=== PATIENT | female | born 1955 | race Caucasian/White ===

== ENCOUNTER → 2024-06-02 15:02 | Outpatient (REF) | payer MEDICARE, BC, SELFPAY | LOC: PAVMRI 15:02 | PROVIDERS: ATTENDING PHYSICIAN Physician Assistant; FAMILY PHYSICIAN Internal Medicine | DX: M54.16 Radiculopathy, lumbar region (principal) | CPT/HCPCS: 72148 ==

== ENCOUNTER 2024-06-25 12:39 | Emergency (ER) | payer MEDICARE, BC, SELFPAY ==
[2024-06-25] VITALS (7 sets, daily range): BP systolic 117–132; BP diastolic 35–72; PULSE 65; O2SAT 98; BMI 44.3
[2024-06-25] MEDS: DECADRON 10 MG IM (14:07)
--- NOTE | 2024-06-25 14:09 | ED.GENMED ---
History of Present Illness
<BERNADETTE Mclaughlin - Last Filed: 06/25/24 16:36>
General
Chief Complaint: Musculo-Skeletal Complaint
Source: patient
Exam Limitations: none
Time Seen by Provider: 06/25/24 12:53
Nursing documentation reviewed up to this point in time: agreed with
History of Present Illness
History of Present Illness:
68 yr. old now female presents to the ER from [facility] complaining of pain to the right buttock which radiates down her right leg. She reports she has had this for years however it has gotten worse. She recently saw [facility]
orthopedics and had an MRI done June 02. She has another appointment on July 13 for further evaluation of this pain.
She took acetaminophen however nothing else. She normally does walk with a walker it is taking longer for her to walk. She denies any recent trauma. She denies any weakness in her legs. She denies any loss of bowel or bladder.
Past History
<BERNADETTE Mclaughlin - Last Filed: 06/25/24 16:36>
Past History
ED Past Medical History: HTN, Hypercholesterolemia, Seizures and Psychiatric (Depression)
ED Past Surgical History: Orthopedic (Foot surgery Left)
Social History
Tobacco: Former smoker
Alcohol: None
Personal:
Living: half-way ([place])
Review of Systems
<BERNADETTE Mclaughlin - Last Filed: 06/25/24 16:36>
Review of Systems
Allergies reviewed?: Yes
All Other Systems: ROS reviewed and negative except as documented in HPI and ROS
Constitutional: Reports no symptoms; Denies fever, fatigue or chills
Respiratory: Reports no symptoms
Cardiac: Reports no symptoms
: Denies incontinence
Musculoskeletal: Reports other (Pain in right buttocks rating down right anterior thigh)
Skin: Reports no symptoms
Neurological: Reports no symptoms
Psychiatric: Reports no symptoms
Phy Exam
<BERNADETTE Mclaughlin - Last Filed: 06/25/24 16:36>
General Physical Exam
General Presentation: no apparent distress
General age: appears stated age
General Skin: warm and dry
General Habitus: elderly and obese
General Hydration: appears well hydrated
Neurological Exam
Neurological Exam: alert, oriented x3 and other (Normal distal sensation bilaterally normal dorsiflexion plantarflexion negative straight leg raise)
Musculoskeletal Exam
Musculoskeletal Exam: other (strong pulses b/ l l/e tender to the right buttock.)
Skin Exam
Skin Exam: normal color and warm/dry
Psychiatric Exam
Psychiatric Exam: normal mood/affect
Course
<BERNADETTE Mclaughlin - Last Filed: 06/25/24 16:36>
Orders/Labs/Results
Orders:
Orders
06/25/24 13:54
Dexamethasone Sod Phosphate [Decadron] 10 mg IM NOW STA
06/25/24 14:15
Gabapentin [Neurontin] 800 mg PO NOW STA
Physical Therapy Consult [Pt Eval And Treat] Urgent
Activity Level: Ambulate
Vital Signs
Initial and Last Documented VS:
Initial Vital Signs
Temp Pulse Resp BP Pulse Ox
98 F 76 12 129/72 100
06/25/24 12:46 06/25/24 12:46 06/25/24 12:46 06/25/24 12:46 06/25/24 12:46
Last Documented Vital Signs
Temp Pulse Resp BP Pulse Ox
98 F 79 16 132/64 96
06/25/24 12:46 06/25/24 14:11 06/25/24 14:11 06/25/24 14:11 06/25/24 14:11
Area Operations Manager consulted with Physician
Area Operations Manager consulted with physician?: Yes
Name of Physician Consulted: Percy
<Vinny Greer DO - Last Filed: 06/25/24 14:22>
Orders/Labs/Results
Orders:
Orders
06/25/24 13:54
Dexamethasone Sod Phosphate [Decadron] 10 mg IM NOW STA
06/25/24 14:15
Gabapentin [Neurontin] 800 mg PO NOW STA
Physical Therapy Consult [Pt Eval And Treat] Urgent
Activity Level: Ambulate
Vital Signs
Initial and Last Documented VS:
Initial Vital Signs
Temp Pulse Resp BP Pulse Ox
98 F 76 12 129/72 100
06/25/24 12:46 06/25/24 12:46 06/25/24 12:46 06/25/24 12:46 06/25/24 12:46
Last Documented Vital Signs
Temp Pulse Resp BP Pulse Ox
98 F 79 16 132/64 96
06/25/24 12:46 06/25/24 14:11 06/25/24 14:11 06/25/24 14:11 06/25/24 14:11
<BERNADETTE Mclaughlin - Last Filed: 06/25/24 16:36>
MDM/Problems Addressed
Differential Diagnosis Includes:
Not limited to sciatica and radiculopathy
MDM/Problems Addressed:
Symptoms are consistent with sciatica. Patient was able to ambulate with a walker here. She was given 1 dose of Decadron IM. Will send home with a steroid Dosepak. Patient has an appointment July 13 with [facility] orthopedics for further
evaluation of this and to review her MRI. No neurological deficits. Patient no acute distress . Pt was eval by PT.
Patient feels comfortable going home not limited to sciatica and radiculopathy
<BERNADETTE Mclaughlin - Last Filed: 06/25/24 16:36>
*Critical Care Note
Total Time (30-74mins, 75-104mins- exclusive of procedures): Not Applicable
ED Attending Note
<BERNADETTE Mclaughlin - Last Filed: 06/25/24 16:36>
-
Portions of this chart may have been created with voice recognition software.� Occasional wrong word or��sound alike� substitutions may have occurred due to the inherent limitations of voice recognition software.
<Vinny Greer DO - Last Filed: 06/25/24 14:22>
ED Attending Note
Patient seen and examined by attending physician: Yes
I performed the substantive portion of visit, reviewed & personally made and approve the management plan that is documented in note by myself or STEW.: Yes
ED Attending Note:
Patient is a 68-year-old female from a local assisted living facility who presents with increasing right buttock pain and difficulty ambulating. Patient had an MRI recently and this is an exacerbation of an ongoing problem for weeks to months.
Patient denies fever or chills. Patient denies any recent illnesses or injuries. Patient denies any incontinence. Patient is having increasing amount difficulty ambulating and putting pressure on it. On physical exam the patient is morbidly
obese with tenderness in the right buttock that increases with straight leg raising on the right. Patient's sensory is intact as well as no motor focality. Patient appears to have sciatica. Patient will be treated accordingly and discharged.
Discharge Plan
Departure
Patient Disposition: Home (Routine Discharge)
Date of Disposition: 06/25/24
Time of Disposition: 16:30
Patient with high blood pressure during this ER visit?: No
Condition: Fair
Covid-19: Not Applicable
Discharge Problem:
Sciatica
Instructions: Sciatica (DC)
Prescriptions:
New
methylprednisolone [Medrol (Sekou)] 4 mg tablets,dose pack
See Rx Instructions .ROUTE .COMPLEX Qty: 21 0RF
Rx Instructions:
for 6 days
No Action
lamotrigine 200 mg Tablet
200 mg PO BID
atorvastatin [Lipitor] 10 mg Tablet
10 mg PO HS
lisinopril 20 mg Tablet
40 mg PO HS
acetazolamide 250 mg Tablet
250 mg PO DAILY
primidone 250 mg Tablet
250 mg PO DAILY
primidone 250 mg Tablet
500 mg PO HS
gabapentin 800 mg Tablet
800 mg PO TID
aspirin 81 mg Tablet,Chewable
81 mg PO DAILY
levetiracetam [Keppra] 750 mg Tablet
1,500 mg PO BID
calcium carbonate-vitamin D3 [Calcium 500 With D] 500 mg-10 mcg (400 unit) Tablet
1 tab PO BID
cyanocobalamin (vitamin B-12) [Vitamin B-12] 1,000 mcg Tablet Extended Release
1,000 mcg PO DAILY
loperamide [Imodium A-D] 2 mg Capsule
2 mg PO Q6HPRN PRN (Reason: diarrhea)
acetaminophen 500 mg Tablet
500 mg PO Q6HPRN PRN (Reason: pain/fever)
guaifenesin [Siltussin OROZCO] 100 mg/5 mL Liquid
200 mg PO Q4HPRN PRN (Reason: cough)
cholecalciferol (vitamin D3) 25 mcg (1,000 unit) Tablet
25 mcg PO DAILY
Referrals:
Jose F Song MD [Family Provider] -
Activity Restrictions/Additional Instructions:
Follow-up with [facility] orthopedics as scheduled. You may start Medrol Dosepak tomorrow this was sent to your pharmacy. Continue to use your walker for ambulation return if any worsening of symptoms
Interventions
Interventions:
*Risk Screen - Suicide Last Done: 06/25/24 12:43
*General Assessment Last Done: 06/25/24 12:43
*Neglect/Abuse Screening Last Done: 06/25/24 12:43
ED- Fall Risk Assessment Last Done: 06/25/24 12:47
*ED COVID-19 Vaccine History Last Done: 06/25/24 12:43
ED-Musculoskeletal Assessment Last Done: 06/25/24 12:52
Discharge Date and Time
Print Language: MALAWIAN
[2024-06-25] MEDS: NEURONTIN 800 MG PO (16:22)
--- NOTE | 2024-06-25 22:05 | EDRN ---
Pt has been sleeping, called because she needed to go to the bathroom. Pt upset she is still here waiting for d/c transport 'now I know why people hate going to the hospital.' Pt ambulatory to bathroom with walker, gait steady. Pt complained
about hospital gown asking why she had to wear one. Explained why patients change into hospital gowns. 'I was seen 25 years ago so why the hell do I need it?' Pt informed she can remove the gown and put on her top. Pt assisted with putting on
her bra per her request. Pt put on her top then got back into stretcher. Pt declined food and beverage stating it would just make her have to go to the bathroom more. Informed there is one pt waiting to be picked up then she will be picked up.
--- NOTE | 2024-06-25 23:27 | EDRN ---
Report given to Acute Care crew
== END 2024-06-25 23:35 | disposition home or self-care (01) ==
LOC: EMR 12:39
PROVIDERS: EMERGENCY PHYSICIAN Emergency Medicine; FAMILY PHYSICIAN Internal Medicine
DX: M54.30 Sciatica, unspecified side (principal); I10 Essential (primary) hypertension; E78.00 Pure hypercholesterolemia, unspecified; E66.01 Morbid (severe) obesity due to excess calories; Z87.891 Personal history of nicotine dependence
CPT/HCPCS: 99282; 96372

== ENCOUNTER → 2024-07-24 09:33 | Outpatient (REF) | payer MEDICARE, BC, SELFPAY ==
[2024-07-24 11:26] LABS: ALT (SGPT) 14 U/L (0-35); AST (SGOT) 19 U/L (14-36); Albumin 3.6 g/dl (3.5-5.0); Alkaline Phosphatase 75 U/L (38-126); Direct Bilirubin 0.2 mg/dl (0.0-0.4); Total Bilirubin 0.3 mg/dl (0.2-1.3); Total Protein 6.5 g/dl (6.3-8.2)
== END ==
LOC: OLABWPC 09:33
PROVIDERS: ATTENDING PHYSICIAN Internal Medicine; OTHER PHYSICIAN Nurse Practitioner Family
DX: E78.5 Hyperlipidemia, unspecified (principal)
CPT/HCPCS: 36415; 80076

== ENCOUNTER 2024-09-25 15:37 | Emergency (ER) | payer MEDICARE, BC, SELFPAY ==
[2024-09-25 15:42] VITALS: BP 94/49
[2024-09-25 15:48] VITALS: BMI 35.0
[2024-09-25 15:54] LABS: % Basophils 0.5 % (0-2); % Eosinophils 2.3 % (0-6); % Immature Granulocytes 0.3 % (0-0.5); % Lymphocytes 17.4 % (20.5-51.1); % Monocytes 13.2 % (1.7-9.3); % Neutrophils 66.3 % (42.2-75.2); Absolute Eosinophils 0.2 10^3/uL (0-0.7); Absolute Lymphocytes 1.3 10^3/uL (1.2-3.4); Absolute Neutrophils 4.8 10^3/uL (1.4-6.5); Hematocrit 37.3 % (37.0-47.0); Hemoglobin 12.4 g/dL (12.0-16.0); Mean Corp Hgb Conc. 33.2 g/dL (33.0-37.0); Mean Corpuscular Hgb 34.4 pg (27.0-31.0); Mean Corpuscular Volume 103.6 fL (81.0-99.0); Nucleated Red Blood Cells % 0 %; Platelet Count 179 10^3/uL (130-400); Red Cell Dist. Width 11.9 % (11.5-14.5); White Blood Cell Count 7.3 10^3/uL (4.8-10.8)
[2024-09-25 16:00] VITALS: BP 108/55
[2024-09-25 16:13] LABS: ALT (SGPT) 27 U/L (0-35); AST (SGOT) 29 U/L (14-36); Albumin 3.9 g/dl (3.5-5.0); Alkaline Phosphatase 98 U/L (38-126); Blood Urea Nitrogen 32 mg/dl (7-17); Calcium 9.3 mg/dl (8.4-10.2); Carbon Dioxide 24 mmol/L (22-30); Chloride 98 mmol/L (98-107); Estimated Creatinine Clearance 30 ml/min; Glucose 98 mg/dl (70-99); Potassium 3.6 mmol/L (3.5-5.1); Sodium 134 mmol/L (135-145); Total Bilirubin 0.4 mg/dl (0.2-1.3); eGFR 24.73
[2024-09-25] MEDS: NSS 1000 IV (16:21)
--- NOTE | 2024-09-25 16:33 | ED.GENMED ---
History of Present Illness
<Asim Knox DO, Resident - Last Filed: 09/25/24 16:49>
General
Chief Complaint: Abdominal Symptoms
Source: patient
Exam Limitations: none
Time Seen by Provider: 09/25/24 15:58
History of Present Illness
History of Present Illness:
69-year-old female past medical history significant for epilepsy/seizures, hyperlipidemia, hypertension presents from [facility] for approximately 4 days of nausea, vomiting, diarrhea and weakness. Weakness started over the
last 24 hours, patient endorses vomiting of 2 days duration starting on Wednesday, with associated nausea. She also endorses starting to have diarrhea, which resolved last night. Diarrhea is nonbloody, watery. Patient reports not eating and drinking
well, endorses that there are sick contacts at [facility], and she denies any knowledge of any food which triggered the symptoms.
Past History
<Asim Knox DO, Resident - Last Filed: 09/25/24 16:49>
Past History
ED Past Medical History: HTN, Hypercholesterolemia, Seizures and Psychiatric (Depression)
ED Past Surgical History: Orthopedic (Foot surgery Left)
Social History
Tobacco: Former smoker
Alcohol: None
Personal:
Living: prison ([place])
Review of Systems
<Asim Knox DO, Resident - Last Filed: 09/25/24 16:49>
Review of Systems
Constitutional: Denies fever
Respiratory: Reports no symptoms
Cardiac: Reports no symptoms
ABD/GI: Reports abdominal pain (Endorses abdominal pain when lying prone), nausea, vomiting and diarrhea
Musculoskeletal: Reports other (Left ankle pain)
Neurological: Reports weakness and other (Reports petit mall seizures, which happen frequently every couple days or so. Her last episode was 3 to 4 days prior.)
Phy Exam
<Asim Knox DO, Resident - Last Filed: 09/25/24 16:49>
General Physical Exam
General Presentation: well appearing
General Mental: alert
General Hydration: dry mucous membranes and poor skin turgor
Cardiovascular Exam
Cardiovascular Exam: regular rate/rhythm, no edema and no murmur
Pulmonary Exam
Pulmonary Exam: lungs clear
Oxygen Status: room air
Gastrointestinal Exam
Gastrointestinal Exam: non tender (Nontender in all 4 quadrants to deep and light palpation), soft and other (No rebound, no guarding on exam)
Neurological Exam
Neurological Exam: alert and oriented x3
Psychiatric Exam
Psychiatric Exam: normal mood/affect
Course
<Asim Knox DO, Resident - Last Filed: 09/25/24 16:49>
Orders/Labs/Results
Orders:
Orders
09/25/24 15:40
Complete Blood Count/With Diff Urgent
Comprehensive Metabolic Panel Urgent
09/25/24 16:17
Electrocardiogram (*1) Urgent
Reason for Study: Abdominal Pain
EKG- Treatment ONCE
Norovirus by PCR Urgent
SOM Source: Feces/Stool
Specimen Description:
0.9% Sodium Chloride 1000 ml [Nss] 1,000 ml IV BOLUS
Abnormal Lab Results
09/25/24
15:40
RBC 3.60 L 10^6/uL
(4.20-5.40)
MCV 103.6 H fL
(81.0-99.0)
MCH 34.4 H pg
(27.0-31.0)
MPV 12.0 H fL
(7.4-10.4)
Absolute Monos (auto) 1.0 H 10^3/uL
(0.1-0.6)
Lymphocytes % 17.4 L %
(20.5-51.1)
Monocytes % 13.2 H %
(1.7-9.3)
Sodium 134 L mmol/L
(135-145)
BUN 32 H mg/dl
(7-17)
Creatinine 2.1 H mg/dL
(0.6-1.0)
09/25/24 15:40
09/25/24 15:40
Vital Signs
Initial and Last Documented VS:
Initial Vital Signs
Temp Pulse Resp BP Pulse Ox
97.5 F 76 14 94/49 94
09/25/24 15:42 09/25/24 15:42 09/25/24 15:42 09/25/24 15:42 09/25/24 15:42
Last Documented Vital Signs
Temp Pulse Resp BP Pulse Ox
97.5 F 71 14 108/55 94
09/25/24 15:42 09/25/24 16:45 09/25/24 15:42 09/25/24 16:00 09/25/24 16:30
Judelt;Silvano Pete, DO - Last Filed: 09/25/24 17:39>
Orders/Labs/Results
Orders:
Orders
09/25/24 15:40
Complete Blood Count/With Diff Urgent
Comprehensive Metabolic Panel Urgent
09/25/24 16:17
Electrocardiogram (*1) Urgent
Reason for Study: Abdominal Pain
EKG- Treatment ONCE
Norovirus by PCR Urgent
SOM Source: Feces/Stool
Specimen Description:
0.9% Sodium Chloride 1000 ml [Nss] 1,000 ml IV BOLUS
Abnormal Lab Results
09/25/24
15:40
RBC 3.60 L 10^6/uL
(4.20-5.40)
MCV 103.6 H fL
(81.0-99.0)
MCH 34.4 H pg
(27.0-31.0)
MPV 12.0 H fL
(7.4-10.4)
Absolute Monos (auto) 1.0 H 10^3/uL
(0.1-0.6)
Lymphocytes % 17.4 L %
(20.5-51.1)
Monocytes % 13.2 H %
(1.7-9.3)
Sodium 134 L mmol/L
(135-145)
BUN 32 H mg/dl
(7-17)
Creatinine 2.1 H mg/dL
(0.6-1.0)
09/25/24 15:40
09/25/24 15:40
Vital Signs
Initial and Last Documented VS:
Initial Vital Signs
Temp Pulse Resp BP Pulse Ox
97.5 F 76 14 94/49 94
09/25/24 15:42 09/25/24 15:42 09/25/24 15:42 09/25/24 15:42 09/25/24 15:42
Last Documented Vital Signs
Temp Pulse Resp BP Pulse Ox
97.5 F 71 14 108/55 94
09/25/24 15:42 09/25/24 16:45 09/25/24 15:42 09/25/24 16:00 09/25/24 16:30
<Asim Knox DO, Resident - Last Filed: 09/25/24 16:49>
MDM/Problems Addressed
Differential Diagnosis Includes:
Acute viral gastrointestinal illness vs dehydration vs generalized weakness
MDM/Problems Addressed:
#Acute viral gastrointestinal illness versus dehydration versus weakness
Symptoms consistent with acute viral GI illness, very likely norovirus, patient endorses sick contacts at [facility]
Norovirus testing ordered, results pending currently
Currently patient is not nauseous or vomiting, diarrhea has resolved. however, patient endorsing generalized weakness
Very likely weakness is secondary to dehydration
Ordered 1 L normal saline bolus, will also encourage oral intake of fluids
Will check electrolytes and replete as needed, labs significant for sodium 134, very likely hypovolemic hyponatremia.
Currently no need for antinausea medications as patient is not nauseous, will treat symptomatically as needed
Patient is noted to be in acute renal failure/SARAH with a creatinine 2.1, her baseline approximately 0.7
BUN/creatinine ratio 15.2, indicating possible infrarenal etiology for SARAH, likely exacerbated by intravascular volume loss
We encouraged patient to consider inpatient admission, however she is adamant about not wanting to be admitted. Will initiate normal saline infusion and oral intake of fluids and reevaluate in an hour
<Silvano Pete DO - Last Filed: 09/25/24 17:39>
*Pulse Oximetry
Patient hypoxic: no
*Founder And Chief Executive Officer Interpretation
Rate: normal
Interpretation: normal
Heart Rate: 78
Rhythm: sinus
*Critical Care Note
Total Time (30-74mins, 75-104mins- exclusive of procedures): Not Applicable
<Silvano Pete DO - Last Filed: 09/25/24 17:39>
Update Note
Update Note:
5:40 PM update, patient tolerating p.o. fluids, no vomitus
ED Attending Note
<Asim Knox DO, Resident - Last Filed: 09/25/24 16:49>
-
Portions of this chart may have been created with voice recognition software.� Occasional wrong word or��sound alike� substitutions may have occurred due to the inherent limitations of voice recognition software.
<Silvano Pete DO - Last Filed: 09/25/24 17:39>
ED Attending Note
Patient seen and examined by attending physician: Yes
I performed a history and physical exam of patient and discussed management with resident, I reviewed resident's note and agree with documented findings and plan of care.: Yes
ED Attending Note:
Seen with resident examined independently prison patient nausea vomiting diarrhea for a few days positive sick contacts, currently tolerating some p.o. fluids, sent here here she states she has been tired sleeping a lot no abdominal pain no
blood in her stools, labs are noted looks like she has acute renal insufficiency, suspect volume contracted, I did recommend admission she politely declined she will stay for some IV fluids, it would be reasonable although not ideal to discharge her
if she can tolerate p.o. fluids
Discharge Plan
Departure
Patient Disposition: Home (Routine Discharge)
Date of Disposition: 09/25/24
Time of Disposition: 17:39
Patient with high blood pressure during this ER visit?: No
Condition: Good
Discharge Problem:
Acute dehydration
Instructions: Dehydration, Adult (DC), Diarrhea in teens and adults
Prescriptions:
No Action
lamotrigine 200 mg Tablet
200 mg PO BID
atorvastatin [Lipitor] 10 mg Tablet
10 mg PO HS
lisinopril 20 mg Tablet
40 mg PO HS
acetazolamide 250 mg Tablet
250 mg PO DAILY
primidone 250 mg Tablet
250 mg PO DAILY
primidone 250 mg Tablet
500 mg PO HS
gabapentin 800 mg Tablet
800 mg PO TID
aspirin 81 mg Tablet,Chewable
81 mg PO DAILY
levetiracetam [Keppra] 750 mg Tablet
1,500 mg PO BID
calcium carbonate-vitamin D3 [Calcium 500 With D] 500 mg-10 mcg (400 unit) Tablet
1 tab PO BID
cyanocobalamin (vitamin B-12) [Vitamin B-12] 1,000 mcg Tablet Extended Release
1,000 mcg PO DAILY
loperamide [Imodium A-D] 2 mg Capsule
2 mg PO Q6HPRN PRN (Reason: diarrhea)
acetaminophen 500 mg Tablet
500 mg PO Q6HPRN PRN (Reason: pain/fever)
guaifenesin [Siltussin OROZCO] 100 mg/5 mL Liquid
200 mg PO Q4HPRN PRN (Reason: cough)
cholecalciferol (vitamin D3) 25 mcg (1,000 unit) Tablet
25 mcg PO DAILY
methylprednisolone [Medrol (Sekou)] 4 mg tablets,dose pack
See Rx Instructions .ROUTE .COMPLEX Qty: 21 0RF
Rx Instructions:
for 6 days
Referrals:
Jose F Song MD [Family Provider] - Next open appointment
Activity Restrictions/Additional Instructions:
Drink plenty of fluids, Zofran as needed for nausea vomiting
Interventions
Interventions:
*Risk Screen - Suicide Last Done: 09/25/24 15:42
*General Assessment Last Done: 09/25/24 15:42
*Neglect/Abuse Screening Last Done: 09/25/24 15:42
ED- Fall Risk Assessment Last Done: 09/25/24 15:42
*ED COVID-19 Vaccine History Last Done: 09/25/24 15:42
[id number] Assessment Last Done: 09/25/24 15:42
Discharge Date and Time
Print Language: DIVEHI
== END 2024-09-25 19:13 | disposition home or self-care (01) ==
LOC: EMR 15:37
PROVIDERS: Emergency Medicine; EMERGENCY PHYSICIAN Emergency Medicine; FAMILY PHYSICIAN Internal Medicine
DX: E86.0 Dehydration (principal); N17.9 Acute kidney failure, unspecified; G40.909 Epilepsy, unspecified, not intractable, without status epilepticus; E78.00 Pure hypercholesterolemia, unspecified; I10 Essential (primary) hypertension; R11.2 Nausea with vomiting, unspecified; R19.7 Diarrhea, unspecified; R53.1 Weakness; Z87.891 Personal history of nicotine dependence
CPT/HCPCS: 99283; 96360; 80053; 85025; 93005

== ENCOUNTER 2024-09-26 10:41 | Inpatient (IN) | payer MEDICARE, BC, SELFPAY ==
[2024-09-26] VITALS (7 sets, daily range): BP systolic 113–146; BP diastolic 56–80; BMI 43.3; BMI 43.6
--- NOTE | 2024-09-26 05:59 | ED.GENMED ---
History of Present Illness
General
Chief Complaint: Fall
Time Seen by Provider: 09/26/24 05:59
History of Present Illness
History of Present Illness:
TIME OF INITIAL ENCOUNTER: 6 AM
HPI: Patient presents from [facility] by ambulance. She got up from her chair with a walker, fell. She normally uses a walker. She describes 9 out of 10 pain at the left ankle. She denies any head injury. She has no neck pain. She has
been having chronic left knee pain that is noted Dr. Robertson.
EXAM:
GENERAL: The patient appears generally weak and debilitated
CERVICAL SPINE: No midline c-spine tenderness with excellent AROM
HEAD: No evidence of craniofacial trauma
CHEST: No chest wall tenderness, normal heart sounds
LUNGS: Equal lung sounds, no respiratory distress
ABDOMEN: No abdominal tenderness, no peritoneal signs
EXTREMITIES: There is tenderness to the distal left tib-fib. Mild deformity noted. Good distal perfusion
NEURO: Good strength all extremities, appropriate mental status, slow speech/language
NUMBER AND COMPLEXITY OF PROBLEMS ADDRESSED AT THE ENCOUNTER
� Chronic conditions affecting care: High blood pressure, hyperlipidemia, seizures this is an acute problem
� Acute Exacerbation and/or Progression of Chronic Illness: This is an acute problem
� Differential Diagnosis includes: Ankle sprain, ankle fracture, tib-fib fracture
AMOUNT AND/OR COMPLEXITY OF DATA TO BE REVIEWED AND ANALYZED
� I performed an independent evaluation of and my interpretation is:
EKG:
CT: CT imaging of the distal left lower extremity reviewed
X-rays: X-ray shows fracture just above the screws of the distal right tibia, on tib-fib x-ray, there also appears to be a cortical disruption near the left fibular head
Laboratory Studies: White count normal, hemoglobin 11.7, borderline renal insufficiency but creatinine is improved today compared to yesterday
Other:
� Review of other/old records: The patient was seen here yesterday with dehydration.
� Clinical information was obtained by an independent historian: EMS
� Prescriptions/Medications Considered but not given:
� Further testing considered but not performed:
RISK OF COMPLICATIONS AND/OR MORBIDITY OR MORTALITY OF PATIENT MANAGEMENT
� Social determinants of health affecting care: Resides at [facility]
� Discussion with other providers: I communicated with Dr. Ceballos who recommends long-leg splint with use labs and elevation and ice. Hospitalist, Dr. Kolb for admission at 7:10 AM
� Escalation of care including admission/observation vs risk of discharge considered: Given the patient's inability to walk and normally uses a walker to begin with, will plan admission to hospital medicine service and Ortho will
see in follow-up.
ANY OTHER UPDATES:
Past History
Past History
ED Past Medical History: HTN, Hypercholesterolemia, Seizures and Psychiatric (Depression)
ED Past Surgical History: Orthopedic (Foot surgery Left)
Social History
Tobacco: Former smoker
Alcohol: None
Personal:
Living: [facility] ([facility])
Phy Exam
Physical Exam
Physical Exam:
See HPI
Course
Orders/Labs/Results
Orders:
Orders
09/26/24 04:31
Ankle, left 3 view CR [CR Ankle - Left Min 3 Views ] Urgent
Comment:
Reason For Exam: Fall + ankle injury
09/26/24 06:11
0.9% Sodium Chloride 500 ml [Nss] 500 ml IV BOLUS
Morphine Sulfate 2 mg IV NOW STA
Ondansetron Injectable [Zofran] 4 mg IV NOW STA
09/26/24 06:14
Splints/Slings/Crut- Treatment ONCE
Location: Left
Type of Splint: Long Leg Posterior
Comment: AND SUGAR TONG
09/26/24 06:15
CR Knee - Left 4 Or More View* Urgent
Comment:
Reason For Exam: fall; chronic pain
CR Leg Tibia/fibula Left 2 Vw Urgent
Comment:
Reason For Exam: fall pain
09/26/24 06:26
Basic Metabolic Panel Urgent
Complete Blood Count/With Diff Urgent
09/26/24 06:41
CT Lower Ext W/o Iv Cont Lt Urgent
Comment:
Reason For Exam: eval DISTAL TIB FIB (fracture) per ortho
09/26/24 07:32
Consult Orthopedic [ORTHOPEDIC CONSULT] Urgent
Consulting Provider: Marvel Ceballos
Was physician already notified: Yes
09/26/24 08:33
Type+Screen Routine
09/26/24 08:56
ABO2 Urgent
BBK Wristband Number:
Associate notified that ABO2 has been ordered: [id number]
Date: 09/26/24
Time: 08:45
Energy Conservation Representative ID: [id number]
09/27/24 Breakfast
NPO
Allow oral meds: Yes
Allow clear liquids: No
09/27/24 07:00
CeFAZolin 2 GRAM [Ancef] 2 grams in 10 ml IV PRE PROCEDURE
Abnormal Lab Results
09/26/24
06:26
RBC 3.37 L 10^6/uL
(4.20-5.40)
Hgb 11.7 L g/dL
(12.0-16.0)
Hct 35.6 L %
(37.0-47.0)
MCV 105.6 H fL
(81.0-99.0)
MCH 34.7 H pg
(27.0-31.0)
MCHC 32.9 L g/dL
(33.0-37.0)
MPV 11.6 H fL
(7.4-10.4)
Absolute Lymphs (auto) 1.1 L 10^3/uL
(1.2-3.4)
Absolute Monos (auto) 0.7 H 10^3/uL
(0.1-0.6)
Lymphocytes % 17.4 L %
(20.5-51.1)
Monocytes % 12.1 H %
(1.7-9.3)
BUN 27 H mg/dl
(7-17)
Creatinine 1.1 H mg/dL
(0.6-1.0)
09/26/24 06:26
09/26/24 06:26
Vital Signs
Initial and Last Documented VS:
Initial Vital Signs
Temp Pulse Resp BP Pulse Ox
36.5 C 66 12 113/60 100
09/26/24 04:06 09/26/24 04:06 09/26/24 04:06 09/26/24 04:06 09/26/24 04:06
Last Documented Vital Signs
Temp Pulse Resp BP Pulse Ox
36.5 C 70 17 139/68 95
09/26/24 04:06 09/26/24 06:45 09/26/24 06:45 09/26/24 07:30 09/26/24 07:30
Procedures
Splinting/Sling Placement
Left Ankle:
Pre-splint extermity exam: abnormal
Type of splint: sugar-tong and posterior long arm
Splint material: fiberglass
Splint checked by provider?: Yes
Normal distal neurovascular exam?: Yes
Additional information:
I did attempt to put some pressure at the fracture site but there is no palpable improvement�planning OR by Ortho tomorrow
*Critical Care Note
Total Time (30-74mins, 75-104mins- exclusive of procedures): Not Applicable
ED Attending Note
-
Portions of this chart may have been created with voice recognition software.� Occasional wrong word or��sound alike� substitutions may have occurred due to the inherent limitations of voice recognition software.
Discharge Plan
Departure
Patient Disposition: Admit
Date of Disposition: 09/26/24
Time of Disposition: 07:10
Presentation/result/management discussed w/ accepting MD/DO: Hospitalist
Patient with high blood pressure during this ER visit?: Yes
Discharge Problem:
Displaced fracture of distal end of left tibia
Prescriptions:
No Action
lamotrigine 200 mg Tablet
200 mg PO BID
lisinopril 20 mg Tablet
40 mg PO DAILY
acetazolamide 250 mg Tablet
250 mg PO DAILY
primidone 250 mg Tablet
250 mg PO DAILY
primidone 250 mg Tablet
500 mg PO HS
gabapentin 800 mg Tablet
800 mg PO TID
aspirin 81 mg Tablet,Chewable
81 mg PO DAILY
levetiracetam [Keppra] 750 mg Tablet
1,500 mg PO BID
calcium carbonate-vitamin D3 [Calcium 500 With D] 500 mg-10 mcg (400 unit) Tablet
1 tab PO BID
loperamide [Imodium A-D] 2 mg Capsule
2 mg PO Q6HPRN PRN (Reason: diarrhea)
acetaminophen 500 mg Tablet
500 mg PO Q6HPRN PRN (Reason: mild pain/fever)
guaifenesin [Siltussin OROZCO] 100 mg/5 mL Liquid
200 mg PO Q4HPRN PRN (Reason: cough)
cholecalciferol (vitamin D3) 25 mcg (1,000 unit) Tablet
25 mcg PO DAILY
tramadol 50 mg Tablet
50 mg PO Q8HPRN PRN (Reason: moderate pain)
Lissa Lotion
1 applic TOPICAL BID
Patient Comments:
to both elbows
rosuvastatin 5 mg Tablet
5 mg PO HS
cyanocobalamin (vitamin B-12) 1,000 mcg Tablet Extended Release
1,000 mcg PO DAILY
Referrals:
Jose F Song MD [Family Provider] -
Interventions
Interventions:
*Risk Screen - Suicide Last Done: 09/26/24 04:06
*General Assessment Last Done: 09/26/24 04:06
*Neglect/Abuse Screening Last Done: 09/26/24 04:06
ED- Fall Risk Assessment Last Done: 09/26/24 04:14
*ED COVID-19 Vaccine History Last Done: 09/26/24 04:14
ED-Musculoskeletal Assessment Last Done: 09/26/24 08:36
ED- Neurological Assessment Last Done: 09/26/24 08:36
ED-Skin Assessment Last Done: 09/26/24 04:14
Discharge Date and Time
Print Language: FAROESE
[2024-09-26] MEDS: ZOFRAN 4 MG IV (06:34)
[2024-09-26] MEDS: NSS 500 IV (06:36)
[2024-09-26] MEDS: MORPHINE SULFATE 2 MG IV (06:37)
[2024-09-26 06:40] LABS: % Basophils 0.5 % (0-2); % Eosinophils 2.6 % (0-6); % Immature Granulocytes 0.2 % (0-0.5); % Lymphocytes 17.4 % (20.5-51.1); % Monocytes 12.1 % (1.7-9.3); % Neutrophils 67.2 % (42.2-75.2); Absolute Eosinophils 0.2 10^3/uL (0-0.7); Absolute Lymphocytes 1.1 10^3/uL (1.2-3.4); Absolute Monocytes 0.7 10^3/uL (0.1-0.6); Absolute Neutrophils 4.1 10^3/uL (1.4-6.5); Hematocrit 35.6 % (37.0-47.0); Hemoglobin 11.7 g/dL (12.0-16.0); Mean Corp Hgb Conc. 32.9 g/dL (33.0-37.0); Mean Corpuscular Hgb 34.7 pg (27.0-31.0); Mean Corpuscular Volume 105.6 fL (81.0-99.0); Mean Platelet Volume 11.6 fL (7.4-10.4); Nucleated Red Blood Cells % 0 %; Platelet Count 176 10^3/uL (130-400); Red Blood Cell Count 3.37 10^6/uL (4.20-5.40); Red Cell Dist. Width 11.7 % (11.5-14.5); White Blood Cell Count 6.1 10^3/uL (4.8-10.8)
[2024-09-26 06:58] LABS: Blood Urea Nitrogen 27 mg/dl (7-17); Calcium 8.7 mg/dl (8.4-10.2); Carbon Dioxide 23 mmol/L (22-30); Chloride 100 mmol/L (98-107); Estimated Creatinine Clearance 52 ml/min; Glucose 93 mg/dl (70-99); Potassium 3.6 mmol/L (3.5-5.1); Sodium 135 mmol/L (135-145); eGFR 53.72
--- NOTE | 2024-09-26 09:49 | CON.ORTHO ---
Consultation
-
Date/Time Consultation Requested: 09/26/2024 @ 7:32 AM
Date/Time Consultation Performed: 09/26/2024 @ 7:33 AM
Requesting Provider: Tio Dickerson DO
Performing Provider: Carlos Montano PA-C for Dr. Ceballos
Reason for Consultation: Left Distal Tibia Shaft Fracture
Consultation - Orthopedics
History
HPI: The patient is a 69-year-old female with a past medical history significant for Epilepsy, Hypertension, and Hyperlipidemia who presents to [facility] Emergency Department via EMS after sustaining a mechanical fall. She reports that
she got up this morning around 4 AM to use the bathroom and unfortunately twisted her left ankle and fell. She normally utilizes a walker for ambulatory assistance. She resides at [facility]. Secondary to her fall, she reports left ankle
pain. X-rays and CT scan of the lower extremity was obtained, revealing an acute mildly comminuted obliquely oriented extra-articular fracture of the distal left tibial diaphysis with mild lateral displacement and valgus angulation of the distal
fracture fragment. There was also a minimally displaced proximal fibular fracture identified. She denies any head trauma or LOC. She has been treated in our office, most recently on 09/08/2024, for chronic left knee pain secondary to
osteoarthritis. Currently, she is resting in ED bed 4 and does report pain to her left ankle. She denies any paresthesias. She denies any anticoagulation use. She has a past surgical history significant for prior left ankle ORIF in 2019 at [facility]. Orthopedic surgery has been consulted for further management.
PAST MEDICAL HISTORY: Epilepsy, Hypertension, and Hyperlipidemia.
PAST SURGICAL HISTORY: Left ankle ORIF in 2019 at [facility].
SOCIAL HISTORY: Former smoker. Denies alcohol use. Denies illicit drug use. Ambulates with assistance of a walker. Lives at [facility].
FAMILY HISTORY: Non-contributory.
REVIEW OF SYSTEMS: 12-point review of systems obtained and negative except those mentioned in the HPI.
Allergies / Home Medications
Allergy/AdvReac Type Severity Reaction Status Date / Time
No Known Allergies Allergy Verified 09/26/24 04:05
�Medication �Instructions �Recorded
acetazolamide 250 mg tablet 250 mg PO DAILY Neurological 07/23/22
Condition
aspirin 81 mg chewable tablet 81 mg PO DAILY Blood clot 07/23/22
prevention/tx
calcium 500 mg (as 1 tab PO BID Supplement 07/23/22
carbonate)-vitamin D3 10 mcg (400
unit) tablet (Calcium 500 With D)
gabapentin 800 mg tablet 800 mg PO TID Neurological 07/23/22
Condition
lamotrigine 200 mg tablet 200 mg PO BID Seizures 07/23/22
levetiracetam 750 mg tablet 1,500 mg PO BID Seizures 07/23/22
(Keppra)
lisinopril 20 mg tablet 40 mg PO DAILY Blood pressure 07/23/22
primidone 250 mg tablet 250 mg PO DAILY Seizures 07/23/22
primidone 250 mg tablet 500 mg PO HS Seizures 07/23/22
acetaminophen 500 mg tablet 500 mg PO Q6HPRN PRN mild 04/20/23
pain/fever
cholecalciferol (vitamin D3) 25 25 mcg PO DAILY Supplement 04/20/23
mcg (1,000 unit) tablet
guaifenesin 100 mg/5 mL oral liquid 200 mg PO Q4HPRN PRN cough 04/20/23
loperamide 2 mg capsule (Imodium 2 mg PO Q6HPRN PRN diarrhea 04/20/23
A-D)
cyanocobalamin (vitamin B-12) 1,000 mcg PO DAILY Supplement 09/26/24
1,000 mcg tablet,extended release
lanolin-mineral oil lotion 1 applic topical BID dry skin 09/26/24
rosuvastatin 5 mg tablet 5 mg PO HS High Cholesterol 09/26/24
tramadol 50 mg tablet 50 mg PO Q8HPRN PRN moderate pain 09/26/24
Vital Signs / Lab Results
Temp Pulse Resp BP Pulse Ox
97.7 F 70 17 139/68 95
09/26/24 04:06 09/26/24 06:45 09/26/24 06:45 09/26/24 07:30 09/26/24 07:30
09/26/24 06:26
09/26/24 06:26
RADIOGRAPHIC FINDINGS:
CR Ankle - LEFT Min 3 Views was obtained at [facility] on 09/26/2024 and was made available for my review today. Findings: There is an acute obliquely oriented, mildly comminuted, extra-articular fracture of the distal left tibial
diaphysis. There the distal tibial fracture fragment is displaced laterally by 9 mm and anteriorly by 3.5 mm. There is a large amount of focal soft tissue swelling and subcutaneous edema in the medial left lower leg overlying the distal tibial
fracture. There is a chronic healed fracture of the medial malleolus which has been treated with percutaneous pinning. There is a chronic healed fracture of the distal left fibular diaphysis treated with open reduction and internal fixation
(ORIF). There is ossification in the region of the distal tibiofibular syndesmotic ligament consistent with chronic healed injury. There are small tibiotalar and talonavicular joint osteophytes. There is a moderate sized plantar calcaneal
enthesophyte. There are small accessory peroneal and navicular ossicles. Impression: 1) Acute obliquely oriented extra-articular fracture of the distal left tibial diaphysis with mild lateral and anterior displacement of the distal tibial fracture
fragment. 2) Chronic healed fracture of the distal left fibula treated with ORIF. 3) Chronic healed fracture of the medial malleolus treated with percutaneous pinning. 4) Mild osteoarthritis of the left tibiotalar and talonavicular joints. 5)
Moderate sized plantar calcaneal enthesophyte.
CR Knee - LEFT 4 or More View* was obtained at [facility] on 09/26/2024 and was made available for my review today. Impression: Minimally displaced left proximal fibula fracture consistent with Maisonneuve fracture. Mild tricompartmental
osteoarthritis with a moderate joint effusion.
CR Leg Tibia/fibula LEFT 2 Vw was obtained at [facility] on 09/26/2024 and was made available for my review. Impression: There is a minimally displaced proximal fibular fracture. Lateral plate and screw fixation of the distal fibula.
Surgical screws to the medial malleolus. Partially visualized known distal tibial fracture.
CT Lower Ext W/o IV Cont LT was also obtained at [facility] on 09/26/2024 and was made available for my review today. Impression: 1) Acute mildly comminuted obliquely oriented extra-articular fracture of the distal left tibial diaphysis
with mild lateral displacement and valgus angulation of the distal fracture fragment. 2) Chronic healed medial malleolus fracture treated with percutaneous pinning. 3) Chronic healed distal left fibular fracture treated with ORIF. 4) Tiny chronic
avulsion fractures of the distal tip of the fibula. 5) Mild osteoarthritis of the tibiotalar and talonavicular joints. 6) Moderate sized plantar calcaneal enthesophyte.
PHYSICAL EXAM:
General: well developed, well nourished female. Laying in bed ED 4. Reports pain to the left ankle.
HEENT: NCAT. Sclera anicteric. Normal conversational hearing.
Heart: No JVD.
Lungs: Normal work of breathing on room air.
MSK: Focused examination of the left lower extremity reveals long-leg splint in place. She is able to wiggle toes. Toes are pink and warm. Capillary refill is less than 2 seconds. There is also tenderness to palpation over the proximal left
fibula. NVI distally.
Assessment / Plan
ASSESSMENT: 69-year-old female with a left acute mildly comminuted obliquely oriented extra-articular fracture of the distal tibial diaphysis and minimally displaced left proximal fibula fracture. History of left ankle ORIF in 2019 at [facility].
PLAN: Unfortunately, the patient has sustained an acute left distal tibia shaft fracture following a mechanical fall earlier this morning. We discussed the treatment options. Recommended operative fixation. The risks, benefits, potential
complications, and expected post-operative course were reviewed. She agrees to proceed with surgical intervention. Surgical and blood consents were obtained. I spoke with patient's stepdaughter (POA) Estephanie Barnes who also provided consent to
proceed with surgical intervention. We will plan for the OR tomorrow for open reduction internal fixation LEFT tibia shaft fracture with intramedullary indra, possible removal of hardware under the direction of Dr. Arvizu as long as medically
cleared to proceed. Regarding left proximal fibula fracture, this is amenable to nonoperative treatment. Patient to remain NPO pMN for surgery tomorrow 09/27/2024. She is to remain nonweightbearing to her left lower extremity. Continue with ice
and strict elevation for edema control. Continue with pain management as needed. Ancef on-call to OR. Type and screen completed. All questions were answered. Orthopedic surgery will continue to follow.
[2024-09-26] MEDS: MORPHINE SULFATE 1 MG IV (12:14)
[2024-09-26] MEDS: TYLENOL 650 MG PO ×3 (12:25→20:54)
[2024-09-26] MEDS: KEPPRA 1500 MG PO ×2 (12:58→20:54)
[2024-09-26] MEDS: MYSOLINE 250 MG PO (13:00)
[2024-09-26] MEDS: LAMICTAL 200 MG PO ×2 (13:00→20:54)
[2024-09-26] MEDS: DIAMOX 250 MG PO (13:13)
--- NOTE | 2024-09-26 15:23 | HPS.HSE ---
Family Physician
-
Family Physician: Jose F Song
Chief Complaint
-
fall with fx
History of Present Illness
69-year-old female with a past medical history significant for Epilepsy, Hypertension, and Hyperlipidemia, recent ED visit yesterday for 4 days of nausea, vomiting, diarrhea and weakness. Noted to have SARAH. Advised for admission but patient refused
and went back to her facility but received 1 L bolus. Appx baseline cr .7; She reports that she got up this morning around 4 AM to use the bathroom and unfortunately twisted her left ankle and fell. She normally utilizes a walker for ambulatory
assistance. Subsequently had left ankle pain. X-rays and CT scan of the lower extremity was obtained, revealing an acute mildly comminuted obliquely oriented extra-articular fracture of the distal left tibial diaphysis with mild lateral
displacement and valgus angulation of the distal fracture fragment. There was also a minimally displaced proximal fibular fracture identified. Denies any head trauma or LOC. Denies any paresthesias or anticoagulation.
Medical History
Past Medical History
Past Medical History: Reports Other (Epilepsy, Hypertension, and Hyperlipidemia)
Past Surgical History: Reports Other ( left ankle ORIF in 2019 at [facility])
Social History
Tobacco: Former Smoker
Alcohol: None
Drug: None
Family History
Family History: Not pertinent
Allergies / Home Medications
Allergies reflects when Allergies were last updated in [employer].
Home Medications with original date entered in [employer]
Allergy/Medication List:
Allergies
Allergy/AdvReac Type Severity Reaction Status Date / Time
No Known Allergies Allergy Verified 09/26/24 04:05
Home Medications
acetazolamide 250 mg tablet 250 mg PO DAILY Neurological Condition 07/23/22
aspirin 81 mg chewable tablet 81 mg PO DAILY Blood clot prevention/tx 07/23/22
calcium 500 mg (as carbonate)-vitamin D3 10 mcg (400 unit) tablet (Calcium 500 With D) 1 tab PO BID Supplement 07/23/22
gabapentin 800 mg tablet 800 mg PO TID Neurological Condition 07/23/22
lamotrigine 200 mg tablet 200 mg PO BID Seizures 07/23/22
levetiracetam 750 mg tablet (Keppra) 1,500 mg PO BID Seizures 07/23/22
lisinopril 20 mg tablet 40 mg PO DAILY Blood pressure 07/23/22
primidone 250 mg tablet 250 mg PO DAILY Seizures 07/23/22
primidone 250 mg tablet 500 mg PO HS Seizures 07/23/22
acetaminophen 500 mg tablet 500 mg PO Q6HPRN PRN mild pain/fever 04/20/23
cholecalciferol (vitamin D3) 25 mcg (1,000 unit) tablet 25 mcg PO DAILY Supplement 04/20/23
guaifenesin 100 mg/5 mL oral liquid 200 mg PO Q4HPRN PRN cough 04/20/23
loperamide 2 mg capsule (Imodium A-D) 2 mg PO Q6HPRN PRN diarrhea 04/20/23
cyanocobalamin (vitamin B-12) 1,000 mcg tablet,extended release 1,000 mcg PO DAILY Supplement 09/26/24
lanolin-mineral oil lotion 1 applic topical BID dry skin 09/26/24
rosuvastatin 5 mg tablet 5 mg PO HS High Cholesterol 09/26/24
tramadol 50 mg tablet 50 mg PO Q8HPRN PRN moderate pain 09/26/24
Review of Systems
-
History Source: Patient
A 12 point ROS was completed and negative except as noted: Yes
Physical Exam
Vital Signs
Vital Signs
Temp Pulse Resp BP Pulse Ox
97.7 F 70 10 125/63 95
09/26/24 04:06 09/26/24 13:13 09/26/24 12:27 09/26/24 13:13 09/26/24 07:30
Physical Exam
General: Well Developed
HEENT: NormoCephalic
Respiratory: Clear
Cardiac: S1/S2 and Regular Rhythm
GI: Non Tender
Musculoskeletal: No Clubbing
Skin: Warm and Other (eft lower extremity reveals long-leg splint in place. She is able to wiggle toes. Toes are pink and warm. Capillary refill is less than 2 seconds. There is also tenderness to palpation over the proximal left fibula.)
Neuro: Awake, Oriented and AO x 3
Laboratory Results
-
09/26/24 06:26
09/26/24 06:26
Data Reviewed
-
Diagnostic Radiology: Report Reviewed by me
CT Scan: Report Reviewed by me
Lab Data: Labs Reviewed by me
Impression/Plan
-
IMPRESSION:
69-year-old female with w/ pmhx of Epilepsy, Hypertension, and Hyperlipidemia, now presents s/p fall with left acute mildly comminuted obliquely oriented extra-articular fracture of the distal tibial diaphysis and minimally displaced left proximal
fibula fracture.
PLAN:
#Acute left distal tibia shaft fracture
-OR tomorrow for open reduction internal fixation LEFT tibia shaft fracture with intramedullary indra, possible removal of hardware
-npo at [facility]
-HSQ, ASA 325mg daily most likely post OR
-remain nonweightbearing to her left lower extremity
-Continue with ice and strict elevation for edema control
- Continue with pain management as needed.
#Left proximal fibula fracture,
-this is amenable to nonoperative treatment.
#SARAH
� Resolving
� Continue IV fluids
#Seizures
� Continue lamotrigine, Keppra, permitting
#Hyperlipidemia
Continue statin
#Hypertension
� Hold lisinopril due to SARAH
#DVT ppx
-hsq
[2024-09-26] MEDS: LR 1000 IV (18:52)
[2024-09-26] MEDS: HEPARIN 5000 UNITS SC ×2 (18:52→23:14)
[2024-09-26] MEDS: NEURONTIN 600 MG PO ×2 (18:54→21:02)
[2024-09-26] MEDS: OSCAL 500 + D 500 MG PO (20:54)
[2024-09-26] MEDS: COLACE PO (20:57)
[2024-09-26] MEDS: SENOKOT PO (20:58)
[2024-09-26] MEDS: CRESTOR 5 MG PO (21:02)
[2024-09-26] MEDS: MYSOLINE 500 MG PO (21:04)
[2024-09-26] MEDS: TYLENOL PO (23:15)
--- NOTE | 2024-09-26 23:46 | PTCARENOTE ---
Received patient in bed upon change of shift. AAOX3. Oriented to unit. Call christensen within reach.
[2024-09-27] VITALS (15 sets, daily range): BP systolic 98–155; BP diastolic 55–82
[2024-09-27] MEDS: TYLENOL PO ×3 (04:22→16:05)
[2024-09-27] MEDS: MORPHINE SULFATE 1 MG IV ×2 (06:19→12:33)
--- NOTE | 2024-09-27 06:43 | W.PN.UPDATE ---
Update Note
Progress Note Update
Patient seen and evaluated this morning by Orthopedic surgery. Plan for open reduction internal fixation LEFT tibia shaft fracture with intramedullary indra, possible removal of hardware under the direction of Dr. Arvizu today. Patient to remain NPO.
Remain NWB to LLE. Ancef on-call to the OR. Encouraged ice therapy and strict elevation. Surgical and blood consent obtained and placed in patient's chart. Orthopedic surgery will continue to follow.
[2024-09-27] MEDS: VITAMIN B-12 PO (09:12)
[2024-09-27] MEDS: HEPARIN SC ×2 (09:13→16:04)
[2024-09-27] MEDS: SENOKOT PO (09:13)
[2024-09-27] MEDS: OSCAL 500 + D PO (09:13)
[2024-09-27] MEDS: VITAMIN D3 (cholecalciferol) PO (09:14)
[2024-09-27] MEDS: COLACE PO (09:14)
[2024-09-27] MEDS: ULTRAM 50 MG PO (09:18)
[2024-09-27] MEDS: LR 1000 IV (09:21)
[2024-09-27] MEDS: NEURONTIN 600 MG PO ×2 (09:22→21:06)
[2024-09-27] MEDS: TYLENOL 650 MG PO ×3 (09:22→23:24)
[2024-09-27] MEDS: KEPPRA 1500 MG PO ×2 (09:23→21:01)
[2024-09-27] MEDS: LAMICTAL 200 MG PO ×2 (09:24→21:50)
[2024-09-27] MEDS: MYSOLINE 250 MG PO (09:24)
[2024-09-27] MEDS: DIAMOX 250 MG PO (09:24)
[2024-09-27 09:51] LABS: Hematocrit 32.8 % (37.0-47.0); Hemoglobin 11.2 g/dL (12.0-16.0); Mean Corp Hgb Conc. 34.1 g/dL (33.0-37.0); Mean Corpuscular Hgb 34.9 pg (27.0-31.0); Mean Corpuscular Volume 102.2 fL (81.0-99.0); Mean Platelet Volume 11.9 fL (7.4-10.4); Platelet Count 141 10^3/uL (130-400); Red Blood Cell Count 3.21 10^6/uL (4.20-5.40); Red Cell Dist. Width 11.4 % (11.5-14.5)
[2024-09-27 10:08] LABS: Blood Urea Nitrogen 14 mg/dl (7-17); Calcium 8.7 mg/dl (8.4-10.2); Carbon Dioxide 27 mmol/L (22-30); Chloride 104 mmol/L (98-107); Estimated Creatinine Clearance 72 ml/min; Glucose 78 mg/dl (70-99); Potassium 3.9 mmol/L (3.5-5.1); Sodium 137 mmol/L (135-145); eGFR > 60.00
--- NOTE | 2024-09-27 10:58 | CM ---
Addendum entered by Zayra Alston 09/27/24 11:26:
Patient will require less than 30 exception documented on chart for skilled placement at [facility].
Original Note:
knowledge manager reviewed patient's chart and met with patient and patient was admitted with a tibia fracture, director case met with patient and patient reports that she lives in [facility] at [facility], patient was independent with adl's and used a
walker with ambulation, per patient her stepdaughter Estephanie is POA. Plan is for possible skilled placement and patient is agreeable to [facility], referral sent to [facility]. knowledge manager spoke with Cortney in admissions at
[facility].
PCP: Jose F Song
Pharmacy: [facility]
Plan; Skilled placement at [facility] when stable.
[2024-09-27] MEDS: NEURONTIN PO (16:04)
--- NOTE | 2024-09-27 16:11 | W.PN.HOSP.TC ---
Today's Communication/Plan
-
OR today
Assessment / Plan
Assessment / Plan
Physical Exam
General: Well Developed
HEENT: NormoCephalic
Respiratory: Clear
Cardiac: S1/S2 and Regular Rhythm
GI: Non Tender
Musculoskeletal: No Clubbing
Skin: Warm and Other (Left lower extremity reveals long-leg splint in place. She is able to wiggle toes. Toes are pink and warm. Capillary refill is less than 2 seconds. There is also tenderness to palpation over the proximal left fibula.)
Neuro: Awake, Oriented and AO x 3
69-year-old female with w/ pmhx of Epilepsy, Hypertension, and Hyperlipidemia, now presents s/p fall with left acute mildly comminuted obliquely oriented extra-articular fracture of the distal tibial diaphysis and minimally displaced left proximal
fibula fracture.
PLAN:
#Acute left distal tibia shaft fracture
-OR today for open reduction internal fixation LEFT tibia shaft fracture with intramedullary indra, possible removal of hardware
-HSQ, ASA 325mg daily most likely post OR
-remain nonweightbearing to her left lower extremity
-Continue with ice and strict elevation for edema control
- Continue with pain management as needed.
#Left proximal fibula fracture,
-this is amenable to nonoperative treatment.
#SARAH
� Resolving
� Continue IV fluids
#Seizures
� Continue lamotrigine, Keppra, permitting
#Hyperlipidemia
Continue statin
#Hypertension
� Hold lisinopril due to SARAH
#DVT ppx
-hsq
Anticipated Discharge: 24 - 48 hours
Subjective/Interval History
-
Date of Service: September 27, 2024
No acute events overnight
Objective Data
-
Labs:
Laboratory Results
09/27/24
09:39
WBC 4.0 L
Hgb 11.2 L
Hct 32.8 L
Plt Count 141
Sodium 137
Potassium 3.9
Chloride 104
Carbon Dioxide 27
BUN 14
Creatinine 0.8
Glucose 78
Calcium 8.7
Vital Signs:
Vital Signs
Temp Pulse Resp BP Pulse Ox
97.6 F 74 18 138/66 93
09/27/24 11:00 09/27/24 11:00 09/27/24 11:00 09/27/24 11:00 09/27/24 11:00
I&O
09/26/24 09/27/24 09/28/24
06:59 06:59 06:59
Intake Total 1130 / 1130
Output Total 1000 / 1000
Balance 130 / 130
Review of Systems
-
History Source: Patient
All other systems: Not reviewed unless documented
Data Reviewed
-
Diagnostic Radiology: Report Reviewed by me
CT Scan: Report Reviewed by me
Labs: Labs Reviewed by me
[2024-09-27] MEDS: DILAUDID 0.25 MG IV ×2 (19:36→19:53)
[2024-09-27] MEDS: SENOKOT 17.2 MG PO (21:01)
[2024-09-27] MEDS: OSCAL 500 + D 500 MG PO (21:02)
[2024-09-27] MEDS: COLACE 100 MG PO (21:02)
[2024-09-27] MEDS: MYSOLINE 500 MG PO (21:07)
[2024-09-27] MEDS: CRESTOR 5 MG PO (21:07)
[2024-09-27] MEDS: ANCEF 5 IV (21:50)
[2024-09-27] MEDS: HEPARIN 5000 UNITS SC (23:25)
[2024-09-28] VITALS (7 sets, daily range): BP systolic 95–138; BP diastolic 42–66; PULSE 74–75; O2SAT 98
[2024-09-28] MEDS: TYLENOL 650 MG PO ×5 (04:02→23:58)
[2024-09-28] MEDS: ANCEF 5 IV (05:05)
[2024-09-28] MEDS: LR 1000 IV (05:05)
[2024-09-28] MEDS: ULTRAM 50 MG PO ×2 (06:37→16:09)
--- NOTE | 2024-09-28 08:05 | W.PN.ORTHO ---
Today's Communication / Plan
-
POD#1 left tibia IMN under the direction of Dr. Arvizu
--NWB LLE. Ambulate with assistive device
--PT/OT
--There was a large amount of bloody drainage to the distal aspect of the dressing. This was taken down. New 4x4, ABD, tova, and MELY wrap applied. Continue to monitor. Reinforce as needed
--Continue with pain management as needed
--Recommend elevation and ice to help with swelling
--Aspirin 325mg daily x4 weeks postop for DVT prophylaxis
--Case management consult for discharge planning
--Will continue to follow
Assessment
.
Distal Motor Intact: Yes
Dressing:
Clean, dry and intact.
Plan
.
Surgery / Date: Left tibia IMN 09/27/24 ([facility])
DVT Prophylaxis: Aspirin
Activity:
Out of bed.
PT/OT
Subjective
.
.:
Patient resting comfortably in bed this morning. She does report pain in the left leg
Vital Signs and Labs
.
Vital Signs and Labs:
Temp Pulse Resp BP Pulse Ox
98.1 F 74 16 119/60 100
09/27/24 23:15 09/27/24 23:15 09/27/24 23:15 09/27/24 23:15 09/27/24 23:15
Physical Exam
-
Directed exam of left lower extremity with surgical dressing in place. There is a large amount of blood through to the MELY wrap. This was taken down to reveal a small draining poke hole. Other surgical incisions intact without drainage. +Edema and
ecchymosis. +general tenderness to palpation about the lower leg. calf is soft and nontender. decreased ROM due to pain. NVI distally
[2024-09-28 08:35] LABS: Hematocrit 32.9 % (37.0-47.0); Hemoglobin 10.9 g/dL (12.0-16.0); Mean Corp Hgb Conc. 33.1 g/dL (33.0-37.0); Mean Corpuscular Hgb 34.5 pg (27.0-31.0); Mean Corpuscular Volume 104.1 fL (81.0-99.0); Platelet Count 145 10^3/uL (130-400); Red Blood Cell Count 3.16 10^6/uL (4.20-5.40); Red Cell Dist. Width 11.5 % (11.5-14.5); White Blood Cell Count 5.1 10^3/uL (4.8-10.8)
[2024-09-28 09:25] LABS: Blood Urea Nitrogen 15 mg/dl (7-17); Calcium 8.6 mg/dl (8.4-10.2); Carbon Dioxide 23 mmol/L (22-30); Chloride 100 mmol/L (98-107); Estimated Creatinine Clearance 82 ml/min; Glucose 75 mg/dl (70-99); Potassium 4.2 mmol/L (3.5-5.1); Sodium 134 mmol/L (135-145); eGFR > 60.00
[2024-09-28] MEDS: HEPARIN SC (09:36)
[2024-09-28] MEDS: NEURONTIN 600 MG PO ×3 (09:40→21:07)
[2024-09-28] MEDS: VITAMIN D3 (cholecalciferol) 25 MCG PO (09:40)
[2024-09-28] MEDS: LAMICTAL 200 MG PO ×2 (09:40→21:59)
[2024-09-28] MEDS: KEPPRA 1500 MG PO ×2 (09:42→21:08)
[2024-09-28] MEDS: OSCAL 500 + D 500 MG PO ×2 (09:42→21:09)
[2024-09-28] MEDS: SENOKOT 17.2 MG PO ×2 (09:43→21:08)
[2024-09-28] MEDS: DIAMOX 250 MG PO (09:44)
[2024-09-28] MEDS: COLACE 100 MG PO ×2 (09:44→21:09)
[2024-09-28] MEDS: ASPIRIN 325 MG PO (09:44)
[2024-09-28] MEDS: VITAMIN B-12 1000 MCG PO (09:44)
[2024-09-28] MEDS: MYSOLINE 250 MG PO (09:45)
--- NOTE | 2024-09-28 11:53 | CM ---
records manager reviewed patient's chart and plan is for skilled placement, options reviewed with patient and patient has selected [facility], referral sent to [facility] and rn case manager will wait on documentation from
physician for 30 day exemption and then fax note to admissions at [facility].
Plan; Skilled placement at [facility], no Auth required.
[2024-09-28] MEDS: TYLENOL PO (12:30)
--- NOTE | 2024-09-28 14:14 | W.PN.HOSP.TC ---
Addendum entered and electronically signed by Damon Cuba MD 09/29/24 13:41:
patient will require less than 30 days of group home facility and patient�s symptoms or behaviors are stable
Original Note:
Today's Communication/Plan
-
Monitor hemoglobin.
Aspirin 325 mg daily
Orthopedics recommendations
Pain control
PT/OT
Assessment / Plan
Assessment / Plan
Physical Exam
General: Well Developed
HEENT: NormoCephalic
Respiratory: Clear
Cardiac: S1/S2 and Regular Rhythm
GI: Non Tender
Musculoskeletal: No Clubbing
Skin: Warm and Other (Large amount of blood through to the MELY wrap. small draining poke hole as per ortho. Other surgical incisions intact without drainage. +Edema and ecchymosis. +general tenderness to palpation about the lower leg. calf is soft
and nontender. decreased ROM due to pain. pulses present distally.)
Neuro: Awake, Oriented and AO x 3
69-year-old female with w/ pmhx of Epilepsy, Hypertension, and Hyperlipidemia, now presents s/p fall with left acute mildly comminuted obliquely oriented extra-articular fracture of the distal tibial diaphysis and minimally displaced left proximal
fibula fracture.
PLAN:
#Acute left distal tibia shaft fracture
-POD#1 left tibia IMN - Dr. Arvizu
-monitor Hgb post op
-NWB LLE. Ambulate with assistive device
-PT/OT
-New 4x4, ABD, tova, and MELY wrap applied. Continue to monitor. Reinforce as needed
-pain management
- elevation and ice to help with swelling
-Aspirin 325mg daily x4 weeks postop for DVT prophylaxis
#Hyponatremia
� Continue to monitor
� Mild
#Left proximal fibula fracture,
-this is amenable to nonoperative treatment.
#SARAH
� Resolved
� Continue IV fluids
#Seizures
� Continue lamotrigine, Keppra, permitting
#Hyperlipidemia
Continue statin
#Hypertension
� Hold lisinopril due to SARAH
#DVT ppx
-hsq
Anticipated Discharge: 24 - 48 hours
Subjective/Interval History
-
Date of Service: September 28, 2024
Medullary nail placed on 09/27, being controlled with pain regimen
Objective Data
-
Labs:
Laboratory Results
09/28/24
07:52
WBC 5.1
Hgb 10.9 L
Hct 32.9 L
Plt Count 145
Sodium 134 L
Potassium 4.2
Chloride 100
Carbon Dioxide 23
BUN 15
Creatinine 0.7
Glucose 75
Calcium 8.6
Vital Signs:
Vital Signs
Temp Pulse Resp BP Pulse Ox
98.2 F 73 18 103/46 100
09/28/24 12:00 09/28/24 12:00 09/28/24 12:00 09/28/24 12:00 09/28/24 12:00
I&O
09/27/24 09/28/24 09/29/24
06:59 06:59 06:59
Intake Total 1130 / 1130 1210 / 1210
Output Total 1000 / 1000 750 / 750
Balance 130 / 130 460 / 460
Review of Systems
-
History Source: Patient
All other systems: Not reviewed unless documented
Data Reviewed
-
Diagnostic Radiology: Report Reviewed by me
CT Scan: Report Reviewed by me
Labs: Labs Reviewed by me
[2024-09-28 19:09] LABS: Hepatitis C Antibody Negative (Negative)
[2024-09-28] MEDS: CRESTOR 5 MG PO (21:08)
[2024-09-28] MEDS: MYSOLINE 500 MG PO (21:08)
[2024-09-28] MEDS: ROXICODONE 5 MG PO (21:21)
[2024-09-29] VITALS (7 sets, daily range): BP systolic 97–148; BP diastolic 63–73; PULSE 78; O2SAT 96
[2024-09-29] MEDS: TYLENOL PO ×2 (05:08→23:35)
--- NOTE | 2024-09-29 07:35 | W.PN.ORTHO ---
Today's Communication / Plan
-
POD#2 left tibia IMN under the direction of Dr. Arvizu
--NWB LLE. Ambulate with assistive device
--PT/OT- prevent equinus contracture- consider CAM or night splint
--dressings C/D/I today
--Continue with pain management as needed
--Recommend elevation and ice to help with swelling
--Aspirin 325mg daily x4 weeks postop for DVT prophylaxis
--Case management consult for discharge planning
--Ortho will follow peripherally- please reengage with questions/concerns. Discharge info complete.
Assessment
.
Distal Motor Intact: Yes
Dressing:
Clean, dry and intact.
Plan
.
Surgery / Date: Left tibia IMN 09/27/24 ([facility])
Activity:
Out of bed.
PT/OT
Subjective
.
.:
Patient resting comfortably.
Vital Signs and Labs
.
Vital Signs and Labs:
Temp Pulse Resp BP Pulse Ox
98.2 F 72 18 119/65 94
09/29/24 03:52 09/29/24 03:52 09/29/24 03:52 09/29/24 03:52 09/29/24 03:52
[2024-09-29 08:21] LABS: Hematocrit 31.2 % (37.0-47.0); Hemoglobin 10.1 g/dL (12.0-16.0); Mean Corp Hgb Conc. 32.4 g/dL (33.0-37.0); Mean Corpuscular Hgb 33.7 pg (27.0-31.0); Mean Platelet Volume 11.8 fL (7.4-10.4); Platelet Count 160 10^3/uL (130-400); Red Cell Dist. Width 11.7 % (11.5-14.5); White Blood Cell Count 5.1 10^3/uL (4.8-10.8)
[2024-09-29 08:59] LABS: Blood Urea Nitrogen 13 mg/dl (7-17); Calcium 8.9 mg/dl (8.4-10.2); Carbon Dioxide 26 mmol/L (22-30); Chloride 101 mmol/L (98-107); Estimated Creatinine Clearance 82 ml/min; Glucose 87 mg/dl (70-99); Potassium 4.2 mmol/L (3.5-5.1); Sodium 136 mmol/L (135-145); eGFR > 60.00
[2024-09-29] MEDS: KEPPRA 1500 MG PO ×2 (09:09→20:07)
[2024-09-29] MEDS: NEURONTIN 600 MG PO ×3 (09:10→20:06)
[2024-09-29] MEDS: DIAMOX 250 MG PO (09:11)
[2024-09-29] MEDS: TYLENOL 650 MG PO ×4 (09:12→20:07)
[2024-09-29] MEDS: VITAMIN D3 (cholecalciferol) 25 MCG PO (09:13)
[2024-09-29] MEDS: ASPIRIN 325 MG PO (09:13)
[2024-09-29] MEDS: LAMICTAL 200 MG PO ×2 (09:13→20:07)
[2024-09-29] MEDS: SENOKOT PO ×2 (09:13→20:08)
[2024-09-29] MEDS: OSCAL 500 + D 500 MG PO ×2 (09:14→20:06)
[2024-09-29] MEDS: MYSOLINE 250 MG PO (09:15)
[2024-09-29] MEDS: VITAMIN B-12 1000 MCG PO (09:15)
[2024-09-29] MEDS: COLACE PO ×2 (09:30→20:07)
--- NOTE | 2024-09-29 13:38 | CM ---
Chart reviewed patient is for skilled placement at [facility] no Auth required however patient does need a 30 day exemption documented in progress notes and on [facility]. Physician made aware and family preservation caseworker faxed physician documentation on 30 day
exemption to Cortney at [facility].
Plan; Skilled placement at [facility] when stable, no Auth, 30 day exemption documentation faxed to [facility].
--- NOTE | 2024-09-29 14:14 | W.PN.HOSP.TC ---
Today's Communication/Plan
-
Monitor hemoglobin postop
Right leg imaging
Assessment / Plan
Assessment / Plan
Physical Exam
General: Well Developed
HEENT: NormoCephalic
Respiratory: Clear
Cardiac: S1/S2 and Regular Rhythm
GI: Non Tender
Musculoskeletal: No Clubbing
Skin: Warm and Other (Large amount of blood through to the MELY wrap. small draining poke hole as per ortho. Other surgical incisions intact without drainage. +Edema and ecchymosis. +general tenderness to palpation about the lower leg. calf is soft
and nontender. decreased ROM due to pain. pulses present distally.)
Neuro: Awake, Oriented and AO x 3
69-year-old female with w/ pmhx of Epilepsy, Hypertension, and Hyperlipidemia, now presents s/p fall with left acute mildly comminuted obliquely oriented extra-articular fracture of the distal tibial diaphysis and minimally displaced left proximal
fibula fracture.
PLAN:
#Acute left distal tibia shaft fracture
-POD#2 left tibia IMN - Dr. Arvizu
-monitor Hgb post op
-NWB LLE. Ambulate with assistive device
-PT/OT
-New 4x4, ABD, tova, and MELY wrap applied. Continue to monitor. Reinforce as needed
-pain management
- elevation and ice to help with swelling
-Aspirin 325mg daily x4 weeks postop for DVT prophylaxis
#Fall
-see plan above
-pt/ot
f/u right leg imaging as having pain there
#Hyponatremia
� Continue to monitor
� Mild
#Left proximal fibula fracture,
-this is amenable to nonoperative treatment.
#SARAH
� Resolved
� Continue IV fluids
#Seizures
� Continue lamotrigine, Keppra, permitting
#Hyperlipidemia
Continue statin
#Hypertension
� Hold lisinopril due to SARAH
#DVT ppx
-Aspirin 325
Anticipated Discharge: 24 - 48 hours
Subjective/Interval History
-
Date of Service: September 29, 2024
no acute events
Objective Data
-
Labs:
Laboratory Results
09/29/24
07:43
WBC 5.1
Hgb 10.1 L
Hct 31.2 L
Plt Count 160
Sodium 136
Potassium 4.2
Chloride 101
Carbon Dioxide 26
BUN 13
Creatinine 0.7
Glucose 87
Calcium 8.9
Vital Signs:
Vital Signs
Temp Pulse Resp BP Pulse Ox
98.9 F 76 18 125/64 95
09/29/24 11:48 09/29/24 11:48 09/29/24 11:48 09/29/24 11:48 09/29/24 11:48
I&O
09/28/24 09/29/24 09/30/24
06:59 06:59 06:59
Intake Total 1210 / 1210 900 / 900
Output Total 750 / 750 900 / 900
Balance 460 / 460 0 / 0
Review of Systems
-
History Source: Patient
All other systems: Not reviewed unless documented
Data Reviewed
-
Diagnostic Radiology: Report Reviewed by me
CT Scan: Report Reviewed by me
Labs: Labs Reviewed by me
--- NOTE | 2024-09-29 15:05 | PN.CDI ---
CDI
- -
CDI:
Physician Documentation Request
Admit Date: 09/26/24 10:41
Dear Doctor Bereket,
Please review the following and provide your response in the progress notes.
Clinical Indicators:
Height: 5'1'
Weight:230lbs
BMI:43.6
Other Clinical Notes:
Pt. admitted with fall, acute eft distal tibia shaft fracture.
If possible, please provide an associated diagnosis related to the abnormal BMI, such as:
BMI > or = to 40
Overweight
Obesity:
Due to excess calories
Drug induced
Due to other cause
Severe or morbid obesity:
With alveolar hypoventilation (Obesity hypoventilation syndrome)
Without alveolar hypoventilation
Overweight
Obesity
BMI is not significant
Other
Use of terms such as suspected, likely, concern for, or probable (associated with a specific diagnosis that is being evaluated, monitored, or treated as if it exists) are acceptable and can be coded in the inpatient setting, when documented at the
time of discharge.
Thank you,
Rowena Liz RN, BSN
CDI Specialist
Available via [employer]
Please use your independent medical judgment in providing your response.
[2024-09-29] MEDS: MYSOLINE 500 MG PO (20:06)
[2024-09-29] MEDS: CRESTOR 5 MG PO (20:11)
[2024-09-30] VITALS (7 sets, daily range): BP systolic 91–135; BP diastolic 56–70; PULSE 73; O2SAT 93
[2024-09-30] MEDS: TYLENOL PO (05:17)
[2024-09-30 07:42] LABS: Hematocrit 29.8 % (37.0-47.0); Hemoglobin 9.9 g/dL (12.0-16.0); Mean Corp Hgb Conc. 33.2 g/dL (33.0-37.0); Mean Corpuscular Hgb 34.6 pg (27.0-31.0); Mean Corpuscular Volume 104.2 fL (81.0-99.0); Mean Platelet Volume 11.5 fL (7.4-10.4); Platelet Count 161 10^3/uL (130-400); Red Blood Cell Count 2.86 10^6/uL (4.20-5.40); Red Cell Dist. Width 11.6 % (11.5-14.5); White Blood Cell Count 4.7 10^3/uL (4.8-10.8)
[2024-09-30 08:10] LABS: Blood Urea Nitrogen 10 mg/dl (7-17); Calcium 8.8 mg/dl (8.4-10.2); Carbon Dioxide 27 mmol/L (22-30); Chloride 102 mmol/L (98-107); Estimated Creatinine Clearance 82 ml/min; Glucose 90 mg/dl (70-99); Potassium 4.3 mmol/L (3.5-5.1); Sodium 135 mmol/L (135-145); eGFR > 60.00
[2024-09-30] MEDS: NEURONTIN 600 MG PO ×3 (08:55→20:55)
[2024-09-30] MEDS: KEPPRA 1500 MG PO ×2 (08:56→19:53)
[2024-09-30] MEDS: ASPIRIN 325 MG PO (08:57)
[2024-09-30] MEDS: LAMICTAL 200 MG PO ×2 (08:57→19:54)
[2024-09-30] MEDS: DIAMOX 250 MG PO (08:57)
[2024-09-30] MEDS: COLACE 100 MG PO ×2 (08:58→19:52)
[2024-09-30] MEDS: OSCAL 500 + D 500 MG PO ×2 (08:59→19:53)
[2024-09-30] MEDS: VITAMIN D3 (cholecalciferol) 25 MCG PO (09:00)
[2024-09-30] MEDS: MYSOLINE 250 MG PO (09:00)
[2024-09-30] MEDS: TYLENOL 650 MG PO ×4 (09:00→19:53)
[2024-09-30] MEDS: VITAMIN B-12 1000 MCG PO (09:02)
[2024-09-30] MEDS: SENOKOT PO (09:03)
--- NOTE | 2024-09-30 15:53 | W.PN.HOSP.TC ---
Addendum entered and electronically signed by Damon Cuba MD 09/30/24 16:38:
Overweight
Original Note:
Today's Communication/Plan
-
monitor hgb additional day
Assessment / Plan
Assessment / Plan
Physical Exam
General: Well Developed
HEENT: NormoCephalic
Respiratory: Clear
Cardiac: S1/S2 and Regular Rhythm
GI: Non Tender
Musculoskeletal: No Clubbing
Skin: Warm and Other (Large amount of blood through to the MELY wrap. small draining poke hole as per ortho. Other surgical incisions intact without drainage. +Edema and ecchymosis. +general tenderness to palpation about the lower leg. calf is soft
and nontender. decreased ROM due to pain. pulses present distally.)
Neuro: Awake, Oriented and AO x 3
69-year-old female with w/ pmhx of Epilepsy, Hypertension, and Hyperlipidemia, now presents s/p fall with left acute mildly comminuted obliquely oriented extra-articular fracture of the distal tibial diaphysis and minimally displaced left proximal
fibula fracture.
PLAN:
#Acute left distal tibia shaft fracture
-POD#3 left tibia IMN - Dr. Arvizu
--NWB LLE. Ambulate with assistive device
--PT/OT- prevent equinus contracture- consider CAM or night splint
--dressings C/D/I today
--Continue with pain management as needed
--Recommend elevation and ice to help with swelling
--Aspirin 325mg daily x4 weeks postop for DVT prophylaxis
-monitor hgb - still trickling down
#Acute Anemia
-posslbe blood loss anemia 2/2 to post op issues
-monitor hgb
#Fall
-see plan above
-pt/ot
f/u right leg imaging as having pain there
#Hyponatremia
� Continue to monitor
� Mild
#Left proximal fibula fracture,
-this is amenable to nonoperative treatment.
#SARAH
� Resolved
� Continue IV fluids
#Seizures
� Continue lamotrigine, Keppra, permitting
#Hyperlipidemia
Continue statin
#Hypertension
� Hold lisinopril due to SARAH
#DVT ppx
-Aspirin 325
Anticipated Discharge: Within 24 hours
Subjective/Interval History
-
Date of Service: September 30, 2024
No acute events
Objective Data
-
Labs:
Laboratory Results
09/30/24
07:08
WBC 4.7 L
Hgb 9.9 L
Hct 29.8 L
Plt Count 161
Sodium 135
Potassium 4.3
Chloride 102
Carbon Dioxide 27
BUN 10
Creatinine 0.7
Glucose 90
Calcium 8.8
Vital Signs:
Vital Signs
Temp Pulse Resp BP Pulse Ox
98.0 F 78 18 135/70 96
09/30/24 11:27 09/30/24 11:27 09/30/24 11:27 09/30/24 11:27 09/30/24 11:27
I&O
09/29/24 09/30/24 10/01/24
06:59 06:59 06:59
Intake Total 900 / 900 600 / 600
Output Total 900 / 900
Balance 0 / 0 600 / 600
Review of Systems
-
History Source: Patient
All other systems: Not reviewed unless documented
Data Reviewed
-
Diagnostic Radiology: Report Reviewed by me
CT Scan: Report Reviewed by me
Labs: Labs Reviewed by me
[2024-09-30] MEDS: SENOKOT 17.2 MG PO (19:53)
[2024-09-30] MEDS: MYSOLINE 500 MG PO (19:53)
[2024-09-30] MEDS: CRESTOR 5 MG PO (20:55)
[2024-10-01] MEDS: TYLENOL PO ×2 (00:55→05:10)
[2024-10-01 03:24] VITALS: BP 134/67
[2024-10-01 07:56] LABS: Blood Urea Nitrogen 11 mg/dl (7-17); Calcium 8.7 mg/dl (8.4-10.2); Carbon Dioxide 24 mmol/L (22-30); Chloride 104 mmol/L (98-107); Estimated Creatinine Clearance 96 ml/min; Glucose 87 mg/dl (70-99); Potassium 4.1 mmol/L (3.5-5.1); Sodium 137 mmol/L (135-145); eGFR > 60.00
[2024-10-01 08:04] LABS: Hematocrit 31.3 % (37.0-47.0); Hemoglobin 10.3 g/dL (12.0-16.0); Mean Corp Hgb Conc. 32.9 g/dL (33.0-37.0); Mean Corpuscular Hgb 34.3 pg (27.0-31.0); Mean Corpuscular Volume 104.3 fL (81.0-99.0); Mean Platelet Volume 10.8 fL (7.4-10.4); Platelet Count 225 10^3/uL (130-400); Red Cell Dist. Width 11.7 % (11.5-14.5); White Blood Cell Count 6.3 10^3/uL (4.8-10.8)
[2024-10-01 08:08] VITALS: BP 126/61
[2024-10-01] MEDS: ASPIRIN 325 MG PO (08:14)
[2024-10-01] MEDS: MYSOLINE 250 MG PO (08:14)
[2024-10-01] MEDS: VITAMIN D3 (cholecalciferol) 25 MCG PO (08:15)
[2024-10-01] MEDS: DIAMOX 250 MG PO (08:15)
[2024-10-01] MEDS: NEURONTIN 600 MG PO ×2 (08:15→15:49)
[2024-10-01] MEDS: KEPPRA 1500 MG PO (08:15)
[2024-10-01] MEDS: VITAMIN B-12 1000 MCG PO (08:15)
[2024-10-01] MEDS: OSCAL 500 + D 500 MG PO (08:15)
[2024-10-01] MEDS: LAMICTAL 200 MG PO (08:15)
[2024-10-01] MEDS: COLACE 100 MG PO (08:16)
[2024-10-01] MEDS: SENOKOT 17.2 MG PO (08:16)
[2024-10-01] MEDS: TYLENOL 650 MG PO ×3 (08:18→15:49)
[2024-10-01 10:00] VITALS: BP 134/67; PULSE 81; O2SAT 95
[2024-10-01 11:08] VITALS: BP 140/67
--- NOTE | 2024-10-01 12:08 | W.PN.HOSP.TC ---
Addendum entered and electronically signed by Damon Cuba MD 10/01/24 14:34:
[id number]
Original Note:
Today's Communication/Plan
-
Follow-up orthopedics, PCP outpatient
Follow-up CBC monitor hemoglobin, follow-up BMP monitoring sodium, creatinine outpatient
Aspirin 325 mg for 4 weeks postop, can resume 81 mg daily
-NWB LLE. Ambulate with assistive device
--PT/OT- prevent equinus contracture- consider CAM or night splint
--dressings C/D/I today
--Continue with pain management as needed
--Recommend elevation and ice to help with swelling
Assessment / Plan
Assessment / Plan
Physical Exam
General: Well Developed
HEENT: NormoCephalic
Respiratory: Clear
Cardiac: S1/S2 and Regular Rhythm
GI: Non Tender
Musculoskeletal: No Clubbing
Skin: Warm and Other (site of incision, wrapped with no evidence of bleeding)
Neuro: Awake, Oriented and AO x 3
69-year-old female with w/ pmhx of Epilepsy, Hypertension, and Hyperlipidemia, now presents s/p fall with left acute mildly comminuted obliquely oriented extra-articular fracture of the distal tibial diaphysis and minimally displaced left proximal
fibula fracture.
PLAN:
#Acute left distal tibia shaft fracture
-POD#4 left tibia IMN - Dr. Arvizu
--NWB LLE. Ambulate with assistive device
--PT/OT- prevent equinus contracture- consider CAM or night splint
--dressings C/D/I today
--Continue with pain management as needed
--Recommend elevation and ice to help with swelling
--Aspirin 325mg daily x4 weeks postop for DVT prophylaxis
-monitor hgb
#Acute Anemia
-possible blood loss anemia 2/2 to post op issues
-monitor hgb
-f/u hgb outpatient in 3 -5 days
#Fall
-see plan above
-pt/ot
f/u right leg imaging as having pain there: unremarkable and improved
#Hyponatremia
-resolved
� Continue to monitor
� Mild
-monitor outpatient
#Left proximal fibula fracture,
-this is amenable to nonoperative treatment.
#SARAH
� Resolved
� s/p IV fluids
#Seizures
� Continue lamotrigine, Keppra, Primidone
#Hyperlipidemia
Continue statin
#Hypertension
� can resume ACEI
#DVT ppx
-Aspirin 325
More than 30 minutes spent in discharge including
Final examination of the patient
Summarizing hospital stay
Instructions for continuing care to all relevant caregivers
Preparation of discharge records, prescriptions, and referral forms
Total time spent (35 in minutes):
Anticipated Discharge: Today
Subjective/Interval History
-
Date of Service: October 01, 2024
No acute events overnight
Objective Data
-
Labs:
Laboratory Results
10/01/24
07:10
WBC 6.3
Hgb 10.3 L
Hct 31.3 L
Plt Count 225 D
Sodium 137
Potassium 4.1
Chloride 104
Carbon Dioxide 24
BUN 11
Creatinine 0.6
Glucose 87
Calcium 8.7
Vital Signs:
Vital Signs
Temp Pulse Resp BP Pulse Ox
98.9 F 73 20 140/67 96
10/01/24 11:08 10/01/24 11:08 10/01/24 11:08 10/01/24 11:08 10/01/24 11:08
I&O
09/30/24 10/01/24 10/02/24
06:59 06:59 06:59
Intake Total 600 / 600 240 / 240
Balance 600 / 600 240 / 240
Review of Systems
-
History Source: Patient
All other systems: Not reviewed unless documented
Data Reviewed
-
Diagnostic Radiology: Report Reviewed by me
CT Scan: Report Reviewed by me
Labs: Labs Reviewed by me
--- NOTE | 2024-10-01 12:12 | W.DS.TRANS ---
DC Summary - [employer]ated [employer]
-
Discharge Instructions:
Discharge Diagnosis/Procedures
#Acute left distal tibia shaft fracture
Diet Low Cholesterol,Low Fat
Activity Do not bear weight L leg
Driving Restrictions Not until seen by your Dr
Bathing Restrictions After seen by Dr.
Blood Work CBC (checking hgb) and bmp(Scr) in 3-5 days with
pcp
Wound Care maintain dressing/splint/boot to LLE
Instructions: Surgery to fix a broken bone - Discharge instructions
Stand-Alone Forms:
Changes to Home Medications: Yes
Discharge Medications:
DC Medications w/original date entered in [employer]
acetazolamide 250 mg tablet 250 mg PO DAILY Neurological Condition 07/23/22
aspirin 81 mg chewable tablet 81 mg PO DAILY Blood clot prevention/tx 07/23/22
calcium 500 mg (as carbonate)-vitamin D3 10 mcg (400 unit) tablet (Calcium 500 With D) 1 tab PO BID Supplement 07/23/22
gabapentin 800 mg tablet 800 mg PO TID Neurological Condition 07/23/22
lamotrigine 200 mg tablet 200 mg PO BID Seizures 07/23/22
levetiracetam 750 mg tablet (Keppra) 1,500 mg PO BID Seizures 07/23/22
lisinopril 20 mg tablet 40 mg PO DAILY Blood pressure 07/23/22
primidone 250 mg tablet 250 mg PO DAILY Seizures 07/23/22
primidone 250 mg tablet 500 mg PO HS Seizures 07/23/22
acetaminophen 500 mg tablet 500 mg PO Q6HPRN PRN mild pain/fever 04/20/23
cholecalciferol (vitamin D3) 25 mcg (1,000 unit) tablet 25 mcg PO DAILY Supplement 04/20/23
guaifenesin 100 mg/5 mL oral liquid 200 mg PO Q4HPRN PRN cough 04/20/23
loperamide 2 mg capsule (Imodium A-D) 2 mg PO Q6HPRN PRN diarrhea 04/20/23
cyanocobalamin (vitamin B-12) 1,000 mcg tablet,extended release 1,000 mcg PO DAILY Supplement 09/26/24
lanolin-mineral oil lotion 1 applic topical BID dry skin 09/26/24
rosuvastatin 5 mg tablet 5 mg PO HS High Cholesterol 09/26/24
tramadol 50 mg tablet 50 mg PO Q8HPRN PRN moderate pain 09/26/24
aspirin 325 mg tablet 325 mg PO DAILY #0 tabs 10/01/24
Home Medication Changes
aspirin 325 mg tablet 325 mg PO DAILY #0 tabs 10/01/24
Pending Results: No
--- NOTE | 2024-10-01 12:19 | CM ---
Addendum entered by Carisa Virgen 10/01/24 13:09:
Patient transport scheduled for 5:00 p.m.
Original Note:
CM reviewed chart, reviewed with Hospitalist, patient for discharge today. CM spoke with Cortney at [facility], able to accept patient today. Patient seen bedside, aware of discharge, will require ambulance transport. IMM verbally reviewed,
agreeable to plan, provided with copy, form placed in chart. CM will continue to follow for all discharge planning needs.
Plan; [facility], ambulance transport
Slim
Report:[phone]
[2024-10-01] MEDS: PREVNAR 20 0.5 ML IM (13:18)
[2024-10-01 15:07] VITALS: BP 118/61
--- NOTE | 2024-10-01 15:38 | PTCARENOTE ---
report given to Ambreen. preparing for d/c
== END 2024-10-01 18:24 | DRG 493 ==
LOC: 4 WEST ACU 10:41
PROVIDERS: ADMITTING PHYSICIAN Internal Medicine; EMERGENCY PHYSICIAN Emergency Medicine; FAMILY PHYSICIAN Internal Medicine; OTHER PHYSICIAN Orthopaedic Surgery Hand Surgery
PROC: 0QSH06Z Reposition Left Tibia with Intramedullary Internal Fixation Device, Open Approach (ICD-10-PCS; 2024-09-27)
PROC: 0QPH04Z Removal of Internal Fixation Device from Left Tibia, Open Approach (ICD-10-PCS; 2024-09-27)
PROC: 3E0234Z Introduction of Serum, Toxoid and Vaccine into Muscle, Percutaneous Approach (ICD-10-PCS; 2024-10-01)
DX: S82.392A Other fracture of lower end of left tibia, initial encounter for closed fracture (principal); D62 Acute posthemorrhagic anemia; N17.9 Acute kidney failure, unspecified; E87.1 Hypo-osmolality and hyponatremia; Z68.41 Body mass index [BMI] 40.0-44.9, adult; S82.832A Other fracture of upper and lower end of left fibula, initial encounter for closed fracture; W01.0XXA Fall on same level from slipping, tripping and stumbling without subsequent striking against object, initial encounter; G40.909 Epilepsy, unspecified, not intractable, without status epilepticus; I10 Essential (primary) hypertension; E66.3 Overweight; E78.00 Pure hypercholesterolemia, unspecified; M17.12 Unilateral primary osteoarthritis, left knee; G89.29 Other chronic pain; Z87.891 Personal history of nicotine dependence; Z79.82 Long term (current) use of aspirin; Z23 Encounter for immunization
CPT/HCPCS: 29515; 73560; 73564; 73590; 73610; 73700; 76000; 80048; 80053; 85025; 85027; 86803; 86850; 86900; 86901; 87070; 90677; 93005; 96374; 96375; 97163; 97166; 97530; 97535; 99285; G0009

== ENCOUNTER → 2024-10-06 10:16 | Outpatient (REF) | payer MEDICARE, BC, SELFPAY ==
[2024-10-06 11:16] LABS: Mean Corp Hgb Conc. 31.3 g/dL (33.0-37.0); Mean Corpuscular Hgb 34.4 pg (27.0-31.0); Mean Platelet Volume 11.2 fL (7.4-10.4); Platelet Count 194 10^3/uL (130-400); Red Blood Cell Count 2.91 10^6/uL (4.20-5.40); Red Cell Dist. Width 12.8 % (11.5-14.5); White Blood Cell Count 6.9 10^3/uL (4.8-10.8)
[2024-10-06 11:31] LABS: ALT (SGPT) 34 U/L (0-35); AST (SGOT) 40 U/L (14-36); Albumin 3.3 g/dl (3.5-5.0); Alkaline Phosphatase 127 U/L (38-126); Blood Urea Nitrogen 10 mg/dl (7-17); Calcium 8.6 mg/dl (8.4-10.2); Carbon Dioxide 25 mmol/L (22-30); Chloride 101 mmol/L (98-107); Glucose 103 mg/dl (70-99); Potassium 4.5 mmol/L (3.5-5.1); Sodium 133 mmol/L (135-145); Total Bilirubin 0.2 mg/dl (0.2-1.3); Total Protein 6.5 g/dl (6.3-8.2); eGFR > 60.00
[2024-10-07 07:36] LABS: Keppra (Levetiracetam) 33 ug/mL (10-40)
== END ==
LOC: OLABWHC 10:16
PROVIDERS: ATTENDING PHYSICIAN Registered Nurse; FAMILY PHYSICIAN Family Medicine
DX: D64.9 Anemia, unspecified (principal); G40.909 Epilepsy, unspecified, not intractable, without status epilepticus; I10 Essential (primary) hypertension; E78.5 Hyperlipidemia, unspecified
CPT/HCPCS: 36415; 80053; 80175; 80177; 83735; 85027

== ENCOUNTER 2024-10-13 14:32 | Inpatient (IN) | payer MEDICARE, BC, SELFPAY ==
[2024-10-13] VITALS (16 sets, daily range): BP systolic 80–154; BP diastolic 65–130; BMI 43.0
[2024-10-13 12:48] LABS: % Basophils 0.6 % (0-2); % Eosinophils 0.8 % (0-6); % Immature Granulocytes 1.3 % (0-0.5); % Lymphocytes 12.5 % (20.5-51.1); % Monocytes 7.1 % (1.7-9.3); % Neutrophils 77.7 % (42.2-75.2); Absolute Basophils 0.1 10^3/uL (0-0.2); Absolute Eosinophils 0.1 10^3/uL (0-0.7); Absolute Immature Granulocytes 0.1 10^3/uL (0-0.05); Absolute Monocytes 0.6 10^3/uL (0.1-0.6); Hematocrit 36.4 % (37.0-47.0); Hemoglobin 11.7 g/dL (12.0-16.0); Mean Corp Hgb Conc. 32.1 g/dL (33.0-37.0); Mean Corpuscular Hgb 34.6 pg (27.0-31.0); Mean Corpuscular Volume 107.7 fL (81.0-99.0); Mean Platelet Volume 11.2 fL (7.4-10.4); Nucleated Red Blood Cells % 0 %; Platelet Count 401 10^3/uL (130-400); Red Blood Cell Count 3.38 10^6/uL (4.20-5.40); Red Cell Dist. Width 13.9 % (11.5-14.5); White Blood Cell Count 7.7 10^3/uL (4.8-10.8)
--- NOTE | 2024-10-13 12:53 | ED.GENMED ---
History of Present Illness
General
Chief Complaint: Breathing Problem
Source: patient
Exam Limitations: none
Time Seen by Provider: 10/13/24 12:39
Nursing documentation reviewed up to this point in time: agreed with
History of Present Illness
History of Present Illness:
69-year-old female with past medical history of seizures, hypertension, hyperlipidemia who presents to the emergency department in respiratory distress. Patient was admitted to this hospital 09/26/2024 until 10/01/2024 for acute left distal tibial
shaft fracture that was repaired with Dr. Arvizu. She was discharged to rehab where she has been since. Apparently last night at dinnertime she was eating some pork began choking on the pork; she was able to clear her airway with coughing but
overnight was having increasing shortness of breath and persistent hacking cough. Staff found her this morning to be hypoxic in the 70s and EMS was called to bring to the hospital. Per EMS on their arrival patient was hypotensive and severely
hypoxic requiring nonrebreather mask. She was transported to the emergency room. Here in the emergency room oxygenation has improved with supplemental oxygen. She says that she is having shortness of breath and has had persistent cough. She
denies any chest pain. She has swelling in her left leg status post surgery but no worse than usual. She denies any recent fevers, chills, URI symptoms. She is not typically on any supplemental oxygen. Review of medication list shows no blood
thinners.
Past History
Past History
ED Past Medical History: HTN, Hypercholesterolemia, Seizures and Psychiatric (Depression)
ED Past Surgical History: Orthopedic (Foot surgery Left)
Social History
Tobacco: Former smoker
Alcohol: None
Personal:
Living: [facility] ([facility])
Review of Systems
Review of Systems
All Other Systems: ROS reviewed and negative except as documented in HPI and ROS
Constitutional: Denies fever or chills
EENT: Denies sore throat or runny nose
Respiratory: Reports cough and trouble breathing
Cardiac: Denies chest pain or palpitations
ABD/GI: Denies abdominal pain, nausea or vomiting
: Denies flank pain
Musculoskeletal: Denies neck pain or back pain
Neurological: Denies dizzy or headache
Phy Exam
Physical Exam
Physical Exam:
General: Awake, alert, oriented x3; moderate respiratory distress
Head: Normocephalic, atraumatic
Eyes: Conjunctiva normal, EOMI
Throat: Airway intact, handling secretions
Neck: Trachea midline, no JVD
Lungs: Patient is hypoxic to 88% despite 6 L nasal cannula; transition to mid flow with improvement in oxygenation; she does have resting tachypnea with respiratory rate in the mid 20s; lungs clear to auscultation bilaterally, no wheezing, rales,
rhonchi although she is occasionally coughing throughout exam
Heart: Tachycardia with regular rhythm, no murmurs, gallops, or rubs
Abd: Soft, non distended, nontender
Neuro: No gross deficits
Skin: no rash
Extremities: Left lower extremity with postoperative dressing in place, +2 edema; trace edema in the right lower extremity; distal extremities are warm and well-perfused
Scores
Heart Failure Risk
Heart Failure Risk Score: Not Applicable
Heart Score for Chest Pain Patients
STEMI patient?: Not applicable
Withdrawal Assessment of Alcohol
Withdrawal Assessment Completed?: Not applicable
Course
Orders/Labs/Results
Orders:
Orders
10/13/24 12:24
Electrocardiogram (*1) Urgent
Reason for Study: Shortness of Breath
EKG- Treatment ONCE
10/13/24 12:32
Chest X-ray Portable [CR Chest Portable - 1 View] Urgent
Comment:
Reason For Exam: sob
Reason Study Needs to be Portable: Patient Unstable
10/13/24 12:43
Complete Blood Count/With Diff Urgent
Comprehensive Metabolic Panel Urgent
10/13/24 12:50
CT Chest PE Study Urgent
Comment:
Reason For Exam: hypoxia, SOB
10/13/24 13:36
Heparin 8,100 units IV NOW STA
Pharmacy Request to Place See Dose Instructions PO NOW STA
Discontinue all Active Warfarin orders?: Yes
Nursing to Place Non Medication Order As Directed (Cancelled)
Physician Order: PTT 6 hours after initial start of Heparin infusion
10/13/24 13:43
0.9% Sodium Chloride 1000 ml [Nss] 1,000 ml IV BOLUS
Heparin 8,100 units IV PRN PRN
10/13/24 13:44
Heparin 4,100 units IV PRN PRN
10/13/24 13:45
Heparin 32307 Units/250 ml 25,000 units in 250 ml IV PER PROTOCOL
Weight to be used for heparin protocol in kilograms (kg):: 101.7
Protocol:: DVT/PE
PTT Goal Range to be used:: PTT 73 to 111 seconds
Order type:: Initial
INITIAL Infusion Dose (UNITS/KG/hr) & then follow protocol:: 18 units/kg/hr
Infusion Dose in UNITS/hr & then follow protocol (UNITS/hr):: 1,800
INFUSION RATE in mL/hr & then follow protocol (mL/hr):: 18
For DVT/PE algorithm, re-bolus for low PTT?: Yes
PTT less than or equal to 64 seconds:: Re-bolus 80 units/kg (max 10,000units). Increase by 400 units/hr
(+ 4mL/hr)
PTT 64.1 to 72.9 seconds:: Re-bolus 40 units/kg (max 5,000 units). Increase by 200 units/hr
(+ 2mL/hr)
PTT 73 to 111 seconds:: Target Range. No change in rate.
PTT 111.1 to 130.9 seconds:: Decrease rate by 200 units/hr (- 2 mL/hr)
PTT 131 to 199.9 seconds:: HOLD for 1 hr. Then decrease by 300 units/hr (- 3mL/hr)
PTT greater than or equal to 200 seconds:: HOLD for 2 hrs & Notify Provider. Then decrease by 400 units/hr
(- 4mL/hr)
Lab follow-up:: Each change, PTT q6h until 2 consecutive are therapeutic. Then
PTT daily.
10/13/24 14:[address] See Dose Instructions IV DIRECTED
10/13/24 14:08
Admit/Transfer Patient As Directed
Co-Sign Provider:
Level of Care: Inpatient admission
Assign to:: IMU- Intermediate Care
Physician / Group: darian weston
Diagnosis: PE
Reason for Hospitalization: PE
Expected length of stay greater than two midnights?: Yes
ELOS- Estimated Length of Stay in days: 3
I certify the patient meets the requirements for IP care: Yes
10/13/24 14:09
Echo 2D MMode Color/Doppler Stat
Reason for Study: Saddle PE; assess RV size/function, PASP
Code Status As Directed
Resuscitation Status: Full Code
PRN Pain Medication Management As Directed
May give lesser potent ordered pain med per pt: Yes
preference::
Protocol:: Medication orders for pain may be administered in a
manner that supports deferring to patient preference
when the pt is:
- Requesting an ordered lesser potent pain medication.
Least to most potent pain medications are defined
as: acetaminophen < NSAID < tramadol < opioids
(morphine, oxycodone, hydromorphone).
- Requesting a lesser dose of the same medication IF
ORDERED.
- Requesting a less intrusive route of administration
if both routes are prescribed by the provider (PO <
IV).
10/13/24 14:10
US Periph Venous LOWER Ext Myron Urgent
Comment:
Reason For Exam: Rule out DVT given saddle PE seen on CTA chest
10/13/24 14:23
Add On- LAB Stat
Comments:: please do off ED blood
Tests Added?: PT/INR
10/13/24 14:27
COVID-19 Antigen Urgent
Source: Nasal Swab
NT-proBNP Urgent
PTT Urgent
Comment: Obtain baseline before beginning heparin infusion if not already collected
Prothrombin Time Urgent
Troponin I Urgent
Blood Culture Q30M
SOM Source: Blood/Venous
Specimen Description:
Blood Culture Q30M
SOM Source: Blood/Venous
Specimen Description:
Influenza A+B Rapid Molecular Urgent
SOM Source: Nasal Swab
Specimen Description:
Abnormal Lab Results
10/13/24 10/13/24
12:43 14:27
RBC 3.38 L 10^6/uL
(4.20-5.40)
Hgb 11.7 L g/dL
(12.0-16.0)
Hct 36.4 L %
(37.0-47.0)
MCV 107.7 H fL
(81.0-99.0)
MCH 34.6 H pg
(27.0-31.0)
MCHC 32.1 L g/dL
(33.0-37.0)
Plt Count 401 H D 10^3/uL
(130-400)
MPV 11.2 H fL
(7.4-10.4)
Abs Immat Gran (auto) 0.1 H 10^3/uL
(0-0.05)
Absolute Lymphs (auto) 1.0 L 10^3/uL
(1.2-3.4)
Immature Gran % 1.3 H %
(0-0.5)
Neutrophils % 77.7 H %
(42.2-75.2)
Lymphocytes % 12.5 L %
(20.5-51.1)
PT 15.5 H Sec
(11.4-14.6)
Carbon Dioxide 20 L mmol/L
(22-30)
Glucose 170 H mg/dl
(70-99)
AST 46 H U/L
(14-36)
ALT 39 H U/L
(0-35)
Alkaline Phosphatase 143 H U/L
(38-126)
Troponin I 0.234 H* ng/ml
10/13/24 12:43
10/13/24 12:43
Vital Signs
Initial and Last Documented VS:
Initial Vital Signs
Temp Pulse Resp BP Pulse Ox
36.4 C 102 21 101/65 92
10/13/24 12:18 10/13/24 12:18 10/13/24 12:18 10/13/24 12:18 10/13/24 12:18
Last Documented Vital Signs
Temp Pulse Resp BP Pulse Ox
36.4 C 88 17 120/83 100
10/13/24 16:27 10/13/24 16:27 10/13/24 16:27 10/13/24 16:27 10/13/24 16:27
MDM/Problems Addressed
Differential Diagnosis Includes:
Aspiration pneumonitis, pneumonia, bronchitis, pneumothorax, pulmonary embolism, CHF
MDM/Problems Addressed:
69-year-old female who is 2 weeks out from left leg surgery and is currently in rehab presents to the ER for evaluation of shortness of breath and hypoxia; seems to have started/been triggered off by aspiration event at dinner last night.
Hypotensive for EMS but normotensive here. She is tachycardic, tachypneic, markedly hypoxic requiring mid flow oxygen. Physical exam as above. Labs sent off including a CBC and a CMP, lactate and blood cultures, troponin and BNP. Will swab for
COVID and flu. Stat portable chest x-ray reviewed by me shows elevated right hemidiaphragm but no clear pneumonia, no pneumothorax, no pulmonary edema. Will send for a CTA to rule out PE with recent orthopedic surgery and immobilization. Continue
with supplemental oxygen. Monitor closely reassess after the above.
CT reviewed in real-time by me appears to show pulmonary embolism. PERT alert called. Patiently mildly hypotensive, tachycardic, tachypneic and is on mid flow oxygen to maintain saturations. I discussed directly with interventional radiology as
well as pulmonology�they will review case and discuss amongst themselves regarding thrombolysis/thrombectomy. In the meantime we will provide some IV fluids, start patient on heparin infusion. Plan for admission--case discussed with hospitalist.
Chronic conditions affecting care:
Obesity
*Radiology
Radiology exam reviewed: preliminary read by ED provider and radiology read reviewed
*Pulse Oximetry
Patient hypoxic: yes
*EKG
Interpreted by ED Provider?: Yes
Heart Rate: 103
Rate: tachycardiac
Rhythm: sinus and sinus tachycardia
[place]: normal axis
QRS Pattern: right bundle branch block (Incomplete)
Ischemia: non-specific ST changes
*Critical Care Note
Total Time (30-74mins, 75-104mins- exclusive of procedures): 34
comment:
Critical care statement: A total of 34 minutes of critical care time was provided for this patient. This includes management of unstable vital signs, evaluation of the patient at bedside, frequent reassessment, discussion with
consultants/hospitalist, and review of pertinent medical records. This time was separate from time utilized to perform any aforementioned documented procedures
Data Reviewed
Review of Other/Old Records Reveals: Labs, Records (Reviewed [facility] records) and Discharge Summary
Source: patient, records, [facility] and [facility]
Patient Management
Discussion with other providers: Hospitalist (Discussed with hospitalist) and Legislative Advocate (Discussed with pulmonology, discussed with interventional radiology)
Escalation/DeEscalation of care consider admission/obs:
Admission indicated
ED Attending Note
-
Portions of this chart may have been created with voice recognition software.� Occasional wrong word or��sound alike� substitutions may have occurred due to the inherent limitations of voice recognition software.
Discharge Plan
Departure
Patient Disposition: Admit
Date of Disposition: 10/13/24
Time of Disposition: 13:44
Admit to doctor: Jessika
Presentation/result/management discussed w/ accepting MD/DO: Hospitalist
Patient with high blood pressure during this ER visit?: No
Discharge Problem:
Acute hypoxemic respiratory failure
Interventions
Interventions:
*Risk Screen - Suicide Last Done: 10/13/24 12:18
*General Assessment Last Done: 10/13/24 12:18
*Neglect/Abuse Screening Last Done: 10/13/24 12:18
*ED COVID-19 Vaccine History Last Done: 10/13/24 12:18
ED- Cardiac Assessment Last Done: 10/13/24 12:18
ED- Pulmonary Assessment Last Done: 10/13/24 12:18
[2024-10-13 13:01] LABS: ALT (SGPT) 39 U/L (0-35); AST (SGOT) 46 U/L (14-36); Albumin 3.9 g/dl (3.5-5.0); Alkaline Phosphatase 143 U/L (38-126); Blood Urea Nitrogen 9 mg/dl (7-17); Calcium 9.3 mg/dl (8.4-10.2); Carbon Dioxide 20 mmol/L (22-30); Chloride 102 mmol/L (98-107); Estimated Creatinine Clearance 63 ml/min; Glucose 170 mg/dl (70-99); Potassium 4.4 mmol/L (3.5-5.1); Sodium 137 mmol/L (135-145); Total Bilirubin 0.3 mg/dl (0.2-1.3); Total Protein 7.5 g/dl (6.3-8.2); eGFR > 60.00
--- NOTE | 2024-10-13 13:49 | HPS.HSE ---
Family Physician
-
Family Physician: Rogerio Arce MD
Chief Complaint
-
sob
cough
History of Present Illness
69-year-old female with past medical history of seizures, hypertension, hyperlipidemia who presents to the emergency department with sob. Patient was admitted to this hospital 09/26/2024 until 10/01/2024 for acute left distal tibial shaft fracture
that was repaired with Dr. Arvizu. She was discharged to rehab where she has been since. Apparently last night at dinnertime she was eating some pork began choking on the pork; she was able to clear her airway with coughing but overnight was
having increasing shortness of breath and persistent hacking cough. today morning whe was extremely sob, and noted to have low oxygen level. denied fever, chills, chest pain. denied WELSH,dizzy or syncope. denied abdominal pain,n,v,d. denied dysuria or
hematuria.
patient noted hypoxic requiring 12l. initiated on heparin drip. admitting for further management.
Medical History
Past Medical History
Past Medical History: Reports Other
Additional Past Medical History:
Seizure
Tremor
Hyperlipidemia
Hypertension
Past Surgical History: Reports Other
Additional Past Surgical History:
Left ORIF
Social History
Tobacco: Former Smoker
Alcohol: None
Drug: None
Personal: Single
Living: Assisted Living
Family History
Family History: Not pertinent
Allergies / Home Medications
Allergies reflects when Allergies were last updated in [facility].
Home Medications with original date entered in [facility]
Allergy/Medication List:
Allergies
Allergy/AdvReac Type Severity Reaction Status Date / Time
No Known Allergies Allergy Verified 09/26/24 04:05
Home Medications
acetazolamide 250 mg tablet 250 mg PO DAILY Neurological Condition 07/23/22
aspirin 81 mg chewable tablet 81 mg PO DAILY Blood clot prevention/tx 07/23/22
calcium 500 mg (as carbonate)-vitamin D3 10 mcg (400 unit) tablet (Calcium 500 With D) 1 tab PO BID Supplement 07/23/22
gabapentin 800 mg tablet 800 mg PO TID Neurological Condition 07/23/22
lamotrigine 200 mg tablet 200 mg PO BID Seizures 07/23/22
levetiracetam 750 mg tablet (Keppra) 1,500 mg PO BID Seizures 07/23/22
lisinopril 20 mg tablet 40 mg PO DAILY Blood pressure 07/23/22
primidone 250 mg tablet 250 mg PO DAILY Seizures 07/23/22
primidone 250 mg tablet 500 mg PO HS Seizures 07/23/22
acetaminophen 500 mg tablet 500 mg PO Q6HPRN PRN mild pain/fever 04/20/23
cholecalciferol (vitamin D3) 25 mcg (1,000 unit) tablet 25 mcg PO DAILY Supplement 04/20/23
guaifenesin 100 mg/5 mL oral liquid 200 mg PO Q4HPRN PRN cough 04/20/23
loperamide 2 mg capsule (Imodium A-D) 2 mg PO Q6HPRN PRN diarrhea 04/20/23
cyanocobalamin (vitamin B-12) 1,000 mcg tablet,extended release 1,000 mcg PO DAILY Supplement 09/26/24
lanolin-mineral oil lotion 1 applic topical BID dry skin 09/26/24
rosuvastatin 5 mg tablet 5 mg PO HS High Cholesterol 09/26/24
tramadol 50 mg tablet 50 mg PO Q8HPRN PRN moderate pain 09/26/24
aspirin 325 mg tablet 325 mg PO DAILY #0 tabs 10/01/24
Review of Systems
-
Constitutional: Reports No Symptoms
EENT: Reports No Symptoms
Respiratory: Reports Cough and Trouble Breathing
Cardiac: Reports No Symptoms
Abdomen/GI: Reports No Symptoms
: Reports No Symptoms
Musculoskeletal: Reports Other (left LE edema)
Skin: Reports No Symptoms
Neurological: Reports No Symptoms
Endocrine: Reports No Symptoms
Hematologic/Lymphatic: Reports No Symptoms
Psych: Reports No Symptoms
Physical Exam
Vital Signs
Vital Signs
Temp Pulse Resp BP Pulse Ox
97.6 F 96 22 89/66 96
10/13/24 12:18 10/13/24 13:15 10/13/24 13:00 10/13/24 13:00 10/13/24 13:30
Physical Exam
General: Well Developed, Well Nourished and No Apparent Distress
HEENT: NormoCephalic, Moist mucous membranes and Atraumatic
Respiratory: Wheezes
Cardiac: S1/S2 and Regular Rhythm; No Murmur or Rub
GI: Soft, Non Tender, Non Distended and Normal Bowel Sounds; No Organomegaly
Rectal: Deferred by Provider
Musculoskeletal: No Clubbing and No Cyanosis
Skin: Rash and Other (left LE wrapped in mely. noted very swollen)
Neuro: AO x 3 and Nonfocal/grossly intact
Psych: Calm
Laboratory Results
-
10/13/24 12:43
10/13/24 12:43
Laboratory Results
Total Bilirubin 0.3 mg/dl (0.2-1.3) 10/13/24 12:43
AST 46 U/L (14-36) H 10/13/24 12:43
ALT 39 U/L (0-35) H 10/13/24 12:43
Alkaline Phosphatase 143 U/L (38-126) H 10/13/24 12:43
Data Reviewed
-
Diagnostic Radiology: Report Reviewed by me
Lab Data: Labs Reviewed by me
Impression/Plan
-
# Pulmonary embolism
-On heparin
-IR consulted for possible thrombolysis
-Pulmonology consulted
-Chest x-ray with no acute disease of the chest. Moderate elevation of direct hemidiaphragm from chest CT pending
-Chest pending
-COVID,Flu pending.
-duplex and ECHO pending.
# Anemia of chronic disease
-Hemoglobin stable at 11.7
-No active bleeding
-Continue to monitor
# Transaminitis
-AST 46, ALT 39, ALK 143
-Denied abdominal pain
Continue to monitor-
# Hypotension
-improving on fluids
#recent left distal tib shaft fracture
-s/p IMN
-left LE edema, wrapped in MELY
#Left proximal fibula fracture,
-this is amenable to nonoperative treatment.
##Seizures
� Continue lamotrigine, Keppra, Primidone
#Hyperlipidemia
Continue statin
#Hypertension
�hold lisinopril due to hypotension
#DVT ppx
-heparin
#CODe status
-full code
--- NOTE | 2024-10-13 14:02 | CON.PUL ---
Consultation
Consultation Request
Date/Time Consultation Requested: 10/13/2024 - 140
Date/Time Consultation Performed: 10/13/2024 - 1429
Requesting Provider: BERNADETTE Aden
Performing Provider: Dr. Smith
Reason for Consultation: PERT Alert
Medical History
-
Chief Complaint: Choked on dinner/cough
History of Present Illness:
69-year-old female former tobacco smoker with a past medical history of epilepsy, hypertension, hyperlipidemia and recent fall with left distal tibial fracture s/p intramedullary nail (performed 09/27/2024) who presents with choking on dinner with
SOB. She said that she choked on pork schnitzel this evening and then became short of breath with coughing afterwards. EMS arrived and patient was hypotensive with SBP in the 80s and 82% on room air. Patient brought to the ER on NRB with sats of
96%. Patient has been more short of breath the last several days that she attributes to being bedbound since her recent left lower extremity surgery on 09/27/2024. In the ER she was afebrile to 97.6 �F, tachycardic to 102, breathing at 21
breaths/min, BP 101/65 and saturating 92% on 6 L/min nasal cannula. Labs showed Hb 11.7, platelet count 401, serum bicarbonate level 20, troponin level 0.234, proBNP 7700 and COVID-19 antigen negative. Flu A/B swab also negative. Blood cultures
were collected. CXR showed moderate elevation of the right diaphragm with no acute pathology. CTA chest showed multiple bilateral PE with evidence of saddle embolus with moderate clot burden and evidence of RV strain. PERT alert called and
pulmonary consulted to evaluate the patient further.
When I saw the patient she was resting in bed in no acute distress. Heart rate 89, BP 108/90 and saturating 97% on 13 L/min via mid flow nasal cannula. She says she feels much better with the oxygen applied but is still short of breath when she
exerts herself. She also feels that her cough is also markedly improved. She currently denies chest pain, WELSH, abdominal pain, nausea, fevers or chills. Also denies any recent plane rides or long car trips. Denies a personal history of cancer,
denies history of DVT/PE and she is not currently on blood thinners besides aspirin.
PMHx: Epilepsy, hypertension, hyperlipidemia, left ankle fracture s/p ORIF
PSHx: Left tibial intramedullary nail (performed 09/27/2024), left ankle ORIF (04/01/2019)
Past Medical History
Past Medical History: Other (Above as per HPI)
Past Surgical History: Other (Above as per HPI)
Social History
Tobacco: Former Smoker (Former 95-[id number]-[id number] history, quit 1989)
Alcohol: None
Drug: None
Living: Usp
Family History
Family History: Cancer (Father) and Other (Mother: Dementia)
Allergies / Home Medications
Allergies
Allergy/AdvReac Type Severity Reaction Status Date / Time
No Known Allergies Allergy Verified 09/26/24 04:05
Home Medications
�Medication �Instructions �Recorded �Confirmed �Last Taken �Type
acetazolamide 250 mg tablet 250 mg PO DAILY Neurological 07/23/22 09/26/24 Unknown History
Condition
aspirin 81 mg chewable tablet 81 mg PO DAILY Blood clot 07/23/22 09/26/24 Unknown History
prevention/tx
calcium 500 mg (as 1 tab PO BID Supplement 07/23/22 09/26/24 Unknown History
carbonate)-vitamin D3 10 mcg (400
unit) tablet (Calcium 500 With D)
gabapentin 800 mg tablet 800 mg PO TID Neurological 07/23/22 09/26/24 Unknown History
Condition
lamotrigine 200 mg tablet 200 mg PO BID Seizures 07/23/22 09/26/24 Unknown History
levetiracetam 750 mg tablet 1,500 mg PO BID Seizures 07/23/22 09/26/24 Unknown History
(Keppra)
lisinopril 20 mg tablet 40 mg PO DAILY Blood pressure 07/23/22 09/26/24 Unknown History
primidone 250 mg tablet 250 mg PO DAILY Seizures 07/23/22 09/26/24 Unknown History
primidone 250 mg tablet 500 mg PO HS Seizures 07/23/22 09/26/24 Unknown History
acetaminophen 500 mg tablet 500 mg PO Q6HPRN PRN mild 04/20/23 09/26/24 Unknown History
pain/fever
cholecalciferol (vitamin D3) 25 25 mcg PO DAILY Supplement 04/20/23 09/26/24 Unknown History
mcg (1,000 unit) tablet
guaifenesin 100 mg/5 mL oral liquid 200 mg PO Q4HPRN PRN cough 04/20/23 09/26/24 Unknown History
loperamide 2 mg capsule (Imodium 2 mg PO Q6HPRN PRN diarrhea 04/20/23 09/26/24 Unknown History
A-D)
cyanocobalamin (vitamin B-12) 1,000 mcg PO DAILY Supplement 09/26/24 09/26/24 Unknown History
1,000 mcg tablet,extended release
lanolin-mineral oil lotion 1 applic topical BID dry skin 09/26/24 09/26/24 Unknown History
rosuvastatin 5 mg tablet 5 mg PO HS High Cholesterol 09/26/24 09/26/24 Unknown History
tramadol 50 mg tablet 50 mg PO Q8HPRN PRN moderate pain 09/26/24 09/26/24 Unknown History
aspirin 325 mg tablet 325 mg PO DAILY #0 tabs 10/01/24 Unknown Rx
Review of Systems
-
History Source: Patient
All other systems: Negative unless noted
Vitals / Labs / Diagnostic Testing
Vital Signs
Temp Pulse Resp BP Pulse Ox
97.6 F 93 23 107/69 96
10/13/24 12:18 10/13/24 13:47 10/13/24 13:47 10/13/24 13:47 10/13/24 13:53
Lab Data
10/13/24 12:43
10/13/24 12:43
Diagnostic Testing:
Physical Exam
-
HEENT: Normocephalic and Anicteric
Cardiovascular: S1/S2, Regular Rhythm and Peripheral Edema (+1 LE pitting edema b/l)
Respiratory: Wheeze (negative), Rales (Right base), Rhonchi (negative) and Non-Labored Respirations
GI: Soft, Non Distended, Non Tender and Normal Bowel Sounds
Neurology: AO x 3 and Tremors (negative)
Skin: Warm and Dry
General: Respiratory Distress (negative), Comfortable, Fever (negative) and Chills (negative)
Assessment
-
Assessment: 69-year-old female former tobacco smoker with a past medical history of epilepsy, hypertension, hyperlipidemia and recent fall with left distal tibial fracture s/p intramedullary nail (performed 09/27/2024) who presents with choking on
dinner with SOB. She said that she choked on pork schnitzel this evening and then became short of breath with coughing afterwards. EMS arrived and patient was hypotensive with SBP in the 80s and 82% on room air. Patient brought to the ER on NRB
with sats of 96%. Patient has been more short of breath the last several days that she attributes to being bedbound since her recent left lower extremity surgery on 09/27/2024. In the ER she was afebrile to 97.6 �F, tachycardic to 102, breathing
at 21 breaths/min, BP 101/65 and saturating 92% on 6 L/min nasal cannula. Labs showed Hb 11.7, platelet count 401, serum bicarbonate level 20, troponin level 0.234, proBNP 7700 and COVID-19 antigen negative. Flu A/B swab also negative. Blood
cultures were collected. CXR showed moderate elevation of the right diaphragm with no acute pathology. CTA chest showed multiple bilateral PE with evidence of saddle embolus with moderate clot burden and evidence of RV strain. PERT alert called
and pulmonary consulted to evaluate the patient further.
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
Impression:
#Submassive saddle PE with RV strain with high risk features
#Hypotension due to above
#Elevated troponin likely due to above
#Thrombocytosis likely reactive due to acute PE
#Metabolic acidosis with normal anion gap
#Transaminitis (mild)
#Chronic anemia
#Recent fall complicated by acute left distal tibia shaft fracture s/p removal of hardware and left tibial intramedullary nail (performed 09/27/2024)
# Former tobacco smoker (49-sbzp-bqlf history, quit 1989)
Plan:
- Stat echo to assess RV size and function --> preliminary read shows RV dilation and reduced RV systolic function
- Check LE duplex
- IVF
- Given she has a saddle thrombus with RV strain, and she was hypotensive initially in the ER and remains hypotensive and hypoxic on 13 L/min via midflow nasal cannula, would favor suction thrombectomy given her recent left lower extremity
orthopedic surgery; if thrombectomy is unsuccessful then would pursue catheter thrombosis. This was discussed with interventional radiology, Dr. Davis.
- IR consulted for suction thrombectomy +/- catheter-directed thrombolysis
- Start heparin gtt in meantime
- Trend aPTT q6hr and monitor H/H with serial CBC
- Transfuse if needed to keep Hb>7g/dL
- Trend platelet count
- Trend serum HCO3 level
- keep MAP>65
- Closely monitor BP and HR, and if HR suddenly rises >120 and is sustained >2 mins, or if SBP drops by >15-20% then notify hospitalist as this could mean that the pt is developing obstructive shock
- Maintain euglycemia with goal BG 140-180
- DVT ppx: Heparin gtt
Disposition will be determined depending if patient is stable after her interventional radiology procedure. If she gets catheter-directed thrombolysis then she will need to be transferred to ICU. If she gets suction thrombectomy and is stable then
telemetry vs IMU would be appropriate. Pulmonary service will continue to follow along regardless.
Data:
CTA Chest 10/13/2024: Multiple bilateral pulmonary emboli to all lobes with saddle embolus at the main pulmonary artery bifurcation. Moderate clot burden. Findings consistent with right heart strain.
Critical care statement: A total of 40 minutes of critical care time was provided for this patient today. This includes management of unstable vital signs, evaluation of the patient at bedside, reviewing the patient's pertinent medical records
including radiographs, microbiology, laboratory evaluations, and discussion with primary team, consultants, pharmacy, nutrition, physical therapy, case management, charge nurse, critical care nursing, and respiratory therapy.
--- NOTE | 2024-10-13 14:32 | W.PN.UPDATE ---
Addendum entered and electronically signed by Abad Rosen MD 10/13/24 14:49:
Addendum:
On heparin gtt
Hold full dose ASA
Hold Lisinopril
Original Note:
Update Note
Progress Note Update
This note serves as an addendum to the H&P by mica layer STEW
Estefany SUNITA
HPI
69F Former smoker HX seizures, hypertension, hyperlipidemia seen at ER
- evaluation for SoB
- HX admission 09/26/2024 until 10/01/2024 for acute left distal tibial shaft fracture s/p ORIF Dr. Arvizu.
- was discharged to rehab where she has been since.
- last night she was eating some pork began choking on the pork
- she was able to clear her airway with coughing but overnight was having increasing shortness of breath
- persistent hacking cough.
- today morning whe was extremely sob, and noted to have low oxygen level.
patient noted hypoxic requiring 12l. initiated on heparin drip. admitting for further management.
ROS:
denied fever, chills, chest pain.
denied WELSH,dizzy or syncope.
denied abdominal pain,n,v,d.
denied dysuria or hematuria.
PHX
Seizure
Tremor
Hyperlipidemia
Hypertension
Vital Signs
Temp Pulse Resp BP Pulse Ox
97.6 F 93 23 107/69 96
10/13/24 12:18 10/13/24 13:47 10/13/24 13:47 10/13/24 13:47 10/13/24 13:53
PE
General: No Apparent Distress
HEENT: Moist mucous membranes and Atraumatic
Respiratory: Wheezes
Cardiac: S1/S2 and Regular Rhythm; No Murmur or Rub
GI: Soft, Non Tender, Non Distended and Normal Bowel Sounds; No Organomegaly
Rectal: Deferred by Provider
Musculoskeletal: No Clubbing and No Cyanosis
Skin: Rash and left LE wrapped in mely. noted very swollen)
Neuro: AO x 3 and Nonfocal/grossly intact
Psych: Calm
Abnormal Lab Results
10/13/24
12:43
RBC 3.38 L
Hgb 11.7 L
Hct 36.4 L
MCV 107.7 H
MCH 34.6 H
MCHC 32.1 L
Plt Count 401 H
MPV 11.2 H
Abs Immat Gran (auto) 0.1 H
Absolute Lymphs (auto) 1.0 L
Immature Gran % 1.3 H
Neutrophils % 77.7 H
Lymphocytes % 12.5 L
Carbon Dioxide 20 L
Glucose 170 H
AST 46 H
ALT 39 H
Alkaline Phosphatase 143 H
CXR: no acute disease of the chest. Moderate elevation of direct hemidiaphragm from
Chest CT pending
ASSESSMENT & PLAN
Pending Rx reconciliation
Acute PE PERT alert
- Agree with heparin gtt
- CT Chest pending
- COVID,Flu pending.
- duplex and ECHO pending.
-IR consulted for possible thrombolysis
-Pul consulted
Anemia of chronic disease
-Hemoglobin stable at 11.7
-No active bleeding
-Continue to monitor
Transaminitis; AST 46, ALT 39, ALK 143
-Denied abdominal pain
- Continue to monitor LFTs
Hypotension
- improving on fluids
Recent left distal tib shaft fracture
-s/p IMN
-left LE edema, wrapped in MELY
- Left proximal fibula fracture,
-this is amenable to nonoperative treatment.
HX Seizures
� Continue lamotrigine, Keppra, Primidone
Hyperlipidemia
- Continue statin
Benign Hypertension
� can resume ACEI
DVT Px: Full dose ASA
Full code
IMU
[2024-10-13] MEDS: HEPARIN 8100 UNITS IV (14:34)
[2024-10-13] MEDS: HEPARIN 25000 UNITS/250 ML IV ×2 (14:35→20:46)
[2024-10-13] MEDS: NSS 1000 IV ×2 (14:44→20:24)
[2024-10-13 15:00] LABS: COVID-19 Antigen Negative (Negative)
[2024-10-13 15:10] LABS: APTT 30.5 Sec (23.4-35.0)
[2024-10-13 15:15] LABS: NT-proBNP 7700 pg/ml; Troponin I 0.234 ng/ml
[2024-10-13 15:34] LABS: INR 1.2; PT 15.5 Sec (11.4-14.6)
--- NOTE | 2024-10-13 18:24 | W.PN.UPDATE ---
Update Note
Progress Note Update
Massive saddle PE with hypotension, and elevated troponin and bnp. Recent LE surgery 2 weeks ago.
PE embolectomy performed, yielding a large amount of embolus. The left side and the saddle PE were nearly completely removed. No tpa given.
Left main PA pressure 56/27, mean 37 mm Hg.
OK to resume heparin approx 2 hours after sheath removal, around 8:30 pm. Bedrest for 2 hours.
[2024-10-13] MEDS: LAMICTAL 200 MG PO (20:33)
[2024-10-13] MEDS: MYSOLINE 500 MG PO (20:34)
[2024-10-13] MEDS: NEURONTIN 800 MG PO (20:35)
[2024-10-13] MEDS: LIPITOR 10 MG PO (20:37)
[2024-10-13] MEDS: KEPPRA 1500 MG PO (20:37)
[2024-10-13] MEDS: TESSALON PERLES 100 MG PO (20:37)
--- NOTE | 2024-10-13 21:00 | PTCARENOTE ---
Received verbal report from SYBIL Golden. Pt arrived from ED via stretcher. Pt aaox3. 95% on 12L MFNC. NSR on monitor. Pt's admission and assessment completed. IVF infusing. Heparin gtt infusing at 18 mL/hr (see MAR). Neurovascular checks ongoing per
protocol (see worklist). Pt resting in bed with call christensen in reach.
[2024-10-13 21:11] LABS: APTT 95.9 Sec (23.4-35.0)
--- NOTE | 2024-10-13 22:00 | PTCARENOTE ---
received verbal and written report from SYBIL Golden. Pt arrived from ED via stretcher. Pt aaox3. 95% on 12L MFNC. NSR on monitor. Pt admission and assessment completed. IVF infusing. Heparin gtt infusing at 18 mL/hr (see MAR). Neurovascular checks
ongoing per protocol (see worklist). Pt resting in bed with call christensen in reach.
[2024-10-14] VITALS (12 sets, daily range): BP systolic 96–132; BP diastolic 55–89; PULSE 83; O2SAT 96; BMI 43.1
[2024-10-14 04:01] LABS: Hematocrit 32.8 % (37.0-47.0); Hemoglobin 10.4 g/dL (12.0-16.0); Mean Corp Hgb Conc. 31.7 g/dL (33.0-37.0); Mean Corpuscular Hgb 34.2 pg (27.0-31.0); Mean Corpuscular Volume 107.9 fL (81.0-99.0); Mean Platelet Volume 11.7 fL (7.4-10.4); Platelet Count 308 10^3/uL (130-400); Red Blood Cell Count 3.04 10^6/uL (4.20-5.40); Red Cell Dist. Width 13.7 % (11.5-14.5); White Blood Cell Count 6.2 10^3/uL (4.8-10.8)
[2024-10-14 04:22] LABS: APTT > 200 Sec (23.4-35.0)
--- NOTE | 2024-10-14 04:30 | PTCARENOTE ---
Pt on Heparin gtt. PTT >200. FABI Lucio notified and heparin gtt put on hold.
[2024-10-14 05:11] LABS: AST (SGOT) 39 U/L (14-36); Albumin 3.3 g/dl (3.5-5.0); Alkaline Phosphatase 144 U/L (38-126); Blood Urea Nitrogen 8 mg/dl (7-17); Calcium 8.6 mg/dl (8.4-10.2); Carbon Dioxide 19 mmol/L (22-30); Chloride 110 mmol/L (98-107); Estimated Creatinine Clearance 95 ml/min; Glucose 88 mg/dl (70-99); Potassium 4.3 mmol/L (3.5-5.1); Sodium 141 mmol/L (135-145); Total Bilirubin 0.5 mg/dl (0.2-1.3); Total Protein 6.8 g/dl (6.3-8.2); eGFR > 60.00
[2024-10-14 05:23] LABS: ALT (SGPT) 34 U/L (0-35)
[2024-10-14] MEDS: NSS 1000 IV ×2 (06:30→17:49)
--- NOTE | 2024-10-14 07:24 | W.PN.HOSP.TC ---
Today's Communication/Plan
-
Continue Heparin Drip PE/DVT/VTE protocol
Assessment / Plan
Assessment / Plan
Physical Exam
General: Well Developed, Well Nourished and No Apparent Distress
HEENT: NormoCephalic, Moist mucous membranes and Atraumatic
Respiratory: Wheezes
Cardiac: S1/S2 and Regular Rhythm
GI: Soft, Non Tender, Non Distended and Normal Bowel Sounds
Musculoskeletal: No Cyanosis
Skin: Rash and Other (left LE wrapped in mely. noted very swollen)
Neuro: AAO x 3 and Nonfocal/grossly intact
Psych: Calm
Assessment/Plan
#Massive saddle PE with RV strain with high risk features status post IR thrombectomy 10/13/2024
-PERT alert was called in the ED
-Continue Heparin Drip through tomorrow going into Wednesday, to be switched to oral anticoagulation on October 16, 2024
-IR consulted for possible thrombolysis
-Pulmonology consulted
-Chest x-ray with no acute disease of the chest. Moderate elevation of direct hemidiaphragm from chest CT pending
-COVID and Flu both negative
-Duplex LE ultrasound with no DVT and ECHO with severely dilated right atrium and severely enlarged right ventricular size.
# Anemia of chronic disease
-Hemoglobin stable
-No active bleeding
-Continue to monitor
# Transaminitis
-AST 46, ALT 39, ALK 143
-Denied abdominal pain
-Continue to monitor
# Hypotension secondary to the PE above
-improved with PE treatment
#recent left distal tib shaft fracture
-s/p IMN
-left LE edema, wrapped in MELY
#Left proximal fibula fracture,
-On admission, this was noted to be amenable to nonoperative treatment.
#History of Seizures
� Continue lamotrigine, Keppra, Primidone
#Hyperlipidemia
Continue statin
#Hypertension
�hold lisinopril due to hypotension
#DVT ppx
-heparin
#CODe status
-full code
Anticipated Discharge: > 48 hours
Subjective/Interval History
-
Date of Service: October 14, 2024
Patient was seen and examined. She reported feeling okay, denied any new symptoms, denied chest pain or SOB.
Objective Data
-
Labs:
Laboratory Results
10/13/24 10/14/24 10/14/24
20:52 03:35 12:30
WBC 6.2
Hgb 10.4 L
Hct 32.8 L
Plt Count 308 D
APTT 95.9 H > 200 H* Pending
Sodium 141
Potassium 4.3
Chloride 110 H
Carbon Dioxide 19 L
BUN 8
Creatinine 0.6
Glucose 88
Calcium 8.6
Total Bilirubin 0.5
AST 39 H
ALT 34
Alkaline Phosphatase 144 H
Vital Signs:
Vital Signs
Temp Pulse Resp BP Pulse Ox
97.5 F 82 20 106/57 97
10/14/24 03:40 10/14/24 06:00 10/14/24 06:00 10/14/24 06:00 10/14/24 00:38
I&O
10/13/24 10/14/24 10/15/24
06:59 06:59 06:59
Intake Total 1240 / 1240
Balance 1240 / 1240
--- NOTE | 2024-10-14 10:34 | CM ---
Initial assessment completed at bedside
Primary Contact is Bhargavi Ramos, Friend (and Home Health [facility]) # [phone]
Pharmacy verified: [facility] @ [address] [place] [address]
Lives alone @ [facility] (Assisted [facility])
PLOF: needs assistance with ADLs; ambulates with a Rolling Walker
Was going to PT @ [facility] after recent hospital discharge
DME: [facility], [facility]
NO SNF history
Friend, Bhargavi, will transport home
Reported she has a history of Epilepsy
Plan: To be determined pending hospital course; PT/OT pending
[2024-10-14] MEDS: DIAMOX 250 MG PO (11:14)
[2024-10-14] MEDS: NEURONTIN 800 MG PO ×3 (11:14→21:50)
[2024-10-14] MEDS: KEPPRA 1500 MG PO ×2 (11:14→21:50)
[2024-10-14] MEDS: LAMICTAL 200 MG PO ×2 (11:15→21:50)
[2024-10-14] MEDS: MYSOLINE 250 MG PO (11:16)
[2024-10-14] MEDS: TESSALON PERLES 100 MG PO ×3 (11:17→21:52)
[2024-10-14] MEDS: HEPARIN 25000 UNITS/250 ML IV (12:56)
[2024-10-14 14:00] LABS: APTT 140.7 Sec (23.4-35.0)
--- NOTE | 2024-10-14 14:14 | W.PN.PUL3 ---
Today's Communication / Plan
-
Wean off oxygen
Continue heparin drip for additional 24 to 48 hours, transition to oral anticoagulants on Wednesday
Incentive spirometry
Increase activity as able
Will follow
Assessment
-
Assessment: 69-year-old female former tobacco smoker with a past medical history of epilepsy, hypertension, hyperlipidemia and recent fall with left distal tibial fracture s/p intramedullary nail (performed 09/27/2024) who presents with choking on
dinner with SOB. She said that she choked on pork schnitzel this evening and then became short of breath with coughing afterwards. EMS arrived and patient was hypotensive with SBP in the 80s and 82% on room air. Patient brought to the ER on NRB
with sats of 96%. Patient has been more short of breath the last several days that she attributes to being bedbound since her recent left lower extremity surgery on 09/27/2024. In the ER she was afebrile to 97.6 �F, tachycardic to 102, breathing
at 21 breaths/min, BP 101/65 and saturating 92% on 6 L/min nasal cannula. Labs showed Hb 11.7, platelet count 401, serum bicarbonate level 20, troponin level 0.234, proBNP 7700 and COVID-19 antigen negative. Flu A/B swab also negative. Blood
cultures were collected. CXR showed moderate elevation of the right diaphragm with no acute pathology. CTA chest showed multiple bilateral PE with evidence of saddle embolus with moderate clot burden and evidence of RV strain. PERT alert called
and pulmonary consulted to evaluate the patient further.
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
Impression:
# Massive saddle PE with RV strain with high risk features
Echocardiogram with RV dysfunction
Lower extremity Dopplers and
#Hypotension due to above
#Elevated troponin likely due to above
#Thrombocytosis likely reactive due to acute PE
#Metabolic acidosis with normal anion gap
#Transaminitis (mild)
#Chronic anemia
#Recent fall complicated by acute left distal tibia shaft fracture s/p removal of hardware and left tibial intramedullary nail (performed 09/27/2024)
# Former tobacco smoker (42-fkci-izsh history, quit 1989)
Plan:
-
Status post thrombectomy 10/13/2024
Lower extremity Dopplers negative
Patient tolerated procedure well
Currently on 4 L nasal cannula
Not tachycardic
Hemodynamically stable not requiring vasopressors.
-
Continue heparin drip for total of 48 hours and then if stable transition to oral anticoagulants. Transition to oral anticoagulation Wednesday per
Increase activity as able
Incentive respiratory
-
She is limited due to recent tibial fracture status post surgery 09/27/2024. Monitor for bleeding.
Currently dressing appears intact.
-
Follow hemoglobin transfuse for hemoglobin less than 7
No evidence for bleeding
- Trend platelet count
- Trend serum HCO3 level
-Currently hemodynamically stable.
Never required vasopressor
Status post IV fluid
- Maintain euglycemia with goal BG 140-180
- DVT ppx: Heparin gtt
Keep IMU level of care
Pulmonary will follow
Data:
CTA Chest 10/13/2024: Multiple bilateral pulmonary emboli to all lobes with saddle embolus at the main pulmonary artery bifurcation. Moderate clot burden. Findings consistent with right heart strain.
Subjective Data
-
Date of Service:
Date of Service: October 14, 2024
Chief Complaint: Pulmonary Follow Up (Acute massive pulmonary embolism status post embolectomy 10/13/2024)
Subjective:
Patient sitting out of bed on a chair
Comfortable
Denies shortness of breath at rest
On 4 L nasal cannula
Complaining of coughing without hemoptysis
Review of Systems
HEENT: Epistaxis (n)
Cardiopulmonary: Dyspnea ( none at rest) and Hemoptysis (n)
Genitourinary: Hematuria (n)
Objective Data
Data Reviewed
Vital Signs / I&O / Oxygen:
Vital Signs
Temp Pulse Resp BP Pulse Ox
97.8 F 81 20 106/63 96
10/14/24 07:05 10/14/24 12:00 10/14/24 12:00 10/14/24 10:00 10/14/24 12:00
Intake and Output
10/13/24 10/14/24 10/15/24
06:59 06:59 06:59
Intake Total 1240 / 1240
Balance 1240 / 1240
SaO2 96
Nasal Cannula flow liters per 4
minute
Physical Exam
General: Comfortable
HEENT: Normocephalic
Cardiovascular: S1-S2
Respiratory: Clear and Non-Labored Respirations
GI: Distended (Obese)
Neurology: Awake, Alert and AO x 3
Skin: Other (Left leg is dressed)
Labs/Micro/Reports
Lab Data
10/14/24 03:35
10/14/24 03:35
Laboratory Results
10/13/24 10/13/24 10/14/24
14:27 20:52 03:35
PT 15.5 H
INR 1.2
APTT 30.5 95.9 H > 200 H*
10/14/24
13:32
PT
INR
APTT 140.7 H
Microbiology
10/13/24 14:27 Nasal Swab Influenza Types A & B (SERGIO) - Final
Negative for Influenza A & B, NAAT
Negative results must be combined with clinical observations
and patient history.
Nucleic Acid Amplification test (NAAT)performed on the
[employer] platform.
--- NOTE | 2024-10-14 18:59 | PTCARENOTE ---
day shift note. see nursing flowsheet. pt weaned down to 4 liters o2. pt states shortnss of breath is much better than yesterday. heparin drip titrated per protocol. pt was oob in chair with max assist for several hours, tolerated well.sinus rythym
on monitor.
--- NOTE | 2024-10-14 19:30 | PTCARENOTE ---
Received pt from day shift RN. Pt aaox3. 98% on 3L NC. Pt NSR on monitor, VSS. PW in place draining paty urine. Heparin gtt infusing at 11 mL/hr (see worklist). NSS infusing @ 100 mL/hr. pt has no complaints at this time and able to make needs
known. Pt resting in bed with call christensen in reach.
[2024-10-14] MEDS: LIPITOR 10 MG PO (21:50)
[2024-10-14] MEDS: MYSOLINE 500 MG PO (21:50)
[2024-10-15] VITALS (12 sets, daily range): BP systolic 96–155; BP diastolic 59–122; BMI 43.9
[2024-10-15] MEDS: NSS 1000 IV (04:06)
[2024-10-15 05:59] LABS: Hematocrit 29.1 % (37.0-47.0); Hemoglobin 9.4 g/dL (12.0-16.0); Mean Corp Hgb Conc. 32.3 g/dL (33.0-37.0); Mean Corpuscular Hgb 35.2 pg (27.0-31.0); Mean Platelet Volume 11.6 fL (7.4-10.4); Platelet Count 281 10^3/uL (130-400); Red Blood Cell Count 2.67 10^6/uL (4.20-5.40); Red Cell Dist. Width 14.2 % (11.5-14.5); White Blood Cell Count 5.1 10^3/uL (4.8-10.8)
[2024-10-15 06:13] LABS: APTT 86.7 Sec (23.4-35.0)
[2024-10-15 06:21] LABS: ALT (SGPT) 27 U/L (0-35); AST (SGOT) 31 U/L (14-36); Albumin 3.1 g/dl (3.5-5.0); Alkaline Phosphatase 135 U/L (38-126); Blood Urea Nitrogen 5 mg/dl (7-17); Calcium 8.3 mg/dl (8.4-10.2); Carbon Dioxide 22 mmol/L (22-30); Chloride 107 mmol/L (98-107); Estimated Creatinine Clearance 96 ml/min; Glucose 86 mg/dl (70-99); Potassium 4.3 mmol/L (3.5-5.1); Sodium 139 mmol/L (135-145); Total Bilirubin 0.4 mg/dl (0.2-1.3); Total Protein 6.3 g/dl (6.3-8.2); eGFR > 60.00
[2024-10-15] MEDS: LAMICTAL 200 MG PO ×2 (08:38→20:08)
[2024-10-15] MEDS: DIAMOX 250 MG PO (08:38)
[2024-10-15] MEDS: KEPPRA 1500 MG PO ×2 (08:38→20:08)
[2024-10-15] MEDS: TESSALON PERLES 100 MG PO ×3 (08:39→20:08)
[2024-10-15] MEDS: MYSOLINE 250 MG PO (08:39)
[2024-10-15] MEDS: NEURONTIN 800 MG PO ×3 (08:39→20:09)
--- NOTE | 2024-10-15 11:54 | W.PN.PUL3 ---
Today's Communication / Plan
-
Continue heparin drip
Transition to oral anticoagulants on Wednesday
Will need repeat echocardiogram in 3 months
Will follow
Assessment
-
Assessment: 69-year-old female former tobacco smoker with a past medical history of epilepsy, hypertension, hyperlipidemia and recent fall with left distal tibial fracture s/p intramedullary nail (performed 09/27/2024) who presents with choking on
dinner with SOB. She said that she choked on pork schnitzel this evening and then became short of breath with coughing afterwards. EMS arrived and patient was hypotensive with SBP in the 80s and 82% on room air. Patient brought to the ER on NRB
with sats of 96%. Patient has been more short of breath the last several days that she attributes to being bedbound since her recent left lower extremity surgery on 09/27/2024. In the ER she was afebrile to 97.6 �F, tachycardic to 102, breathing
at 21 breaths/min, BP 101/65 and saturating 92% on 6 L/min nasal cannula. Labs showed Hb 11.7, platelet count 401, serum bicarbonate level 20, troponin level 0.234, proBNP 7700 and COVID-19 antigen negative. Flu A/B swab also negative. Blood
cultures were collected. CXR showed moderate elevation of the right diaphragm with no acute pathology. CTA chest showed multiple bilateral PE with evidence of saddle embolus with moderate clot burden and evidence of RV strain. PERT alert called
and pulmonary consulted to evaluate the patient further.
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
Impression:
# Massive saddle PE with RV strain with high risk features
Echocardiogram with RV dysfunction
Lower extremity Dopplers and
#Hypotension due to above
#Elevated troponin likely due to above
#Thrombocytosis likely reactive due to acute PE
#Metabolic acidosis with normal anion gap
#Transaminitis (mild)
#Chronic anemia
#Recent fall complicated by acute left distal tibia shaft fracture s/p removal of hardware and left tibial intramedullary nail (performed 09/27/2024)
# Former tobacco smoker (43-[id number] history, quit 1989)
Plan:
-
Status post thrombectomy 10/13/2024
Lower extremity Dopplers negative
Patient tolerated procedure well
Currently on 4 L nasal cannula
Not tachycardic
Hemodynamically stable not requiring vasopressors.
-
Continue heparin drip for total of 48 hours and then if stable transition to oral anticoagulants. Transition to oral anticoagulation Wednesday if patient is stable.
Increase activity as able
Incentive respiratory
-
She is limited due to recent tibial fracture status post surgery 09/27/2024. Monitor for bleeding.
Currently dressing appears intact.
-
Follow hemoglobin transfuse for hemoglobin less than 7
No evidence for bleeding
- Trend platelet count-Normal.
- Trend serum HCO3 level-normalized.
-Currently hemodynamically stable.
Never required vasopressor
IV fluids discontinued
- Maintain euglycemia with goal BG 140-180
- DVT ppx: Heparin gtt
Keep IMU level of care
Pulmonary will follow
Outpatient pulmonary follow-up after discharge. Information will be left in the chart.
Data:
CTA Chest 10/13/2024: Multiple bilateral pulmonary emboli to all lobes with saddle embolus at the main pulmonary artery bifurcation. Moderate clot burden. Findings consistent with right heart strain.
Subjective Data
-
Date of Service:
Date of Service: October 15, 2024
Chief Complaint: Pulmonary Follow Up (Acute massive pulmonary embolism status post embolectomy 10/13/2024)
Subjective:
Denies any new complaints
Tolerating heparin
Denies shortness of breath at rest
Review of Systems
Cardiopulmonary: Dyspnea (none at rest)
GI: Abdominal Pain (n) and Nausea (n)
Objective Data
Data Reviewed
Vital Signs / I&O / Oxygen:
Vital Signs
Temp Pulse Resp BP Pulse Ox
97.5 F 80 14 96/59 99
10/15/24 11:38 10/15/24 08:38 10/15/24 04:00 10/15/24 08:38 10/15/24 10:01
Intake and Output
10/14/24 10/15/24 10/16/24
06:59 06:59 06:59
Intake Total 1240 / 1240
Output Total 100 / 100
Balance 1240 / 1240 -100 / -100
SaO2 99
Nasal Cannula flow liters per 3
minute
Physical Exam
General: Comfortable
HEENT: Normocephalic
Cardiovascular: S1-S2
Respiratory: Clear and Non-Labored Respirations
GI: Distended (Obese)
Neurology: Awake, Alert and AO x 3
Skin: Other (Left leg is dressed)
Labs/Micro/Reports
Lab Data
10/15/24 05:42
10/15/24 05:42
Laboratory Results
10/14/24 10/14/24 10/14/24
13:32 21:47 22:11
APTT 140.7 H 118.0 H Cancelled
10/15/24
05:42
APTT 86.7 H
Microbiology
10/14/24 03:26 Nose MRSA Screen - Final
No Methicillin Resistant Staphylococcus aureus isolated.
10/13/24 14:27 Blood/Venous Blood Culture - Preliminary
No Growth in 24 hours- Final report to follow
10/13/24 14:27 Blood/Venous Blood Culture - Preliminary
No Growth in 24 hours- Final report to follow
10/13/24 14:27 Nasal Swab Influenza Types A & B (SERGIO) - Final
Negative for Influenza A & B, NAAT
Negative results must be combined with clinical observations
and patient history.
Nucleic Acid Amplification test (NAAT)performed on the
[employer] platform.
[2024-10-15 13:36] LABS: APTT 61.6 Sec (23.4-35.0)
[2024-10-15] MEDS: HEPARIN 8100 UNITS IV (14:07)
--- NOTE | 2024-10-15 15:40 | W.PN.HOSP.TC ---
Today's Communication/Plan
-
Continue Heparin Drip DVT/PE/VTE protocol with ronal
If patient remains stable, plan to switch to Eliquis tomorrow
Watch for bleeding in the area of her fracture
Continue to monitor in IMU
Assessment / Plan
Assessment / Plan
Physical Exam
General: Well Developed, Well Nourished and No Apparent Distress
HEENT: Normocephalic
Respiratory: CTAB
Cardiac: S1/S2 and Regular Rhythm
GI: Soft, Non Tender, Non Distended and Normal Bowel Sounds
Musculoskeletal: No Cyanosis
Skin: Rash and Other (left LE wrapped in mely. noted very swollen)
Neuro: AAO x 3 and Nonfocal/grossly intact
Psych: Calm
Assessment/Plan
#Massive saddle PE with RV strain with high risk features status post IR thrombectomy 10/13/2024
-PERT alert was called in the ED
-Continue Heparin Drip through tomorrow, to be switched to oral anticoagulation on October 16, 2024 if patient stays stable
-Pulmonology consulted
-Chest x-ray with no acute disease of the chest. Moderate elevation of direct hemidiaphragm from chest CT pending
-Duplex LE ultrasound with no DVT and ECHO with severely dilated right atrium and severely enlarged right ventricular size.
-Increase activity as able
-Will need repeat echocardiogram in 3 months
# Anemia of chronic disease
-Hemoglobin stable
-No active bleeding
-Continue to monitor
# Transaminitis - RESOLVED
-Suspected secondary to hypotension
-AST 46, ALT 39, ALK 143
-Denied abdominal pain
-Continue to monitor
# Hypotension secondary to the PE above
-Improved with PE treatment
-Never required vasopressors
#Recent left distal tib shaft fracture
-s/p IMN
-left LE edema, wrapped in MELY
-Monitor for bleeding
#Left proximal fibula fracture
-On admission, this was noted to be amenable to nonoperative treatment.
#History of Seizures
� Continue lamotrigine, Keppra, Primidone
#Hyperlipidemia
Continue statin
#Hypertension
�hold lisinopril due to hypotension
#DVT ppx
-heparin
#CODe status
-full code
Anticipated Discharge: 24 - 48 hours
Subjective/Interval History
-
Date of Service: October 15, 2024
Patient was seen and examined. She denied any chest pain or shortness of breath.
Objective Data
-
Labs:
Laboratory Results
10/15/24 10/15/24 10/15/24
05:42 13:16 20:00
WBC 5.1
Hgb 9.4 L
Hct 29.1 L
Plt Count 281
APTT 86.7 H 61.6 H Pending
Sodium 139
Potassium 4.3
Chloride 107
Carbon Dioxide 22
BUN 5 L
Creatinine 0.6
Glucose 86
Calcium 8.3 L
Total Bilirubin 0.4
AST 31
ALT 27
Alkaline Phosphatase 135 H
Vital Signs:
Vital Signs
Temp Pulse Resp BP Pulse Ox
97.5 F 80 14 96/59 99
10/15/24 11:38 10/15/24 08:38 10/15/24 04:00 10/15/24 08:38 10/15/24 10:01
I&O
10/14/24 10/15/24 10/16/24
06:59 06:59 06:59
Intake Total 1240 / 1240
Output Total 100 / 100
Balance 1240 / 1240 -100 / -100
[2024-10-15] MEDS: HEPARIN 25000 UNITS/250 ML IV (16:57)
--- NOTE | 2024-10-15 17:09 | CM ---
Patient from [facility] with Hx Recent left distal tibial fracture s/p repair, Left proximal fibula fracture. Room air. Receiving Heparin gtt. PT recommends skilled rehab.
Spoke with patient who is amenable to returning to [facility] for rehab. Patient confirms that Estephanie, her stepdaughter, is her POA. She does not speak very highly about her but her complaints are more about Estephanie not demonstrating that she cares
for her because she doesn't have much contact with her - nothing reported to suggest any concern for elder abuse. Patient very tangential in her speech. She mentions that her primary contact is with Bhargavi Rojas, a friend who assists her with
shopping etc - ph [phone]. Patient agrees that CM can contact Estephanie, her POA, re; d/c plans.
Referral placed for [facility] to continue rehab.
Plan [facility] when medically ready.
[2024-10-15] MEDS: MYSOLINE 500 MG PO (20:08)
[2024-10-15] MEDS: LIPITOR 10 MG PO (20:09)
[2024-10-15 22:06] LABS: APTT 128.9 Sec (23.4-35.0)
--- NOTE | 2024-10-15 22:49 | PTCARENOTE ---
Received patient from previous RN. Patient on Heparin gtt now at 11 (see work list). Patient on room air sating at 94%. Purewick in place draining yellow urine. Patient has no complaints at this time. Resting in bed with call christensen in reach.
Assessment and VS as documented.
[2024-10-16] VITALS (15 sets, daily range): BP systolic 99–141; BP diastolic 64–89; PULSE 78; O2SAT 96
[2024-10-16 04:09] LABS: Hematocrit 27.5 % (37.0-47.0); Hemoglobin 8.8 g/dL (12.0-16.0); Mean Corpuscular Volume 106.2 fL (81.0-99.0); Platelet Count 263 10^3/uL (130-400); Red Blood Cell Count 2.59 10^6/uL (4.20-5.40); Red Cell Dist. Width 14.1 % (11.5-14.5); White Blood Cell Count 4.6 10^3/uL (4.8-10.8)
[2024-10-16 04:21] LABS: APTT 93.3 Sec (23.4-35.0)
[2024-10-16 04:32] LABS: ALT (SGPT) 22 U/L (0-35); AST (SGOT) 27 U/L (14-36); Albumin 2.8 g/dl (3.5-5.0); Alkaline Phosphatase 128 U/L (38-126); Blood Urea Nitrogen 8 mg/dl (7-17); Calcium 8.4 mg/dl (8.4-10.2); Carbon Dioxide 21 mmol/L (22-30); Chloride 108 mmol/L (98-107); Estimated Creatinine Clearance 96 ml/min; Glucose 106 mg/dl (70-99); Magnesium 2.2 mg/dl (1.6-2.3); Potassium 3.8 mmol/L (3.5-5.1); Sodium 137 mmol/L (135-145); Total Bilirubin 0.2 mg/dl (0.2-1.3); eGFR > 60.00
[2024-10-16] MEDS: KEPPRA 1500 MG PO ×2 (09:38→19:42)
[2024-10-16] MEDS: LAMICTAL 200 MG PO ×2 (09:38→19:42)
[2024-10-16] MEDS: DIAMOX 250 MG PO (09:39)
[2024-10-16] MEDS: NEURONTIN 800 MG PO ×3 (09:39→21:04)
[2024-10-16] MEDS: MYSOLINE 250 MG PO (09:39)
[2024-10-16] MEDS: TESSALON PERLES 100 MG PO ×3 (09:40→21:04)
--- NOTE | 2024-10-16 10:59 | W.PN.HOSP.TC ---
Today's Communication/Plan
-
Need to figure out whether Lovenox can be used for outpatient anticoagulation given that patient is on Primidone which can decrease the amounts of the other oral anticoagulants -- appreciate hematology assistance here
Assessment / Plan
Assessment / Plan
Physical Exam
General: Well Developed, Well Nourished and No Apparent Distress
HEENT: Normocephalic
Respiratory: CTAB
Cardiac: S1/S2 and Regular Rhythm
GI: Soft, Non Tender, Non Distended and Normal Bowel Sounds
Musculoskeletal: No Cyanosis
Skin: Rash and Other (left LE wrapped in mely. noted very swollen)
Neuro: AAO x 3 and Nonfocal/grossly intact
Psych: Calm
Assessment/Plan
#Massive saddle PE with RV strain with high risk features status post IR thrombectomy 10/13/2024
-PERT alert was called in the ED
-Continue Heparin Drip
-Pulmonology consulted
-Chest x-ray with no acute disease of the chest. Moderate elevation of direct hemidiaphragm from chest CT pending
-Duplex LE ultrasound with no DVT and ECHO with severely dilated right atrium and severely enlarged right ventricular size.
-Increase activity as able
-Will need repeat echocardiogram in 3 months
-Eliquis and Xarelto and Coumadin interact with patient's Primidone (which is for tremors) -- Primidone can reduce the levels of those medications; consulted hematology given patient had a saddle PE, and best alternative regimen seems to be Lovenox
subq
# Anemia of chronic disease
-No active bleeding
-Continue to monitor
# Transaminitis - RESOLVED
-Suspected secondary to hypotension
-AST 46, ALT 39, ALK 143
-Denied abdominal pain
-Continue to monitor
# Hypotension secondary to the PE above
-Improved with PE treatment
-Never required vasopressors
#Recent left distal tib shaft fracture
-s/p IMN
-left LE edema, wrapped in MELY
-Monitor for bleeding
-The [facility] called and said she is due to have her betty out of her leg on 10/17/24 and asked if we could do it while she is here - will ask Dr. Arvizu or ortho PA's if they could do this without a formal consult
#Left proximal fibula fracture
-On admission, this was noted to be amenable to nonoperative treatment.
#History of Seizures
� Continue lamotrigine, Keppra, Primidone
#Hyperlipidemia
Continue statin
#Hypertension
�hold lisinopril due to hypotension
#DVT ppx
-heparin
#CODe status
-full code
Anticipated Discharge: 24 - 48 hours
Subjective/Interval History
-
Date of Service: October 16, 2024
Patient was seen and examined. She denied any chest pain or shortness of breath.
Objective Data
-
Labs:
Laboratory Results
10/16/24 10/16/24
03:57 10:49
WBC 4.6 L
Hgb 8.8 L
Hct 27.5 L
Plt Count 263
APTT 93.3 H Pending
Sodium 137
Potassium 3.8
Chloride 108 H
Carbon Dioxide 21 L
BUN 8
Creatinine 0.6
Glucose 106 H
Calcium 8.4
Total Bilirubin 0.2
AST 27
ALT 22
Alkaline Phosphatase 128 H
Vital Signs:
Vital Signs
Temp Pulse Resp BP Pulse Ox
98.8 F 78 21 128/75 96
10/16/24 07:24 10/16/24 09:39 10/16/24 06:00 10/16/24 09:39 10/16/24 06:00
I&O
10/15/24 10/16/24 10/17/24
06:59 06:59 06:59
Output Total 100 / 100 350 / 350
Balance -100 / -100 -350 / -350
--- NOTE | 2024-10-16 11:12 | W.PN.PUL.V3 ---
Today's Communication / Plan
-
Convert heparin drip to oral anticoagulant-potential drug interactions
Hematology evaluation
Outpatient pulmonary follow-up
Assessment
-
Assessment: 69-year-old female former tobacco smoker with a past medical history of epilepsy, hypertension, hyperlipidemia and recent fall with left distal tibial fracture s/p intramedullary nail (performed 09/27/2024) who presents with choking on
dinner with SOB. She said that she choked on pork schnitzel this evening and then became short of breath with coughing afterwards. EMS arrived and patient was hypotensive with SBP in the 80s and 82% on room air. Patient brought to the ER on NRB
with sats of 96%. Patient has been more short of breath the last several days that she attributes to being bedbound since her recent left lower extremity surgery on 09/27/2024. In the ER she was afebrile to 97.6 �F, tachycardic to 102, breathing
at 21 breaths/min, BP 101/65 and saturating 92% on 6 L/min nasal cannula. Labs showed Hb 11.7, platelet count 401, serum bicarbonate level 20, troponin level 0.234, proBNP 7700 and COVID-19 antigen negative. Flu A/B swab also negative. Blood
cultures were collected. CXR showed moderate elevation of the right diaphragm with no acute pathology. CTA chest showed multiple bilateral PE with evidence of saddle embolus with moderate clot burden and evidence of RV strain. PERT alert called
and pulmonary consulted to evaluate the patient further.
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
Impression:
# Massive saddle PE with RV strain with high risk features
Echocardiogram with RV dysfunction
Lower extremity Dopplers and
#Hypotension due to above
#Elevated troponin likely due to above
#Thrombocytosis likely reactive due to acute PE
#Metabolic acidosis with normal anion gap
#Transaminitis (mild)
#Chronic anemia
#Recent fall complicated by acute left distal tibia shaft fracture s/p removal of hardware and left tibial intramedullary nail (performed 09/27/2024)
# Former tobacco smoker ([id number] history, quit 1989)
Plan:
Respiratory status improved
Supplemental oxygen as needed
Assess discharge supplemental oxygen needs at the time of discharge-patient frustrated and hopes she does not need supplemental oxygen
Aspiration precautions
Incentive spirometry
Currently on heparin drip
Convert to oral anticoagulant-has medication interactions and may require alternative to Eliquis such as Lovenox or Coumadin
Hematology evaluation pending
Recent tibial fracture status post surgery 09/27/2024-no evidence for bleeding
Follow hemoglobin
Transfuse as needed
Monitor blood sugar
Insulin supplementation as needed
DVT prophylaxis-on heparin
Nutrition
Early mobilization
Outpatient pulmonary follow-up
Data:
CTA Chest 10/13/2024: Multiple bilateral pulmonary emboli to all lobes with saddle embolus at the main pulmonary artery bifurcation. Moderate clot burden. Findings consistent with right heart strain.
Subjective Data
-
Date of Service:
Date of Service: October 16, 2024
Chief Complaint: Pulmonary Follow Up (Acute massive pulmonary embolism status post embolectomy 10/13/2024) and Dyspnea Follow Up
Subjective:
Denies any worsening shortness of breath, chest pain, chest tightness, productive cough or abdominal pain, frustrated
Review of Systems
General: Other (Per HPI)
Objective Data
Data Reviewed
Vital Signs / I&O:
Vital Signs
Temp Pulse Resp BP Pulse Ox
98.8 F 78 21 128/75 96
10/16/24 07:24 10/16/24 09:39 10/16/24 06:00 10/16/24 09:39 10/16/24 06:00
Intake and Output
10/15/24 10/16/24 10/17/24
06:59 06:59 06:59
Output Total 100 / 100 350 / 350
Balance -100 / -100 -350 / -350
SaO2: 96
Nasal Cannula flow liters per minute: 1.5
Physical Exam
General: Respiratory Distress (n) and Comfortable
HEENT: Normocephalic and Anicteric
Cardiovascular: S1-S2 and Regular Rhythm
Respiratory: Clear, Wheeze (n), Crackles (Basilar crackles), Non-Labored Respirations, Accessory Resp Muscle Use (n) and Stridor (n)
GI: Soft and Distended (Obese)
Neurology: Awake, Alert and AO x 3
Skin: Good Color, Cyanosis (n), Jaundice (n) and Other (Left leg is dressed)
Labs/Micro/Reports
Lab Data
10/16/24 03:57
10/16/24 03:57
Laboratory Results
10/15/24 10/15/24 10/16/24
13:16 19:46 03:57
APTT 61.6 H 128.9 H 93.3 H
Microbiology
10/13/24 14:27 Blood/Venous Blood Culture - Preliminary
No Growth in 48 hours- Final report to follow
10/13/24 14:27 Blood/Venous Blood Culture - Preliminary
No Growth in 48 hours- Final report to follow
10/14/24 03:26 Nose MRSA Screen - Final
No Methicillin Resistant Staphylococcus aureus isolated.
10/13/24 14:27 Nasal Swab Influenza Types A & B (SERGIO) - Final
Negative for Influenza A & B, NAAT
Negative results must be combined with clinical observations
and patient history.
Nucleic Acid Amplification test (NAAT)performed on the
[employer] platform.
[2024-10-16 11:15] LABS: APTT 66.4 Sec (23.4-35.0)
--- NOTE | 2024-10-16 11:15 | PTCARENOTE ---
Slim called and informed RN that pt is due to have left leg betty out tomorrow and asked if patient could have them out while hospitalized. TT send to , who advised if patient is still admitted tomorrow, he will consult ortho.
Assessment, care and VS as charted.
[2024-10-16] MEDS: HEPARIN 4100 UNITS IV (11:35)
--- NOTE | 2024-10-16 12:08 | CON.ONC ---
Addendum entered and electronically signed by Dede Patton MD 10/16/24 13:28:
Pt is on primidone for benign essential tremor, not epilepsy. Tremor still bad even at highest dose of Primidone and there are no plans right now to take her off it.
Primidone can decrease the effectiveness of Eliquis and Xarelto so these are not good options for her.
Coumadin is an option, but primidone can decrease effect of coumadin also and increase of 30-60% over usual dose could be a factor.
Pt unenthusiastic about coumadin.
Lovenox may be her best option at 100 mg/kg SQ BID. She lives at [facility] (states she move there due to her 's needs and he has now .) She does not feel she could self-inject, but if this could be done at her current
facility, then Lovenox best option.
Otherwise, would recommend warfarin with knowledge that she may need higher doses than we are used to and there may be difficulty maintaining INR in therapeutic range, as there is also a significant medication interaction between primidone and
lamictal.
D/C planning: please investigate whether a nurse would be available at her residence to give Lovenox.
Thank you for consult.
Original Note:
Impression
Impression
#Massive saddle PE with RV strain s/p thrombectomy (10/13/2024)
#Recent left distal tib shaft fracture s/p intramedullary nail (09/27/2024)
Plan
Plan
Due to long-term use of primidone for epilepsy, there is a possibility for potential drug interactions
Currently on heparin drip, will transition to Coumadin.
Monitor INRs on Coumadin therapy.
Patient History
History of Present Illness
This is a 69-year-old female with past medical history of epilepsy, hypertension, hyperlipidemia, recent fall with left distal tibial fracture s/p intramedullary nail (surgery date 09/27/2024) who presents to ER 10/13/2024 complaining of shortness
of breath with dinner. Patient reports episode of shortness of breath and coughing while she was having dinner, in addition she reports shortness of breath has been ongoing since her lower extremity surgery date. On presentation to the ER, she was
afebrile 97.6, tachycardic to 102, respiratory rate 21, blood pressure 101/65, O2 sats 92% on 6 L nasal cannula. Evaluation with a chest x-ray showed moderate elevation of the right diaphragm. CTA chest showed Multiple bilateral pulmonary emboli
to all lobes with saddle embolus at the main pulmonary artery bifurcation. Moderate clot burden. Findings consistent with right heart strain. Patient was admitted to the hospital and started on heparin gtt. in addition, IR was consulted and she is
status post thrombectomy 10/13/2024. Lower extremity Dopplers were negative for DVT. Patient is hemodynamically stable at bedside today. She is on heparin drip.
In addition to her history, patient reports history of epilepsy diagnosed when she was 14. She states was started on primidone therapy for epilepsy 10 years ago, and now she is on the max dose of primidone 250 mg daily and primidone 500 mg at
bedtime. We have been consulted by the primary team to evaluate oral anticoagulation as patient might have medication interaction.
Past-Medical/Surgical History
Past medical history
Epilepsy
Hypertension
Hyperlipidemia
Left ankle fracture s/p ORIF
Past surgical history
Left tibial intramedullary nail (09/27/2024)
Left ankle ORIF (04/01/2019)
Social history
Patient is a former smoker with [id number] history, quit 1989
Denies alcohol, denies drug use, lives in a detention
Patient Medication
�Medication �Instructions �Recorded �Confirmed �Last Taken �Type
acetazolamide 250 mg tablet 250 mg PO DAILY Neurological 07/23/22 10/13/24 Unknown History
Condition
calcium 500 mg (as 1 tab PO BID Supplement 07/23/22 10/13/24 Unknown History
carbonate)-vitamin D3 10 mcg (400
unit) tablet (Calcium 500 With D)
gabapentin 800 mg tablet 800 mg PO TID Neurological 07/23/22 10/13/24 Unknown History
Condition
lamotrigine 200 mg tablet 200 mg PO BID Seizures 07/23/22 10/13/24 Unknown History
levetiracetam 750 mg tablet 1,500 mg PO BID Seizures 07/23/22 10/13/24 Unknown History
(Keppra)
lisinopril 20 mg tablet 40 mg PO HS Blood pressure 07/23/22 10/13/24 Unknown History
primidone 250 mg tablet 250 mg PO DAILY Seizures 07/23/22 10/13/24 Unknown History
primidone 250 mg tablet 500 mg PO HS Seizures 07/23/22 10/13/24 Unknown History
acetaminophen 500 mg tablet 500 mg PO Q6HPRN PRN mild 04/20/23 10/13/24 Unknown History
pain/fever
cholecalciferol (vitamin D3) 25 25 mcg PO DAILY Supplement 04/20/23 10/13/24 Unknown History
mcg (1,000 unit) tablet
loperamide 2 mg capsule (Imodium 2 mg PO Q6HPRN PRN diarrhea 04/20/23 10/13/24 Unknown History
A-D)
cyanocobalamin (vitamin B-12) 1,000 mcg PO DAILY Supplement 09/26/24 10/13/24 Unknown History
1,000 mcg tablet,extended release
tramadol 50 mg tablet 50 mg PO Q8HPRN PRN moderate pain 09/26/24 10/13/24 Unknown History
aspirin 325 mg tablet 325 mg PO DAILY #0 tabs 10/01/24 10/13/24 Unknown Rx
acetaminophen 325 mg tablet 650 mg PO Q6HPRN PRN mild 10/13/24 10/13/24 Unknown History
pain/fever>100
atorvastatin 10 mg tablet 10 mg PO HS High Cholesterol 10/13/24 10/13/24 Unknown History
benzonatate 100 mg capsule 100 mg PO TID Cough 10/13/24 10/13/24 Unknown History
bisacodyl 10 mg rectal suppository 10 mg OR DAILYPRN PRN no bm x3 days 10/13/24 10/13/24 Unknown History
(Dulcolax (bisacodyl))
magnesium hydroxide 400 mg/5 mL 30 ml PO [id number] PRN no bm x3 days 10/13/24 10/13/24 Unknown History
oral suspension (Milk of Magnesia)
sodium phosphates 19 gram-7 118 ml OR DAILYPRN PRN no bm x4 10/13/24 10/13/24 Unknown History
gram/118 mL enema (Fleet Enema) days
Active Medications
Generic Name Dose Route Start Last Admin
Trade Name Freq PRN Reason Stop Dose Admin
Acetaminophen 650 mg 10/13/24 19:41
Acetaminophen 325 Mg Tablet PO 11/10/24 19:40
Q4HPRN PRN
mild pain/temp > 100.4 F
Acetazolamide 250 mg 10/14/24 08:00 10/16/24 09:39
Acetazolamide 250 Mg Tablet PO 11/11/24 07:59 250 mg
DAILY CRISTIAN Administration
Atorvastatin Calcium 10 mg 10/13/24 22:00 10/15/24 20:09
Atorvastatin (Lipitor) 10 Mg Tablet PO 11/10/24 21:59 10 mg
HS CRISTIAN Administration
Benzonatate 100 mg 10/13/24 22:00 10/16/24 09:40
Benzonatate 100 Mg Capsule PO 11/10/24 21:59 100 mg
TID CRISTIAN Administration
Gabapentin 800 mg 10/13/24 22:00 10/16/24 09:39
Gabapentin 400 Mg Capsule PO 11/10/24 21:59 800 mg
TID CRISTIAN Administration
Heparin Sodium 8,100 units 10/14/24 22:13 10/15/24 14:07
Heparin 80 Units/Kg Rebolus-Do Not Discard IV 11/11/24 22:12 8,100 units
PRN PRN Administration
PTT < OR = 64 seconds
Heparin Sodium 4,100 units 10/14/24 22:13 10/16/24 11:35
Heparin 40 Units/Kg Rebolus-Do Not Discard IV 11/11/24 22:12 4,100 units
PRN PRN Administration
PTT = 64.1 to 72.9 seconds
Heparin Sodium 25,000 units in 250 mls @ 0 mls/hr 10/14/24 22:15 10/15/24 16:57
Heparin 48361 Units/250 Ml IV 250 mls
PER PROTOCOL CRISTIAN Administration
Protocol
Per Protocol
Lamotrigine 200 mg 10/13/24 20:00 10/16/24 09:38
Lamotrigine 100 Mg Tablet PO 11/10/24 19:59 200 mg
BID CRISTIAN Administration
Levetiracetam 1,500 mg 10/13/24 20:00 10/16/24 09:38
Levetiracetam 500 Mg Regular Release Tablet PO 11/10/24 19:59 1,500 mg
BID CRISTIAN Administration
Primidone 250 mg 10/14/24 08:00 10/16/24 09:39
Primidone 250 Mg Tablet PO 11/11/24 07:59 250 mg
DAILY CRISTIAN Administration
Primidone 500 mg 10/13/24 22:00 10/15/24 20:08
Primidone 250 Mg Tablet PO 11/10/24 21:59 500 mg
HS CRISTIAN Administration
Sodium Chloride 0 flush 10/13/24 21:00
Sodium Chloride 0.9% (Flush) Syringe IV 11/10/24 20:59
PER PROTOCOL CRISTIAN
Tramadol HCl 50 mg 10/13/24 19:41
Tramadol Hcl 50 Mg Tablet PO 11/10/24 19:40
Q8HPRN PRN
moderate pain
Review of Systems
-
All Other Systems: Reviewed and Negative (Except as documented in HPI and plan)
Physical Exam
-
General: No Apparent Distress
Cardiology: S1 and S2
Pulmonary: Other (Mild bilateral basilar crackles); Negative Wheezes
GI: Soft; Negative Distended
Psych: Calm
Labs
Lab Results
WBC 4.6 10^3/uL (4.8-10.8) L 10/16/24 03:57
RBC 2.59 10^6/uL (4.20-5.40) L 10/16/24 03:57
Hgb 8.8 g/dL (12.0-16.0) L 10/16/24 03:57
Hct 27.5 % (37.0-47.0) L 10/16/24 03:57
MCV 106.2 fL (81.0-99.0) H 10/16/24 03:57
MCH 34.0 pg (27.0-31.0) H 10/16/24 03:57
MCHC 32.0 g/dL (33.0-37.0) L 10/16/24 03:57
RDW 14.1 % (11.5-14.5) 10/16/24 03:57
Plt Count 263 10^3/uL (130-400) 10/16/24 03:57
MPV 11.0 fL (7.4-10.4) H 10/16/24 03:57
Abs Immat Gran (auto) 0.1 10^3/uL (0-0.05) H 10/13/24 12:43
Absolute Neuts (auto) 6.0 10^3/uL (1.4-6.5) 10/13/24 12:43
Absolute Lymphs (auto) 1.0 10^3/uL (1.2-3.4) L 10/13/24 12:43
Absolute Monos (auto) 0.6 10^3/uL (0.1-0.6) 10/13/24 12:43
Absolute Eos (auto) 0.1 10^3/uL (0-0.7) 10/13/24 12:43
Absolute Basos (auto) 0.1 10^3/uL (0-0.2) 10/13/24 12:43
Immature Gran % 1.3 % (0-0.5) H 10/13/24 12:43
Neutrophils % 77.7 % (42.2-75.2) H 10/13/24 12:43
Lymphocytes % 12.5 % (20.5-51.1) L 10/13/24 12:43
Monocytes % 7.1 % (1.7-9.3) 10/13/24 12:43
Eosinophils % 0.8 % (0-6) 10/13/24 12:43
Basophils % 0.6 % (0-2) 10/13/24 12:43
Creatinine 0.6 mg/dL (0.6-1.0) 10/16/24 03:57
Vital Signs
Vital Signs
Temp Pulse Resp BP Pulse Ox
98.8 F 78 21 128/75 96
10/16/24 07:24 10/16/24 09:39 10/16/24 06:00 10/16/24 09:39 10/16/24 11:12
[2024-10-16] MEDS: HEPARIN 25000 UNITS/250 ML IV (13:16)
--- NOTE | 2024-10-16 16:03 | PN.CDI ---
CDI
- -
CDI:
Physician Documentation Request
Admit Date: 10/13/24 14:32
Dear Doctor Ruthie,
Patient is being managed for pulmonary embolism.
Pulmonary progress note indicated 'RV strain'
Echo 1/3 shows severely dilated right atrium, severely enlarged right ventricle. Estimated PA pressure of 50 mmHg.
Please further specify regarding the pulmonary embolism
with Cor pulmonale
without Cor pulmonale
Other
Use of terms such as suspected, likely, concern for, or probable (associated with a specific diagnosis that is being evaluated, monitored, or treated as if it exists) are acceptable and can be coded in the inpatient setting, when documented at the
time of discharge.
Thank you,
Regina Eagle RN, BSN
CDI Specialist
tiger text
Please use your independent medical judgment in providing your response.
--- NOTE | 2024-10-16 16:07 | PN.CDI ---
CDI
- -
CDI:
Physician Documentation Request
Admit Date: 10/13/24 14:32
Dear Doctor Ruthie
Patient presented to the ED in respiratory distress. 'staff found her this morning to be hypoxic in the 70s and EMS was called to bring to the hospital. Per EMS on their arrival patient was hypotensive and severely hypoxic requiring nonrebreather
mask'
Another note in the ED states 'Patient is hypoxic to 88% despite 6 L nasal cannula'
Please clarify which of the following accurately represented the patient's respiratory status:
Acute respiratory failure- please indicate type
hypoxia
Other
Additional information for Respiratory Failure:
Recognized criteria for Respiratory Failure (Source: [facility] Aug 2013)
ABGs: (1 or more) Symptoms Please indicate type if known
1. p)2 <60 or RA SPO2 <91% on RA 1. Tachypnea, SOB, dyspnea Hypoxic
2. pCO2 50 and pH <7.35 2. Use of accessory muscles Hypercapnic
3. pO2 decrease of pCO2 increase by 3. Pallor or cyanosis Hypoxic and Hypercapnic
10 mmHg from baseline if known 4. Anxiety or restlessness Unable to determine
5. Unable to speak in full sentences
Supplemental O2 of > 40% (5LPM) Intubation is not required
Use of terms such as suspected, likely, concern for, or probable (associated with a specific diagnosis that is being evaluated, monitored, or treated as if it exists) are acceptable and can be coded in the inpatient setting, when documented at the
time of discharge.
Thank you,
Regina Eagle RN, BSN
CDI Specialist
tiger text
Please use your independent medical judgment in providing your response.
--- NOTE | 2024-10-16 16:34 | PN.CDI ---
CDI
- -
CDI:
Physician Documentation Request
Admit Date: 10/13/24 14:32
Dear Doctor Ruthie,
Please review the following and provide your response in the progress notes.
Clinical Indicators:
Height: 5 ft 1 inch
Weight: 224 (1/3)
BMI:43.0
RD notes state patient is obese
If possible, please provide an associated diagnosis related to the abnormal BMI, such as:
BMI > or = to 40
Overweight
Obesity:
Due to excess calories
Drug induced
Due to other cause
Severe or morbid obesity:
With alveolar hypoventilation (Obesity hypoventilation syndrome)
Without alveolar hypoventilation
- BMI is not significant
- Other
Use of terms such as suspected, likely, concern for, or probable (associated with a specific diagnosis that is being evaluated, monitored, or treated as if it exists) are acceptable and can be coded in the inpatient setting, when documented at the
time of discharge.
Thank you,
Regina Eagle RN, BSN
CDI Specialist
tiger text
Please use your independent medical judgment in providing your response.
--- NOTE | 2024-10-16 16:37 | PN.CDI ---
CDI
- -
CDI:
Physician Documentation Request
Admit Date: 10/13/24 14:32
Dear Doctor Ruthie,
Patient is admitted with pulmonary embolism.
10/13 troponin result 0.234
Could you please provide a diagnosis that supports the above lab abnormalities:
Nonischemic myocardial injury
Type II SD demand ischemia
Other
Use of terms such as suspected, likely, concern for, or probable (associated with a specific diagnosis that is being evaluated, monitored, or treated as if it exists) are acceptable and can be coded in the inpatient setting, when documented at the
time of discharge.
Thank you,
Regina Eagle RN, BSN
CDI Specialist
tiger text
Please use your independent medical judgment in providing your response.
--- NOTE | 2024-10-16 16:46 | RESPNOTE ---
Patient unable to ambulate, non-weight bearing
--- NOTE | 2024-10-16 16:50 | CM ---
Patient from [facility] with Hx Recent left distal tibial fracture s/p repair, Left proximal fibula fracture. O2 2L. Receiving Heparin gtt. PT recommends skilled rehab.
Request from Dr Danile to find out if SNF can do Lovenox injections, as patient does not feel she can self inject.
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
responded: She needs anticoagulation for at least 6 months, probably long-term. She will consider other med options.
Spoke with Cortney, [facility]; she checked with her DON and confirms that their nurses are able to do Lovenox injections. The daughter is holding her SNF bed. They are able to accept the patient when she is medically ready. The ph for
report [phone], fax [phone].
Plan [facility] when medically ready.
[2024-10-16 18:09] LABS: APTT 88.9 Sec (23.4-35.0)
--- NOTE | 2024-10-16 21:03 | PTCARENOTE ---
Pt c/o increased pain in LLE, but states that gabapentin usually helps. Pt is due to receive scheduled dose of gabapentin per DEC. This RN also administered PRN tylenol at this time. Pt denied tramadol, states that it does not help her pain. Pt
maintained on 1L O2 at 98%. VSS. MELY wrap in place on LLE, pt states that it has not been taken off at . L foot that can be visualized without removing dressing appears ecchymotic-blue. Pt states that she does not remember if it looked like this
previously. Pulses present, but weak b/l. Call christensen within reach. Heparin gtt remains in place.
[2024-10-16] MEDS: MYSOLINE 500 MG PO (21:04)
[2024-10-16] MEDS: LIPITOR 10 MG PO (21:04)
[2024-10-16] MEDS: TYLENOL 650 MG PO (21:05)
[2024-10-17] VITALS (11 sets, daily range): BP systolic 95–139; BP diastolic 46–99
[2024-10-17 00:42] LABS: APTT 134.8 Sec (23.4-35.0)
[2024-10-17 04:51] LABS: Hematocrit 31.1 % (37.0-47.0); Hemoglobin 9.7 g/dL (12.0-16.0); Mean Corp Hgb Conc. 31.2 g/dL (33.0-37.0); Mean Corpuscular Hgb 34.9 pg (27.0-31.0); Mean Corpuscular Volume 111.9 fL (81.0-99.0); Mean Platelet Volume 10.5 fL (7.4-10.4); Platelet Count 302 10^3/uL (130-400); Red Blood Cell Count 2.78 10^6/uL (4.20-5.40); Red Cell Dist. Width 14.2 % (11.5-14.5); White Blood Cell Count 3.9 10^3/uL (4.8-10.8)
[2024-10-17 05:16] LABS: Blood Urea Nitrogen 5 mg/dl (7-17); Calcium 8.8 mg/dl (8.4-10.2); Carbon Dioxide 23 mmol/L (22-30); Chloride 109 mmol/L (98-107); Estimated Creatinine Clearance 96 ml/min; Glucose 90 mg/dl (70-99); Magnesium 2.2 mg/dl (1.6-2.3); Potassium 4.2 mmol/L (3.5-5.1); Sodium 139 mmol/L (135-145); eGFR > 60.00
--- NOTE | 2024-10-17 08:03 | W.PN.PUL.V3 ---
Today's Communication / Plan
-
Convert to Coumadin
Hematology following
Wean oxygen
Increase activity
Pulmonary will sign off-please call with questions
Assessment
-
Assessment: 69-year-old female former tobacco smoker with a past medical history of epilepsy, hypertension, hyperlipidemia and recent fall with left distal tibial fracture s/p intramedullary nail (performed 09/27/2024) who presents with choking on
dinner with SOB. She said that she choked on pork schnitzel this evening and then became short of breath with coughing afterwards. EMS arrived and patient was hypotensive with SBP in the 80s and 82% on room air. Patient brought to the ER on NRB
with sats of 96%. Patient has been more short of breath the last several days that she attributes to being bedbound since her recent left lower extremity surgery on 09/27/2024. In the ER she was afebrile to 97.6 �F, tachycardic to 102, breathing
at 21 breaths/min, BP 101/65 and saturating 92% on 6 L/min nasal cannula. Labs showed Hb 11.7, platelet count 401, serum bicarbonate level 20, troponin level 0.234, proBNP 7700 and COVID-19 antigen negative. Flu A/B swab also negative. Blood
cultures were collected. CXR showed moderate elevation of the right diaphragm with no acute pathology. CTA chest showed multiple bilateral PE with evidence of saddle embolus with moderate clot burden and evidence of RV strain. PERT alert called
and pulmonary consulted to evaluate the patient further.
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
Impression:
# Massive saddle PE with RV strain with high risk features
Echocardiogram with RV dysfunction
Lower extremity Dopplers and
#Hypotension due to above
#Elevated troponin likely due to above
#Thrombocytosis likely reactive due to acute PE
#Metabolic acidosis with normal anion gap
#Transaminitis (mild)
#Chronic anemia
#Recent fall complicated by acute left distal tibia shaft fracture s/p removal of hardware and left tibial intramedullary nail (performed 09/27/2024)
# Former tobacco smoker ([id number] history, quit 1989)
Plan:
Respiratory status continues to improve
Supplemental oxygen as needed
Assess discharge supplemental oxygen needs at the time of discharge-patient frustrated and hopes she does not need supplemental oxygen
Aspiration precautions
Incentive spirometry
Currently on heparin drip
Convert to oral anticoagulant-has medication interactions and may require alternative to Eliquis such as Lovenox or Coumadin
Hematology evaluation noted
Recent tibial fracture status post surgery 09/27/2024-no evidence for bleeding
Follow hemoglobin
Transfuse as needed
Monitor blood sugar
Insulin supplementation as needed
DVT prophylaxis-on heparin
Nutrition
Early mobilization
Reviewed with nursing
Respiratory status now stable, convert to oral anticoagulant or Lovenox and eventually follow-up in the outpatient pulmonary-pulmonary will sign off-please call with questions
Outpatient pulmonary follow-up
Data:
CTA Chest 10/13/2024: Multiple bilateral pulmonary emboli to all lobes with saddle embolus at the main pulmonary artery bifurcation. Moderate clot burden. Findings consistent with right heart strain.
Subjective Data
-
Date of Service:
Date of Service: October 17, 2024
Chief Complaint: Pulmonary Follow Up (Acute massive pulmonary embolism status post embolectomy 10/13/2024) and Dyspnea Follow Up
Subjective:
No complaints of shortness of breath, chest pain, pleurisy, or abdominal pain
Review of Systems
General: Other
Objective Data
Data Reviewed
Vital Signs / I&O:
Vital Signs
Temp Pulse Resp BP Pulse Ox
98.1 F 65 18 102/46 100
10/17/24 07:28 10/17/24 06:00 10/17/24 06:00 10/17/24 06:00 10/17/24 02:00
Intake and Output
10/16/24 10/17/24 10/18/24
06:59 06:59 06:59
Intake Total 480 / 480
Output Total 350 / 350 2350 / 2350
Balance -350 / -350 -1870 / -1870
SaO2: 100
Nasal Cannula flow liters per minute: 1
Physical Exam
General: Respiratory Distress (n) and Comfortable
HEENT: Normocephalic and Anicteric
Cardiovascular: S1-S2 and Regular Rhythm
Respiratory: Clear, Wheeze (n), Crackles (Basilar crackles), Non-Labored Respirations, Accessory Resp Muscle Use (n) and Stridor (n)
GI: Soft and Distended (Obese)
Neurology: Awake, Alert and AO x 3
Skin: Good Color, Cyanosis (n), Jaundice (n) and Other (Left leg is dressed)
Labs/Micro/Reports
Lab Data
10/17/24 04:29
10/17/24 04:29
Laboratory Results
10/16/24 10/16/24 10/17/24
10:49 17:40 00:14
APTT 66.4 H 88.9 H 134.8 H
Microbiology
10/13/24 14:27 Blood/Venous Blood Culture - Preliminary
No Growth in 72 hours- Final report to follow
10/13/24 14:27 Blood/Venous Blood Culture - Preliminary
No Growth in 72 hours- Final report to follow
10/14/24 03:26 Nose MRSA Screen - Final
No Methicillin Resistant Staphylococcus aureus isolated.
[2024-10-17] MEDS: MYSOLINE 250 MG PO (08:15)
[2024-10-17] MEDS: DIAMOX 250 MG PO (08:15)
[2024-10-17] MEDS: KEPPRA 1500 MG PO ×2 (08:16→19:57)
[2024-10-17] MEDS: LAMICTAL 200 MG PO ×2 (08:16→19:57)
[2024-10-17] MEDS: NEURONTIN 800 MG PO ×3 (08:16→21:03)
[2024-10-17] MEDS: TESSALON PERLES 100 MG PO ×3 (08:16→21:04)
[2024-10-17 08:23] LABS: APTT 66.5 Sec (23.4-35.0)
[2024-10-17] MEDS: HEPARIN 4100 UNITS IV (08:52)
[2024-10-17] MEDS: HEPARIN 25000 UNITS/250 ML IV (08:53)
--- NOTE | 2024-10-17 10:09 | W.PN.ONC ---
Today's Communication / Plan
-
Continue heparin gtt, would transition to Lovenox if staff able to inject Lovenox for patient at her facility
Otherwise, would transition to warfarin, goal INR 2-3
(DOACs are not options due to primidone interactions)
Treat x 6 months in the setting of provoked saddle PE
No indication for thrombophilia testing
Hematology will sign off, please call with any questions.
Impression
Impression
#Massive saddle PE with RV strain s/p thrombectomy (10/13/2024)
#Recent left distal tib shaft fracture s/p intramedullary nail (09/27/2024)
Plan
Plan
Continue heparin gtt, would transition to Lovenox if staff able to inject Lovenox for patient at her facility
Otherwise, would transition to warfarin, goal INR 2-3
(DOACs are not options due to primidone interactions)
Treat x 6 months in the setting of provoked saddle PE
No indication for thrombophilia testing
Hematology will sign off, please call with any questions.
Subjective/Objective
Subjective/Objective
breathing more comfortably, now weaned off O2
Vital Signs:
Vital Signs
Temp Pulse Resp BP Pulse Ox
98.1 F 65 18 102/46 100
10/17/24 07:28 10/17/24 06:00 10/17/24 06:00 10/17/24 06:00 10/17/24 08:03
Lab Results:
Laboratory Data
WBC 3.9 10^3/uL (4.8-10.8) L 10/17/24 04:29
Hgb 9.7 g/dL (12.0-16.0) L 10/17/24 04:29
Plt Count 302 10^3/uL (130-400) 10/17/24 04:29
PT 15.5 Sec (11.4-14.6) H 10/13/24 14:27
INR 1.2 10/13/24 14:27
APTT 66.5 Sec (23.4-35.0) H 10/17/24 08:04
eGFR > 60.00 10/17/24 04:29
--- NOTE | 2024-10-17 15:23 | W.PN.HOSP.TC ---
Today's Communication/Plan
-
SNF able to take patient tomorrow
Will discharge patient on therapeutic Lovenox
Assessment / Plan
Assessment / Plan
Physical Exam
General: Well Developed, Well Nourished and No Apparent Distress
HEENT: Normocephalic
Respiratory: CTAB. Saturating oxygen well on room air.
Cardiac: S1/S2 and Regular Rhythm
GI: Soft, Non Tender, Non Distended and Normal Bowel Sounds
Musculoskeletal: No Cyanosis
Skin: Rash and Other (left LE wrapped in esau. noted very swollen)
Neuro: AAO x 3 and Nonfocal/grossly intact
Psych: Calm
Assessment/Plan
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
#Acute Hypoxic Respiratory Failure Secondary to the Above
-PERT alert was called in the ED
-Status post Heparin Drip, switch to Lovenox 1mg/kg Q12H
-Pulmonology consulted
-Chest x-ray with no acute disease of the chest. Moderate elevation of direct hemidiaphragm from chest CT pending
-Duplex LE ultrasound with no DVT and ECHO with severely dilated right atrium and severely enlarged right ventricular size.
-Increase activity as able
-Will need repeat echocardiogram in 3 months
-Eliquis and Xarelto and Coumadin interact with patient's Primidone (which is for tremors) -- Primidone can reduce the levels of those medications; consulted hematology given patient had a saddle PE, and best alternative regimen seems to be Lovenox
subq
-Patient's SNF can provide patient 1 mg/kg Lovenox injections, but when patient is nearing the time she is going to leave SNF and go to assisted living, then her physicians outpatient BEFORE patient leaves SNF will have to decide either to stop
Primidone (which is not working well for patient's tremors anyway) and switch her from Lovenox to Eliquis/Xarelto OR keep Primidone and switch Lovenox and start Coumadin with bridging
#Elevated Troponin Secondary to Type II TN demand ischemia
# Anemia of chronic disease
-No active bleeding
-Continue to monitor
# Transaminitis - RESOLVED
-Suspected secondary to hypotension
-AST 46, ALT 39, ALK 143
-Denied abdominal pain
-Continue to monitor
# Hypotension secondary to the PE above
-Improved with PE treatment
-Never required vasopressors
#Recent left distal tib shaft fracture
-s/p IMN
-left LE edema, wrapped in ESAU
-Monitor for bleeding
-[facility] and said she is due to have her betty out of her leg on 10/17/24 and asked if we could do it while she is here - betty removed by ortho on 10/17/24
-NWB LLE. Ambulate with assistive device.
-PT/OT- prevent equinus contracture- consider CAM or night splint.
-[place] were removed and Steri-Strips were reapplied. Esau wrap was applied to left lower extremity for edema control. Local wound care was discussed.
-Continue with pain management as needed.
-Elevation and ice to help with swelling.
-Patient already getting anticoagulation for PE which will provide DVT prophylaxis
-Follow-up in 1-2 weeks as outpatient with Dr. Arvizu for radiographic and clinical evaluation.
#Left proximal fibula fracture
-On admission, this was noted to be amenable to nonoperative treatment.
#History of Seizures
� Continue lamotrigine, Keppra, Primidone
#Hyperlipidemia
Continue statin
#Hypertension
�hold lisinopril due to hypotension
#Morbid Obesity
#DVT ppx
-heparin
#CODe status
-full code
Anticipated Discharge: Within 24 hours
Subjective/Interval History
-
Date of Service: October 17, 2024
Patient was seen and examined. She denied any chest pain, shortness of breath or any other complaints.
Objective Data
-
Labs:
Laboratory Results
10/17/24 10/17/24 10/17/24
04:29 08:04 15:15
WBC 3.9 L
Hgb 9.7 L
Hct 31.1 L
Plt Count 302
APTT 66.5 H Pending
Sodium 139
Potassium 4.2
Chloride 109 H
Carbon Dioxide 23
BUN 5 L
Creatinine 0.6
Glucose 90
Calcium 8.8
Vital Signs:
Vital Signs
Temp Pulse Resp BP Pulse Ox
98.0 F 85 21 132/64 96
10/17/24 11:30 10/17/24 12:00 10/17/24 12:00 10/17/24 12:00 10/17/24 12:00
I&O
10/16/24 10/17/24 10/18/24
06:59 06:59 06:59
Intake Total 480 / 480
Output Total 350 / 350 2350 / 2350
Balance -350 / -350 -1870 / -1870
[2024-10-17 15:39] LABS: APTT 106.6 Sec (23.4-35.0)
--- NOTE | 2024-10-17 15:48 | W.PN.UPDATE ---
Update Note
Progress Note Update
69-year-old female 3 weeks s/p left tibia IMN under the direction of Dr. Arvizu.
- NWB LLE. Ambulate with assistive device.
- PT/OT- prevent equinus contracture- consider CAM or night splint.
- [place] were removed and Steri-Strips were reapplied. Esau wrap was applied to left lower extremity for edema control. Local wound care was discussed.
- Continue with pain management as needed.
- Recommend elevation and ice to help with swelling.
- DVT prophylaxis per primary team.
- Follow-up in 1-2 weeks as outpatient for radiographic and clinical evaluation. All questions were answered.
--- NOTE | 2024-10-17 16:15 | PTCARENOTE ---
Assessment and care as documented. Heparin gtt infusing as ordered, see intervention. Q2T maintained. Pt ringing appropriately, call christensen within reach.
--- NOTE | 2024-10-17 16:33 | CM ---
Patient from [facility] with Hx Recent left distal tibial fracture s/p repair, Left proximal fibula fracture. Room air. Receiving Heparin gtt.
Spoke with [facility]; they can only accept the patient until 7pm. The for report [phone], fax [phone].
Spoke with [facility]; there are no available ambulances today by 6:30pm.
Request from Dr Hendricks to find out if [facility] can do Lovenox injections; informed him that [facility] can do Lovenox injections however [facility] cannot. Clarified for that cannot see the patient daily for Lovenox
injections. He plans on discharging the patient back to [facility] tomorrow.
Spoke with Samantha Terry, [facility]; they cannot accept the patient back on Lovenox injections.
Plan [facility] tomorrow by ambulance.
[2024-10-17] MEDS: MYSOLINE 500 MG PO (21:04)
[2024-10-17] MEDS: LIPITOR 10 MG PO (21:04)
[2024-10-17 22:40] LABS: APTT 91.3 Sec (23.4-35.0)
[2024-10-18] VITALS (8 sets, daily range): BP systolic 107–153; BP diastolic 58–105; PULSE 75–82; O2SAT 93; BMI 43.2
--- NOTE | 2024-10-18 01:08 | PTCARENOTE ---
Pt maintained on heparin gtt, see worklist documentation. Denies complaints at this time. Pt has not had documented BM in 3d, CLIENT SUPPORT COORDINATOR notified. Pt does feel urge to have BM at times, but is unable when she tries to use BP. VSS 96% on RA. PW in place
for incontinence. Call christensen within reach.
[2024-10-18] MEDS: HEPARIN 25000 UNITS/250 ML IV (03:42)
[2024-10-18 04:12] LABS: Hematocrit 31.7 % (37.0-47.0); Hemoglobin 10.3 g/dL (12.0-16.0); Mean Corp Hgb Conc. 32.5 g/dL (33.0-37.0); Mean Corpuscular Hgb 34.9 pg (27.0-31.0); Mean Corpuscular Volume 107.5 fL (81.0-99.0); Platelet Count 270 10^3/uL (130-400); Red Blood Cell Count 2.95 10^6/uL (4.20-5.40); Red Cell Dist. Width 14.2 % (11.5-14.5); White Blood Cell Count 4.8 10^3/uL (4.8-10.8)
[2024-10-18 04:29] LABS: APTT 123.1 Sec (23.4-35.0)
[2024-10-18 04:44] LABS: Blood Urea Nitrogen 4 mg/dl (7-17); Calcium 8.8 mg/dl (8.4-10.2); Carbon Dioxide 24 mmol/L (22-30); Chloride 108 mmol/L (98-107); Estimated Creatinine Clearance 96 ml/min; Glucose 98 mg/dl (70-99); Potassium 3.9 mmol/L (3.5-5.1); Sodium 141 mmol/L (135-145); eGFR > 60.00
[2024-10-18] MEDS: DULCOLAX 10 MG RECTAL (06:30)
--- NOTE | 2024-10-18 06:37 | PTCARENOTE ---
Rectal dulcolax given per DEC.
--- NOTE | 2024-10-18 09:05 | PN.CDI ---
CDI
- -
CDI:
Physician Documentation Request
Admit Date: 10/13/24 14:32
Dear Doctor Ruthie,
Patient admitted with saddle pulmonary embolism with cor pulmonale.
Patient had recent fall complicated by acute left distal tibia shaft fracture s/p removal of hardware and left tibial intramedullary nail (performed 09/27/2024)
Please clarify if a relationship exist between these conditions:
Yes, pulmonary embolism is related to/associated with/due to/exacerbated by recent ortho surgery 09/27.
No, pulmonary embolism is not related to/associated with/due to/exacerbated by recent ortho surgery 09/27
Unable to determine
Use of terms such as suspected, likely, concern for, or probable (associated with a specific diagnosis that is being evaluated, monitored, or treated as if it exists) are acceptable and can be coded in the inpatient setting, when documented at the
time of discharge.
Thank you,
Regina Eagle RN, BSN
CDI Specialist
tiger text
Please use your independent medical judgment in providing your response.
[2024-10-18] MEDS: DIAMOX 250 MG PO (09:35)
[2024-10-18] MEDS: MYSOLINE 250 MG PO (09:35)
[2024-10-18] MEDS: KEPPRA 1500 MG PO (09:35)
[2024-10-18] MEDS: TESSALON PERLES 100 MG PO ×2 (09:35→16:27)
[2024-10-18] MEDS: NEURONTIN 800 MG PO ×2 (09:35→16:27)
[2024-10-18] MEDS: LAMICTAL 200 MG PO (09:35)
--- NOTE | 2024-10-18 09:54 | W.PN.HOSP.TC ---
Today's Communication/Plan
-
Discharge today
Assessment / Plan
Assessment / Plan
Physical Exam
General: Well Developed, Well Nourished and No Apparent Distress
HEENT: Normocephalic
Respiratory: CTAB. Saturating oxygen well on room air.
Cardiac: S1/S2 and Regular Rhythm
GI: Soft, Non Tender, Non Distended and Normal Bowel Sounds
Musculoskeletal: No Cyanosis
Skin: Rash and Other (left LE wrapped in esau. noted very swollen)
Neuro: AAO x 3 and Nonfocal/grossly intact
Psych: Calm
Assessment/Plan
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
#Possible that pulmonary embolism is related to/associated with/due to/exacerbated by recent ortho surgery 09/27/24
#Acute Hypoxic Respiratory Failure Secondary to the Above
-PERT alert was called in the ED
-Status post Heparin Drip, switch to Lovenox 1mg/kg Q12H
-Pulmonology consulted
-Chest x-ray with no acute disease of the chest. Moderate elevation of direct hemidiaphragm from chest CT pending
-Duplex LE ultrasound with no DVT and ECHO with severely dilated right atrium and severely enlarged right ventricular size.
-Increase activity as able
-Will need repeat echocardiogram in 3 months
-Eliquis and Xarelto and Coumadin interact with patient's Primidone (which is for tremors) -- Primidone can reduce the levels of those medications; consulted hematology given patient had a saddle PE, and best alternative regimen seems to be Lovenox
subq
-Patient's SNF can provide patient 1 mg/kg Lovenox injections, but when patient is nearing the time she is going to leave SNF and go to assisted living, then her physicians outpatient BEFORE patient leaves SNF will have to decide either to stop
Primidone (which is not working well for patient's tremors anyway) and switch her from Lovenox to Eliquis/Xarelto OR keep Primidone and switch Lovenox and start Coumadin with bridging
#Elevated Troponin Secondary to Type II [place] demand ischemia
# Anemia of chronic disease
-No active bleeding
-Continue to monitor
# Transaminitis - RESOLVED
-Suspected secondary to hypotension
-AST 46, ALT 39, ALK 143
-Denied abdominal pain
-Continue to monitor
# Hypotension secondary to the PE above
-Improved with PE treatment
-Never required vasopressors
#Recent left distal tib shaft fracture
-s/p IMN
-left LE edema, wrapped in ESAU
-Monitor for bleeding
-The long-term called and said she is due to have her betty out of her leg on 10/17/24 and asked if we could do it while she is here - betty removed by ortho on 10/17/24
-NWB LLE. Ambulate with assistive device.
-PT/OT- prevent equinus contracture- consider CAM or night splint.
-[place] were removed and Steri-Strips were reapplied. Esau wrap was applied to left lower extremity for edema control. Local wound care was discussed.
-Continue with pain management as needed.
-Elevation and ice to help with swelling.
-Patient already getting anticoagulation for PE which will provide DVT prophylaxis
-Follow-up in 1-2 weeks as outpatient with Dr. Arvizu for radiographic and clinical evaluation.
#Constipation
-Needs Miralax
#Left proximal fibula fracture
-On admission, this was noted to be amenable to nonoperative treatment.
#History of Seizures
� Continue lamotrigine, Keppra, Primidone
#Hyperlipidemia
Continue statin
#Hypertension
�hold lisinopril due to hypotension
#Morbid Obesity
#DVT ppx
-heparin
#CODe status
-full code
More than 30 minutes spent in discharge including
Final examination of the patient
Summarizing hospital stay
Instructions for continuing care to all relevant caregivers
Preparation of discharge records, prescriptions, and referral forms
Total time spent (in minutes): 40
Anticipated Discharge: Today
Subjective/Interval History
-
Date of Service: October 18, 2024
Patient was seen and examined. She denied any chest pain, shortness of breath or any other symptoms or complaints.
Objective Data
-
Labs:
Laboratory Results
10/17/24 10/18/24 10/18/24
22:16 04:02 10:30
WBC 4.8
Hgb 10.3 L
Hct 31.7 L
Plt Count 270
APTT 91.3 H 123.1 H Pending
Sodium 141
Potassium 3.9
Chloride 108 H
Carbon Dioxide 24
BUN 4 L
Creatinine 0.5 L
Glucose 98
Calcium 8.8
Vital Signs:
Vital Signs
Temp Pulse Resp BP Pulse Ox
98.7 F 63 19 108/58 94
10/18/24 07:52 10/18/24 06:00 10/18/24 06:00 10/18/24 02:00 10/18/24 06:00
I&O
10/17/24 10/18/24 10/19/24
06:59 06:59 06:59
Intake Total 480 / 480
Output Total 2350 / 2350 800 / 800
Balance -1870 / -1870 -800 / -800
[2024-10-18] MEDS: CITROMA 300 ML PO (10:24)
[2024-10-18] MEDS: LOVENOX 100 MG SC (10:25)
--- NOTE | 2024-10-18 10:31 | PTCARENOTE ---
Per Pt, no BM x4 days. Suppository administered by shift superintendent caustic cresylate RN without success. Dr. Hendricks notified, order for mag citrate received. Pt educated and medication administered. Order received to d/c heparin gtt and begin Lovenox injections. Gtt
stop and first injection administered, see MAR/heparin intervention.
--- NOTE | 2024-10-18 13:28 | PTCARENOTE ---
Addendum entered by Johanna Rosario 10/18/24 15:39:
Pt incontinent of large liquid bowel movement. and CM made aware. Pt now for d/c later today.
Addendum entered by Johanna Rosario 10/18/24 13:51:
Pt to XR via stretcher.
Original Note:
Pt still without BM. Dr. Hendricks notified. Pt now for abd XR. Awaiting call from department.
--- NOTE | 2024-10-18 17:18 | CM ---
Patient from [facility] with Hx Recent left distal tibial fracture s/p repair, Left proximal fibula fracture. Room air. Receiving Lovenox SQ injections. PT/OT recommend skilled rehab.
Spoke with [facility]; they are able to accept the patient today. The for report [phone], fax [phone].
Met with patient and spoke with her daughter ARNOLD Hummel; both agree to d/c today back to [facility]. IMM completed.
Plan [facility] today by ambulance.
--- NOTE | 2024-10-18 17:51 | PTCARENOTE ---
Pt for d/c to [facility]. Report called to receiving RN. Belongings collected from room. IV's and monitor equipment removed. D/c via EMS.
== END 2024-10-18 18:13 | DRG 270 ==
LOC: IMU 14:32
PROVIDERS: Radiology Vascular & Interventional Radiology; Registered Nurse; ADMITTING PHYSICIAN Internal Medicine; ATTENDING PHYSICIAN Hospitalist; CONSULT PHYSICIAN Internal Medicine Critical Care Medicine; EMERGENCY PHYSICIAN Emergency Medicine; FAMILY PHYSICIAN Family Medicine; OTHER PHYSICIAN Internal Medicine Hematology & Oncology
PROC: 02CR3ZZ Extirpation of Matter from Left Pulmonary Artery, Percutaneous Approach (ICD-10-PCS; 2024-10-13)
DX: T81.718A Complication of other artery following a procedure, not elsewhere classified, initial encounter (principal); I21.A1 Myocardial infarction type 2; I26.02 Saddle embolus of pulmonary artery with acute cor pulmonale; J96.01 Acute respiratory failure with hypoxia; E87.20 Acidosis, unspecified; Z68.41 Body mass index [BMI] 40.0-44.9, adult; I95.89 Other hypotension; D63.8 Anemia in other chronic diseases classified elsewhere; D75.839 Thrombocytosis, unspecified; Z87.891 Personal history of nicotine dependence; Z79.82 Long term (current) use of aspirin; Z74.01 Bed confinement status; Z79.01 Long term (current) use of anticoagulants; E78.00 Pure hypercholesterolemia, unspecified; I10 Essential (primary) hypertension; E66.01 Morbid (severe) obesity due to excess calories
CPT/HCPCS: 36015; 36620; 37184; 71045; 71275; 74019; 75743; 76937; 80048; 80053; 80175; 80177; 83735; 83880; 84484; 85025; 85027; 85610; 85730; 87040; 87070; 87502; 87811; 93005; 93306; 93970; 96361; 96374; 97110; 97163; 97167; 97530; 97535; 99291; Q9967

== ENCOUNTER → 2024-10-23 10:15 | Outpatient (REF) | payer OTHER, MEDICARE, BC, SELFPAY ==
[2024-10-23 11:03] LABS: Hematocrit 34.4 % (37.0-47.0); Hemoglobin 10.3 g/dL (12.0-16.0); Mean Corp Hgb Conc. 29.9 g/dL (33.0-37.0); Mean Corpuscular Volume 113.5 fL (81.0-99.0); Mean Platelet Volume 11.5 fL (7.4-10.4); Platelet Count 229 10^3/uL (130-400); Red Blood Cell Count 3.03 10^6/uL (4.20-5.40); Red Cell Dist. Width 14.4 % (11.5-14.5); White Blood Cell Count 3.2 10^3/uL (4.8-10.8)
[2024-10-23 11:17] LABS: ALT (SGPT) 37 U/L (0-35); AST (SGOT) 62 U/L (14-36); Albumin 3.4 g/dl (3.5-5.0); Alkaline Phosphatase 101 U/L (38-126); Blood Urea Nitrogen 9 mg/dl (7-17); Carbon Dioxide 27 mmol/L (22-30); Chloride 104 mmol/L (98-107); Glucose 82 mg/dl (70-99); Magnesium 1.9 mg/dl (1.6-2.3); Potassium 4.5 mmol/L (3.5-5.1); Sodium 139 mmol/L (135-145); Total Bilirubin 0.4 mg/dl (0.2-1.3); Total Protein 6.6 g/dl (6.3-8.2); eGFR > 60.00
== END ==
LOC: OLABWHC 10:15
PROVIDERS: ATTENDING PHYSICIAN Family Medicine
DX: I26.09 Other pulmonary embolism with acute cor pulmonale (principal); D64.9 Anemia, unspecified; E78.5 Hyperlipidemia, unspecified
CPT/HCPCS: 36415; 80053; 83735; 85027

== ENCOUNTER → 2024-11-20 09:39 | Outpatient (REF) | payer OTHER, MEDICARE, BC, SELFPAY ==
[2024-11-20 11:17] LABS: Hematocrit 36.9 % (37.0-47.0); Hemoglobin 11.4 g/dL (12.0-16.0); Mean Corp Hgb Conc. 30.9 g/dL (33.0-37.0); Mean Corpuscular Hgb 34.2 pg (27.0-31.0); Mean Corpuscular Volume 110.8 fL (81.0-99.0); Mean Platelet Volume 12.4 fL (7.4-10.4); Platelet Count 139 10^3/uL (130-400); Red Blood Cell Count 3.33 10^6/uL (4.20-5.40); Red Cell Dist. Width 12.5 % (11.5-14.5); White Blood Cell Count 3.5 10^3/uL (4.8-10.8)
[2024-11-20 11:54] LABS: Blood Urea Nitrogen 8 mg/dl (7-17); Calcium 9.4 mg/dl (8.4-10.2); Carbon Dioxide 25 mmol/L (22-30); Chloride 105 mmol/L (98-107); Glucose 84 mg/dl (70-99); Potassium 4.2 mmol/L (3.5-5.1); Sodium 139 mmol/L (135-145); eGFR > 60.00
== END ==
LOC: OLABWHC 09:39
PROVIDERS: ATTENDING PHYSICIAN Family Medicine
DX: Z87.898 Personal history of other specified conditions (principal)
CPT/HCPCS: 36415; 80048; 85027

== ENCOUNTER → 2024-11-28 11:09 | Outpatient (REF) | payer OTHER, MEDICARE, BC, SELFPAY ==
[2024-11-28 12:00] LABS: Urine Albumin 1+ (Neg - Trace); Urine Bilirubin Negative (Negative); Urine Character Clear (Clear); Urine Color Yellow; Urine Glucose Negative (Negative); Urine Ketone Negative (Negative); Urine Leukocyte Negative (Negative); Urine Nitrite Negative (Negative); Urine Occult Blood Negative (Negative); Urine Urobilinogen Negative (Neg - 1+)
[2024-11-28 12:24] LABS: Urine Bacteria Few (Negative); Urine Red Blood Cell 0-2 /HPF (0-2); Urine Squamous Cell 16-20 /LPF (Few); Urine White Cell 0-2 /HPF (0-5)
== END ==
LOC: OLABWHC 11:09
PROVIDERS: ATTENDING PHYSICIAN Family Medicine
DX: N39.0 Urinary tract infection, site not specified (principal); D64.9 Anemia, unspecified; I10 Essential (primary) hypertension
CPT/HCPCS: 81003; 81015; 87086

== ENCOUNTER → 2024-12-22 09:25 | Outpatient (REF) | payer OTHER, MEDICARE, BC, SELFPAY ==
[2024-12-22 11:18] LABS: INR 1.11; PT 14.6 Sec (11.4-14.6)
== END ==
LOC: OLABWHC 09:25
PROVIDERS: ATTENDING PHYSICIAN Family Medicine
DX: I26.09 Other pulmonary embolism with acute cor pulmonale (principal); Z79.01 Long term (current) use of anticoagulants
CPT/HCPCS: 36415; 85610

== ENCOUNTER → 2024-12-25 09:30 | Outpatient (REF) | payer OTHER, MEDICARE, BC, SELFPAY ==
[2024-12-25 12:53] LABS: INR 1.23; PT 15.8 Sec (11.4-14.6)
== END ==
LOC: OLABWHC 09:30
PROVIDERS: ATTENDING PHYSICIAN Family Medicine
DX: Z79.01 Long term (current) use of anticoagulants (principal)
CPT/HCPCS: 36415; 85610

== ENCOUNTER → 2024-12-28 09:14 | Outpatient (REF) | payer OTHER, MEDICARE, BC, SELFPAY ==
[2024-12-28 11:27] LABS: INR 1.41; PT 17.8 Sec (11.4-14.6)
[2024-12-28 11:28] LABS: APTT 37.6 Sec (23.4-35.0)
== END ==
LOC: OLABWHC 09:14
PROVIDERS: ATTENDING PHYSICIAN Family Medicine
DX: I26.09 Other pulmonary embolism with acute cor pulmonale (principal); Z79.01 Long term (current) use of anticoagulants; D64.9 Anemia, unspecified
CPT/HCPCS: 36415; 85610; 85730

== ENCOUNTER → 2025-01-01 08:30 | Outpatient (REF) | payer OTHER, MEDICARE, BC, SELFPAY ==
[2025-01-01 09:11] LABS: INR 1.63; PT 19.6 Sec (11.4-14.6)
== END ==
LOC: OLABWHC 08:30
PROVIDERS: ATTENDING PHYSICIAN Family Medicine
DX: Z79.01 Long term (current) use of anticoagulants (principal); I26.09 Other pulmonary embolism with acute cor pulmonale
CPT/HCPCS: 36415; 85610

== ENCOUNTER → 2025-01-04 12:23 | Outpatient (REF) | payer MEDICARE, BC, SELFPAY ==
[2025-01-04 12:55] LABS: INR 1.47; PT 18.3 Sec (11.4-14.6)
== END ==
LOC: OLABWHC 12:23
PROVIDERS: ATTENDING PHYSICIAN Family Medicine
DX: Z79.01 Long term (current) use of anticoagulants (principal)
CPT/HCPCS: 36415; 85610

== ENCOUNTER → 2025-01-08 11:58 | Outpatient (REF) | payer MEDICARE, BC, SELFPAY ==
[2025-01-08 13:01] LABS: INR 2.72; PT 28.8 Sec (11.4-14.6)
== END ==
LOC: OLABWHC 11:58
PROVIDERS: ATTENDING PHYSICIAN Family Medicine
DX: Z79.01 Long term (current) use of anticoagulants (principal); I26.09 Other pulmonary embolism with acute cor pulmonale
CPT/HCPCS: 36415; 85610

== ENCOUNTER → 2025-01-09 10:41 | Outpatient (REF) | payer MEDICARE, BC, SELFPAY ==
[2025-01-09 11:09] LABS: PT 29.5 Sec (11.4-14.6)
== END ==
LOC: OLABWHC 10:41
PROVIDERS: ATTENDING PHYSICIAN Family Medicine
DX: I26.09 Other pulmonary embolism with acute cor pulmonale (principal); Z79.01 Long term (current) use of anticoagulants
CPT/HCPCS: 36415; 85610

== ENCOUNTER → 2025-01-12 10:17 | Outpatient (REF) | payer MEDICARE, BC, SELFPAY ==
[2025-01-12 11:34] LABS: INR 2.59; PT 27.7 Sec (11.4-14.6)
== END ==
LOC: OLABWHC 10:17
PROVIDERS: ATTENDING PHYSICIAN Family Medicine
DX: I26.09 Other pulmonary embolism with acute cor pulmonale (principal); Z79.01 Long term (current) use of anticoagulants; D64.9 Anemia, unspecified
CPT/HCPCS: 36415; 85610

== ENCOUNTER → 2025-01-17 09:35 | Outpatient (REF) | payer OTHER, MEDICARE, BC, SELFPAY ==
[2025-01-17 11:35] LABS: Hematocrit 33.8 % (37.0-47.0); Hemoglobin 10.9 g/dL (12.0-16.0); Mean Corp Hgb Conc. 32.2 g/dL (33.0-37.0); Mean Corpuscular Hgb 33.6 pg (27.0-31.0); Mean Corpuscular Volume 104.3 fL (81.0-99.0); Mean Platelet Volume 11.8 fL (7.4-10.4); Platelet Count 150 10^3/uL (130-400); Red Blood Cell Count 3.24 10^6/uL (4.20-5.40); Red Cell Dist. Width 12.4 % (11.5-14.5); White Blood Cell Count 3.8 10^3/uL (4.8-10.8)
[2025-01-17 11:42] LABS: INR 1.88; PT 22.1 Sec (11.4-14.6)
[2025-01-17 12:00] LABS: Albumin 3.4 g/dl (3.5-5.0); Carbon Dioxide 26 mmol/L (22-30); Chloride 109 mmol/L (98-107); Potassium 4.6 mmol/L (3.5-5.1); Sodium 141 mmol/L (135-145); Total Bilirubin 0.3 mg/dl (0.2-1.3); Total Protein 6.7 g/dl (6.3-8.2); eGFR > 60.00
[2025-01-17 12:10] LABS: ALT (SGPT) 13 U/L (0-35); AST (SGOT) 17 U/L (14-36); Alkaline Phosphatase 85 U/L (38-126); Blood Urea Nitrogen 16 mg/dl (7-17); Calcium 9.8 mg/dl (8.4-10.2); Glucose 83 mg/dl (70-99)
[2025-01-17 12:16] LABS: Vitamin D, 25-OH*** 30.2 ng/mL (30-80)
[2025-01-17 12:49] LABS: Vitamin B12 629 pg/ml (239-931)
[2025-01-18 21:46] LABS: Keppra (Levetiracetam) 36 ug/mL (10-40); Lamotrigine (Lamictal) 6.5 ug/mL (3.0-15.0)
== END ==
LOC: OLABWHC 09:35
PROVIDERS: ATTENDING PHYSICIAN Family Medicine
DX: G40.909 Epilepsy, unspecified, not intractable, without status epilepticus (principal); I26.09 Other pulmonary embolism with acute cor pulmonale; Z79.01 Long term (current) use of anticoagulants; Z79.02 Long term (current) use of antithrombotics/antiplatelets; Z79.899 Other long term (current) drug therapy
CPT/HCPCS: 36415; 80053; 80175; 80177; 82306; 82607; 85027; 85610

== ENCOUNTER → 2025-01-19 09:49 | Outpatient (REF) | payer OTHER, MEDICARE, BC, SELFPAY ==
[2025-01-19 11:01] LABS: PT 23.7 Sec (11.4-14.6)
== END ==
LOC: OLABWHC 09:49
PROVIDERS: ATTENDING PHYSICIAN Family Medicine
DX: I26.09 Other pulmonary embolism with acute cor pulmonale (principal); Z79.01 Long term (current) use of anticoagulants; I26.02 Saddle embolus of pulmonary artery with acute cor pulmonale
CPT/HCPCS: 36415; 85610

== ENCOUNTER → 2025-01-24 11:22 | Outpatient (REF) | payer MEDICARE, BC, SELFPAY | LOC: OLABWPC 11:22 | PROVIDERS: ATTENDING PHYSICIAN Family Medicine | DX: I26.09 Other pulmonary embolism with acute cor pulmonale (principal) | CPT/HCPCS: 36415; 85610 ==

== ENCOUNTER → 2025-01-29 11:09 | Outpatient (REF) | payer MEDICARE, BC, SELFPAY ==
[2025-01-29 11:26] LABS: INR 2.43; PT 26.5 Sec (11.4-14.6)
== END ==
LOC: OLABWPC 11:09
PROVIDERS: ATTENDING PHYSICIAN Family Medicine
DX: I26.09 Other pulmonary embolism with acute cor pulmonale (principal)
CPT/HCPCS: 36415; 85610

== ENCOUNTER → 2025-02-05 11:48 | Outpatient (REF) | payer MEDICARE, BC, SELFPAY ==
[2025-02-05 12:43] LABS: INR 3.93; PT 38.1 Sec (11.4-14.6)
== END ==
LOC: OLABWPC 11:48
PROVIDERS: ATTENDING PHYSICIAN Family Medicine
DX: I26.09 Other pulmonary embolism with acute cor pulmonale (principal)
CPT/HCPCS: 36415; 85610

== ENCOUNTER → 2025-02-09 09:28 | Outpatient (REF) | payer MEDICARE, BC, SELFPAY ==
[2025-02-09 11:13] LABS: PT 29.5 Sec (11.4-14.6)
== END ==
LOC: OLABWPC 09:28
PROVIDERS: ATTENDING PHYSICIAN Family Medicine
DX: I26.09 Other pulmonary embolism with acute cor pulmonale (principal); I21.A1 Myocardial infarction type 2
CPT/HCPCS: 36415; 85610

== ENCOUNTER → 2025-02-16 09:48 | Outpatient (REF) | payer MEDICARE, BC, SELFPAY ==
[2025-02-16 10:39] LABS: INR 3.55; PT 35.3 Sec (11.4-14.6)
== END ==
LOC: OLABWPC 09:48
PROVIDERS: ATTENDING PHYSICIAN Family Medicine
DX: I26.09 Other pulmonary embolism with acute cor pulmonale (principal)
CPT/HCPCS: 36415; 85610

== ENCOUNTER → 2025-02-20 10:35 | Outpatient (REF) | payer MEDICARE, BC, SELFPAY ==
[2025-02-20 11:23] LABS: INR 1.68
== END ==
LOC: OLABWPC 10:35
PROVIDERS: ATTENDING PHYSICIAN Family Medicine
DX: I26.09 Other pulmonary embolism with acute cor pulmonale (principal)
CPT/HCPCS: 36415; 85610

== ENCOUNTER → 2025-02-22 11:44 | Outpatient (REF) | payer MEDICARE, BC, SELFPAY | LOC: HWRAD 11:44 | PROVIDERS: ATTENDING PHYSICIAN Physician Assistant Surgical | DX: M25.572 Pain in left ankle and joints of left foot (principal) | CPT/HCPCS: 73700 ==

== ENCOUNTER → 2025-02-27 12:21 | Outpatient (REF) | payer MEDICARE, BC, SELFPAY ==
[2025-02-27 12:58] LABS: INR 1.98
== END ==
LOC: OLABWPC 12:21
PROVIDERS: ATTENDING PHYSICIAN Family Medicine
DX: I26.09 Other pulmonary embolism with acute cor pulmonale (principal)
CPT/HCPCS: 36415; 85610

== ENCOUNTER → 2025-03-06 09:25 | Outpatient (REF) | payer MEDICARE, BC, SELFPAY ==
[2025-03-06 11:53] LABS: INR 2.48; PT 26.9 Sec (11.4-14.6)
== END ==
LOC: OLABWPC 09:25
PROVIDERS: ATTENDING PHYSICIAN Family Medicine
DX: I26.09 Other pulmonary embolism with acute cor pulmonale (principal)
CPT/HCPCS: 36415; 85610

== ENCOUNTER → 2025-03-13 11:33 | Outpatient (REF) | payer MEDICARE, BC, SELFPAY ==
[2025-03-13 12:24] LABS: INR 2.17; PT 24.3 Sec (11.4-14.6)
== END ==
LOC: OLABWPC 11:33
PROVIDERS: ATTENDING PHYSICIAN Family Medicine
DX: I26.09 Other pulmonary embolism with acute cor pulmonale (principal)
CPT/HCPCS: 36415; 85610

== ENCOUNTER → 2025-03-20 08:29 | Outpatient (REF) | payer MEDICARE, BC, SELFPAY ==
[2025-03-20 11:16] LABS: INR 2.48; PT 26.9 Sec (11.4-14.6)
== END ==
LOC: OLABWPC 08:29
PROVIDERS: ATTENDING PHYSICIAN Family Medicine
DX: I26.09 Other pulmonary embolism with acute cor pulmonale (principal)
CPT/HCPCS: 36415; 85610

== ENCOUNTER → 2025-04-03 08:35 | Outpatient (REF) | payer MEDICARE, BC, SELFPAY ==
[2025-04-03 10:15] LABS: INR 3.19; PT 32.5 Sec (11.4-14.6)
== END ==
LOC: OLABWHC 08:35
PROVIDERS: ATTENDING PHYSICIAN Family Medicine
DX: I26.09 Other pulmonary embolism with acute cor pulmonale (principal)
CPT/HCPCS: 36415; 85610

== ENCOUNTER → 2025-04-12 10:58 | Outpatient (REF) | payer MEDICARE, BC, SELFPAY ==
[2025-04-12 11:53] LABS: Hematocrit 34.7 % (37.0-47.0); Hemoglobin 11.4 g/dL (12.0-16.0); Mean Corp Hgb Conc. 32.9 g/dL (33.0-37.0); Mean Corpuscular Volume 107.4 fL (81.0-99.0); Nucleated Red Blood Cells % 0 %; Platelet Count 148 10^3/uL (130-400); Red Cell Dist. Width 13.0 % (11.5-14.5)
[2025-04-12 12:13] LABS: ALT (SGPT) 14 U/L (0-35); AST (SGOT) 17 U/L (14-36); Albumin 3.7 g/dl (3.5-5.0); Alkaline Phosphatase 79 U/L (38-126); Blood Urea Nitrogen 13 mg/dl (7-17); Calcium 9.4 mg/dl (8.4-10.2); Carbon Dioxide 23 mmol/L (22-30); Chloride 111 mmol/L (98-107); Glucose 78 mg/dl (70-99); HDL Cholesterol 61 mg/dl; LDL Cholesterol, Calculated 92 mg/dl; Potassium 4.2 mmol/L (3.5-5.1); Sodium 141 mmol/L (135-145); Total Protein 6.7 g/dl (6.3-8.2); Very Low Density Lipoprotein 23 mg/dl (0-30); eGFR > 60.00
[2025-04-12 12:15] LABS: Glycohemoglobin (HgbA1c) 5.2 % (4.0-5.6)
[2025-04-12 12:30] LABS: Vitamin D, 25-OH*** 31.6 ng/mL (30-80)
[2025-04-14 09:38] LABS: Free Kappa Light Chains,Quant 31.75 mg/L (3.30-19.40); Free Lambda Light Chains,Quant 17.76 mg/L (5.71-26.30); Kappa/Lambda Fr Light Ratio 1.79 (0.26-1.65)
== END ==
LOC: OLABWHC 10:58
PROVIDERS: ATTENDING PHYSICIAN Family Medicine
DX: G40.909 Epilepsy, unspecified, not intractable, without status epilepticus (principal); H40.9 Unspecified glaucoma; I21.A1 Myocardial infarction type 2; Z79.899 Other long term (current) drug therapy
CPT/HCPCS: 36415; 80053; 80061; 80175; 82306; 83036; 83521; 84439; 84443; 85025

== ENCOUNTER → 2025-04-17 10:28 | Outpatient (REF) | payer MEDICARE, BC, SELFPAY ==
[2025-04-17 11:52] LABS: INR 2.35; PT 25.8 Sec (11.4-14.6)
== END ==
LOC: OLABWPC 10:28
PROVIDERS: ATTENDING PHYSICIAN Family Medicine
DX: I26.09 Other pulmonary embolism with acute cor pulmonale (principal)
CPT/HCPCS: 36415; 85610

== ENCOUNTER → 2025-05-01 08:53 | Outpatient (REF) | payer MEDICARE, BC, SELFPAY ==
[2025-05-01 09:59] LABS: INR 1.72; PT 20.3 Sec (11.4-14.6)
== END ==
LOC: OLABWHC 08:53
PROVIDERS: ATTENDING PHYSICIAN Family Medicine
DX: I26.09 Other pulmonary embolism with acute cor pulmonale (principal)
CPT/HCPCS: 36415; 85610

== ENCOUNTER → 2025-05-08 10:41 | Outpatient (REF) | payer MEDICARE, BC, SELFPAY ==
[2025-05-08 11:44] LABS: INR 1.75; PT 20.9 Sec (11.4-14.6)
== END ==
LOC: OLABWPC 10:41
PROVIDERS: ATTENDING PHYSICIAN Family Medicine
DX: I26.09 Other pulmonary embolism with acute cor pulmonale (principal)
CPT/HCPCS: 36415; 85610

== ENCOUNTER → 2025-05-15 11:04 | Outpatient (REF) | payer MEDICARE, BC, SELFPAY ==
[2025-05-15 12:11] LABS: INR 1.71; PT 20.3 Sec (11.4-14.6)
== END ==
LOC: OLABWPC 11:04
PROVIDERS: ATTENDING PHYSICIAN Family Medicine
DX: I26.09 Other pulmonary embolism with acute cor pulmonale (principal)
CPT/HCPCS: 36415; 85610

== ENCOUNTER → 2025-05-22 09:29 | Outpatient (REF) | payer MEDICARE, BC, SELFPAY ==
[2025-05-22 10:59] LABS: INR 2.14; PT 24.0 Sec (11.4-14.6)
== END ==
LOC: OLABWPC 09:29
PROVIDERS: ATTENDING PHYSICIAN Family Medicine
DX: I26.09 Other pulmonary embolism with acute cor pulmonale (principal)
CPT/HCPCS: 85610

== ENCOUNTER → 2025-05-29 11:17 | Outpatient (REF) | payer MEDICARE, BC, SELFPAY ==
[2025-05-29 12:31] LABS: INR 1.67; PT 19.9 Sec (11.4-14.6)
== END ==
LOC: OLABWPC 11:17
PROVIDERS: ATTENDING PHYSICIAN Family Medicine
DX: I26.09 Other pulmonary embolism with acute cor pulmonale (principal)
CPT/HCPCS: 36415; 85610

== ENCOUNTER → 2025-06-05 11:00 | Outpatient (REF) | payer MEDICARE, BC, SELFPAY ==
[2025-06-05 13:31] LABS: INR 2.01; PT 22.9 Sec (11.4-14.6)
== END ==
LOC: OLABWPC 11:00
PROVIDERS: ATTENDING PHYSICIAN Family Medicine
DX: I26.09 Other pulmonary embolism with acute cor pulmonale (principal)
CPT/HCPCS: 36415; 85610

== ENCOUNTER → 2025-06-19 09:59 | Outpatient (REF) | payer MEDICARE, BC, SELFPAY ==
[2025-06-19 10:50] LABS: INR 1.94; PT 22.3 Sec (11.4-14.6)
== END ==
LOC: OLABWPC 09:59
PROVIDERS: ATTENDING PHYSICIAN Family Medicine
DX: I26.09 Other pulmonary embolism with acute cor pulmonale (principal)
CPT/HCPCS: 36415; 85610

== ENCOUNTER → 2025-07-03 11:00 | Outpatient (REF) | payer MEDICARE, BC, SELFPAY ==
[2025-07-03 11:51] LABS: INR 1.73; PT 20.4 Sec (11.4-14.6)
== END ==
LOC: OLABWPC 11:00
PROVIDERS: ATTENDING PHYSICIAN Family Medicine
DX: I26.09 Other pulmonary embolism with acute cor pulmonale (principal)
CPT/HCPCS: 36415; 85610

== ENCOUNTER → 2025-07-12 10:17 | Outpatient (REF) | payer MEDICARE, BC, SELFPAY ==
[2025-07-12 11:03] LABS: INR 1.85; PT 21.8 Sec (11.4-14.6)
== END ==
LOC: OLABWPC 10:17
PROVIDERS: ATTENDING PHYSICIAN Family Medicine
DX: I26.09 Other pulmonary embolism with acute cor pulmonale (principal)
CPT/HCPCS: 36415; 85610

== ENCOUNTER → 2025-07-23 09:26 | Outpatient (REF) | payer MEDICARE, BC, SELFPAY ==
[2025-07-23 11:39] LABS: INR 1.66; PT 19.8 Sec (11.4-14.6)
== END ==
LOC: OLABWPC 09:26
PROVIDERS: ATTENDING PHYSICIAN Family Medicine
DX: I26.09 Other pulmonary embolism with acute cor pulmonale (principal)
CPT/HCPCS: 36415; 85610

== ENCOUNTER → 2025-07-31 09:59 | Outpatient (REF) | payer MEDICARE, BC, SELFPAY ==
[2025-07-31 11:20] LABS: INR 2.26; PT 25.0 Sec (11.4-14.6)
== END ==
LOC: OLABWPC 09:59
PROVIDERS: ATTENDING PHYSICIAN Family Medicine
DX: I26.09 Other pulmonary embolism with acute cor pulmonale (principal)
CPT/HCPCS: 36415; 85610

== ENCOUNTER → 2025-08-14 08:58 | Outpatient (REF) | payer MEDICARE, BC, SELFPAY ==
[2025-08-14 13:36] LABS: INR 3.07; PT 31.6 Sec (11.4-14.6)
== END ==
LOC: OLABWPC 08:58
PROVIDERS: ATTENDING PHYSICIAN Family Medicine
DX: I26.09 Other pulmonary embolism with acute cor pulmonale (principal)
CPT/HCPCS: 36415; 85610

== ENCOUNTER → 2025-08-21 11:46 | Outpatient (REF) | payer MEDICARE, BC, SELFPAY ==
[2025-08-21 13:53] LABS: INR 2.82; PT 29.6 Sec (11.4-14.6)
== END ==
LOC: OLABWPC 11:46
PROVIDERS: ATTENDING PHYSICIAN Family Medicine
DX: I26.09 Other pulmonary embolism with acute cor pulmonale (principal)
CPT/HCPCS: 36415; 85610

== ENCOUNTER → 2025-08-28 10:39 | Outpatient (REF) | payer MEDICARE, BC, SELFPAY ==
[2025-08-28 12:42] LABS: INR 2.36; PT 25.9 Sec (11.4-14.6)
== END ==
LOC: OLABWPC 10:39
PROVIDERS: ATTENDING PHYSICIAN Family Medicine
DX: I26.09 Other pulmonary embolism with acute cor pulmonale (principal)
CPT/HCPCS: 36415; 85610

== ENCOUNTER → 2025-08-29 11:35 | Outpatient (REF) | payer MEDICARE, BC, SELFPAY ==
[2025-08-29 13:14] LABS: Hematocrit 35.8 % (37.0-47.0); Hemoglobin 11.3 g/dL (12.0-16.0); Mean Corp Hgb Conc. 31.6 g/dL (33.0-37.0); Mean Corpuscular Volume 108.2 fL (81.0-99.0); Nucleated Red Blood Cells % 0 %; Platelet Count 130 10^3/uL (130-400); Red Cell Dist. Width 12.0 % (11.5-14.5)
[2025-08-29 13:42] LABS: Blood Urea Nitrogen 14 mg/dl (7-17); Calcium 9.0 mg/dl (8.4-10.2); Carbon Dioxide 28 mmol/L (22-30); Chloride 108 mmol/L (98-107); Glucose 88 mg/dl (70-99); Potassium 4.6 mmol/L (3.5-5.1); Sodium 140 mmol/L (135-145); eGFR > 60.00
== END ==
LOC: OLABWPC 11:35
PROVIDERS: ATTENDING PHYSICIAN Family Medicine
DX: I10 Essential (primary) hypertension (principal); R26.89 Other abnormalities of gait and mobility; G25.0 Essential tremor
CPT/HCPCS: 36415; 80048; 85025

== ENCOUNTER → 2025-09-04 09:23 | Outpatient (REF) | payer MEDICARE, BC, SELFPAY ==
[2025-09-04 12:28] LABS: INR 2.28; PT 25.2 Sec (11.4-14.6)
== END ==
LOC: OLABWPC 09:23
PROVIDERS: ATTENDING PHYSICIAN Family Medicine
DX: I26.09 Other pulmonary embolism with acute cor pulmonale (principal)
CPT/HCPCS: 36415; 85610

== ENCOUNTER → 2025-09-18 13:12 | Outpatient (REF) | payer MEDICARE, BC, SELFPAY ==
[2025-09-18 13:41] LABS: INR 1.77; PT 20.8 Sec (11.4-14.6)
== END ==
LOC: OLABWPC 13:12
PROVIDERS: ATTENDING PHYSICIAN Family Medicine
DX: I26.09 Other pulmonary embolism with acute cor pulmonale (principal)
CPT/HCPCS: 36415; 85610

== ENCOUNTER → 2025-10-02 11:19 | Outpatient (REF) | payer MEDICARE, BC, SELFPAY ==
[2025-10-02 12:33] LABS: INR 2.35; PT 25.9 Sec (11.4-14.6)
== END ==
LOC: OLABWPC 11:19
PROVIDERS: ATTENDING PHYSICIAN Family Medicine
DX: I26.09 Other pulmonary embolism with acute cor pulmonale (principal)
CPT/HCPCS: 36415; 85610

== ENCOUNTER → 2025-10-09 09:32 | Outpatient (REF) | payer MEDICARE, BC, SELFPAY ==
[2025-10-09 10:33] LABS: INR 2.06; PT 23.4 Sec (11.4-14.6)
== END ==
LOC: OLABWPC 09:32
PROVIDERS: ATTENDING PHYSICIAN Family Medicine
DX: I26.09 Other pulmonary embolism with acute cor pulmonale (principal)
CPT/HCPCS: 36415; 85610